=== PATIENT | female | born 1970 | race Caucasian/White ===

== ENCOUNTER 2016-08-04 14:58 | Observation (INO) ==
[2016-08-04] MEDS ORDERED: Ipratropium/Albuterol Neb 3 ML IH ONE (15:54)
[2016-08-04] MEDS ORDERED: methylPREDNISolone 125 MG/2 ML VIAL IVP ONE (15:54)
--- NOTE | 2016-08-04 15:58 | Emergency Department Note ---
Disposition Clinical Impression: Acute exacerbation of chronic obstructive airways disease Acute bronchitis Qualifiers: Bronchitis organism: other organism Qualified Code(s): J20.8 - Acute bronchitis due to other specified organisms Dyspnea Qualifiers: Dyspnea type: shortness of breath Qualified Code(s): R06.02 - Shortness of breath Disposition: Admitted As Inpatient Condition: Fair Referrals: NO,PCP [Primary Care Provider] - Forms: ED Satisfaction Letter Time of Disposition: 21:01 SOB HPI - General Chief Complaint: ED Shortness of Breath/Dyspnea Stated Complaint: FLANK PAIN, SOB Time Seen by Provider: 08/04/16 15:50 Source: patient Mode of arrival: private vehicle Limitations: no limitations Nursing Notes Reviewed: Yes Vital Signs Reviewed: Yes - History of Present Illness Pt Subjective Complaint: shortness of breath, cough Onset (ago): day(s) (2 days) Context: other (Started feeling some shortness of breath about 2 days ago and then started coughing and bringing up green sputum. She also has a lot of sinus congestion and drainage as well.) Severity: severe Consistency/Duration: constant, gradually worsening Improves with: rest Worsens with: exertion, coughing Known history of: asthma, congestive heart failure, PE Associated symptoms: Reports: pain with inspiration (Located in the right upper back), fever (She feels as though she has had temperatures but has not actually taken her temperature with a thermometer), cough, sputum production. Denies: chest pain Treatment prior to arrival: none Cough present: Yes Cough Description: Productive Sputum production: Yes Sputum Amount: Large Sputum Color: Green - Related Data Home Medications Medication Instructions Recorded Confirmed Albuterol Sulfate [Albuterol 2 puff IH Q4HR PRN 03/09/15 03/31/16 Inhaler] Budesonide/Formoterol 160/4.5 2 puff IH BID 03/09/15 03/31/16 [Symbicort] Albuterol Neb [AccuNeb] 1 vial IH 6XD PRN 11/30/15 03/31/16 Hydroxyzine HCl 25 mg PO Q6H PRN 11/30/15 03/31/16 Montelukast [Singulair] 10 mg PO DAILY 11/30/15 03/31/16 Nicotine Patch [Nicoderm] 21 mg TD DAILY 03/31/16 03/31/16 Oxybutynin [Ditropan] 5 mg PO BID 03/31/16 03/31/16 Previous Rx's Medication Instructions Recorded Blood-Glucose Meter, Drum-Type 1 each MC TID #1 kit 07/09/16 [Accu-Chek] Chair, Shower [SHOWER CHAIR] 1 each .ROUTE DAILY #1 each 07/09/16 Divalproex (24 HR) [Depakote ER 500 mg PO DAILY #30 tab.er.24h 07/09/16 (24 HR)] HYDROcodone/Acet 5/325 mg [[place] 1 tab PO Q6HR PRN #10 tablet 07/09/16 5-325 mg] Insulin DETEMIR [Levemir Flextouch] 30 unit SQ BID #100 mls 07/09/16 Insulin LISPRO [Humalog Kwikpen 10 unit SQ TIDAC #100 mls 07/09/16 U-100] Linagliptin [Tradjenta] 5 mg PO DAILY #30 tablet 07/09/16 Lisinopril [Zestril] 10 mg PO DAILY #30 tablet 07/09/16 Metoclopramide [Reglan] 10 mg PO QIDAC #120 tablet 07/09/16 Metoprolol XL (24 HR) Succ [Toprol 50 mg PO DAILY #30 tab.er.24h 07/09/16 Xl] PredniSONE 10 mg PO DAILY 8 Days 07/09/16 Venlafaxine [Effexor] 37.5 mg PO BID #60 tablet 07/09/16 Allergies Allergy/AdvReac Type Severity Reaction Status Date / Time No Known Allergies Allergy Verified 07/07/16 17:57 All systems ED: reviewed and negative except as stated. Constitutional: Reports: fever (Subjective). Denies: chills ENT ED: Reports: throat pain, congestion, other (Postnasal drainage). Denies: ear pain Cardiovascular: Reports: dyspnea on exertion, orthopnea, other (She complains of swelling to her feet). Denies: chest pain, palpitations Respiratory: Reports: cough, dyspnea, wheezes, sputum production Gastrointestinal: Denies: abdominal pain, nausea, vomiting, diarrhea Genitourinary: Denies: urgency, dysuria Musculoskeletal: Reports: back pain (To the upper back on the right hand side) Integumentary: Denies: rash Neurological: Denies: headache Past Medical History - Past Medical History Attestation: Yes The following information was validated with the patient. Source: patient, old records reviewed, nursing notes reviewed Medical history: Reports: arthritis, asthma, COPD, diabetes, GERD, hypertension , migraine, osteoporosis, pulmonary embolus, renal disease, syncope, other Surgical history: Reports: , cholecystectomy, other Psychiatric history: Reports: anxiety, bipolar, depression, other TOP CAGER history: Reports: no TOP CAGER history - Social History Smoking Status: Current every day smoker Smokeless Tobacco Status: No Alcohol use: Reports: none Drug use: Reports: none Physical Exam - General Limitations: no limitations General appearance: alert, in no apparent distress (Although she has frequent cough and is a little bit tachypneic.) - Head Head exam: atraumatic, normocephalic - Eye Eye exam: Present: normal appearance, PERRL, EOMI - ENT ENT exam: normal exam, normal oropharynx, mucous membranes moist, normal external ear exam - Neck Neck exam: Present: normal inspection, full ROM. Absent: meningismus - Chest Chest inspection: Present: normal inspection, symmetric chest wall rise. Absent : tenderness - Respiratory Respiratory exam: Present: wheezes (Diffuse bilaterally both anteriorly and posteriorly). Absent: stridor - Cardiovascular Cardiovascular exam: Present: normal rhythm, tachycardia, normal heart sounds - Abdominal Exam Abdominal exam: Present: soft, Non-Tender, other (Morbidly obese) - Extremities Exam Extremities exam: Present: full ROM, pedal edema (Mild to moderate bilaterally) . Absent: tenderness - Back Exam Back exam: Present: normal inspection. Absent: tenderness - Neurological Exam Neurological exam: Present: alert, oriented X3 - Psychiatric Psychiatric exam: Present: normal affect, normal mood - Skin Skin exam: Present: warm, dry. Absent: rash Course Course Narrative: Patient will presents with shortness of breath. She has a cough and wheezing as well. Cough is productive of thick green sputum and she has a lot of upper respiratory infection symptoms as well. This would imply an infectious problem. It could be pneumonia. It could be bronchitis aggravating her underlying lung disease. She is however a risk for congestive heart failure and is had PE in the past. I will initiate a workup. In the meantime we will get her breathing treatments and steroids and pain medications while waiting for results. Disposition will be based on diagnostic results and reevaluation. - Reevaluation(s) Reevaluation #1: The laboratory workup is negative, the chest x-ray is negative, the CAT scan does not show any evidence of pulmonary embolism but is showing some indications of inflammation. Patient is coughing up a lot of green material. I think that this is acute bronchitis that is exacerbating her COPD and causing her to need oxygen. She reports increasing her oxygen at home. Repeat clinical exam after aerosol treatments and steroids reveals persistent bronchospasm. I am going to arrange to admit the patient to the hospital. Time: 20:59 - Consultations Consultation #1: Dr. Long, hospitalist - I spoke to the hospitalist about the patient. We discussed the history and physical and diagnostic results. We discussed emergency department course and the fact the patient is still pretty short of breath at rest. She is accepted patient for admission to the hospital. She recommends Levaquin. We will get her started on here the patient will be admitted to the floor. Time: 21:16 Vital Signs Temperature 99.0 F 08/04/16 15:10 Pulse Rate 105 08/04/16 15:10 Respiratory Rate 20 08/04/16 15:10 Blood Pressure 169/74 08/04/16 15:10 O2 Sat by Pulse Oximetry 95 08/04/16 15:10 Temperature 99.0 F 08/04/16 15:10 Pulse Rate 93 08/04/16 19:25 Respiratory Rate 20 08/04/16 19:25 Blood Pressure 145/84 08/04/16 19:25 O2 Sat by Pulse Oximetry 95 08/04/16 19:25 Oxygen Delivery Oxygen Delivery Room Air Shortness of Breath/Dyspnea - Medical Records Medical records reviewed: Yes I reviewed the patient's medical records. - Lab Data Lab results reviewed: Yes I reviewed the patient's lab results. Result diagrams: 08/04/16 17:05 08/04/16 17:05 Lab Results 08/04/16 08/04/16 08/04/16 Range/Units 17:05 17:05 17:05 WBC 15.0 H (4.3-11.1) K/mcL RBC 4.08 (3.82-4.97) M/mcL Hgb 11.6 (11.5-15.4) g/dL Hct 36.1 (35.3-44.9) % MCV 88.5 (83.0-100.0) fL MCH 28.4 (28.0-33.3) pg MCHC 32.1 (31.6-35.5) g/dL RDW 14.8 H (11.5-14.5) % Plt Count 329 (140-400) K/mcL MPV 9.8 (9.4-12.4) fL Immature Gran % 0.8 (0-4) % Seg Neutrophils % 76.4 % Lymphocytes % 17.3 % Monocytes % 5.1 % Eosinophils % 0.1 % Basophils % 0.3 % Neutrophils # 11.5 H (1.6-8.9) K/mcL Lymphocytes # 2.6 (0.6-4.6) K/mcL Monocytes # 0.8 (0.0-1.3) K/mcL Eosinophils # 0.0 (0.0-0.6) K/mcL Basophils # 0.1 (0.0-0.2) K/mcL Immature Plt Fraction 3.1 (1.1-6.1) % PT 10.3 (9.4-12.1) Seconds INR 1.0 APTT 22.3 L (26.0-36.0) Seconds D-Dimer 519 H (0-500) ng/mLFEU Sodium 136 (136-145) mEq/L Potassium 4.0 (3.5-4.5) mEq/L Chloride 103 (98-109) mEq/L Carbon Dioxide 24 (19-29) mEq/L BUN 13 (7-20) mg/dL Creatinine 0.95 (0.57-1.11) mg/dL Est GFR ( Amer) > 60 (> 60) Est GFR (Non-Af Amer) > 60 (> 60) BUN/Creatinine Ratio 14 (6-26) Glucose 111 H (70-99) mg/dL Calculated Osmolality 283 (280-300) Calcium 8.5 L (8.6-10.8) mg/dL Troponin I (0-0.03) ng/mL B-Natriuretic Peptide (0-100) pg/mL 08/04/16 08/04/16 Range/Units 17:05 17:05 WBC (4.3-11.1) K/mcL RBC (3.82-4.97) M/mcL Hgb (11.5-15.4) g/dL Hct (35.3-44.9) % MCV (83.0-100.0) fL MCH (28.0-33.3) pg MCHC (31.6-35.5) g/dL RDW (11.5-14.5) % Plt Count (140-400) K/mcL MPV (9.4-12.4) fL Immature Gran % (0-4) % Seg Neutrophils % % Lymphocytes % % Monocytes % % Eosinophils % % Basophils % % Neutrophils # (1.6-8.9) K/mcL Lymphocytes # (0.6-4.6) K/mcL Monocytes # (0.0-1.3) K/mcL Eosinophils # (0.0-0.6) K/mcL Basophils # (0.0-0.2) K/mcL Immature Plt Fraction (1.1-6.1) % PT (9.4-12.1) Seconds INR APTT (26.0-36.0) Seconds D-Dimer (0-500) ng/mLFEU Sodium (136-145) mEq/L Potassium (3.5-4.5) mEq/L Chloride (98-109) mEq/L Carbon Dioxide (19-29) mEq/L BUN (7-20) mg/dL Creatinine (0.57-1.11) mg/dL Est GFR ( Amer) (> 60) Est GFR (Non-Af Amer) (> 60) BUN/Creatinine Ratio (6-26) Glucose (70-99) mg/dL Calculated Osmolality (280-300) Calcium (8.6-10.8) mg/dL Troponin I 0.01 (0-0.03) ng/mL B-Natriuretic Peptide 54 (0-100) pg/mL - Radiology Data Radiology results reviewed: Yes I reviewed the patient's radiology results. - EKG Data EKG attestation: Yes I reviewed and interpreted this EKG. EKG shows normal: Reports: sinus rhythm, axis, intervals, QRS complexes, ST-T waves Rate: Reports: tachycardia Interpretation: Reports: other (Sinus tachycardia. Otherwise no acute changes.)
[2016-08-04] MEDS ORDERED: *HR* HYDROmorphone (PF) 1 MG/ML SYRINGE IV ONE (16:02)
[2016-08-04] MEDS ORDERED: Ketorolac 30 MG/ML VIAL IV ONE (16:02)
[2016-08-04 17:16] LABS: Basophils # 0.1 K/mcL (0.0-0.2); Basophils % 0.3 %; Eosinophils % 0.1 %; Hematocrit 36.1 % (35.3-44.9); Hemoglobin 11.6 g/dL (11.5-15.4); Immature Granulocytes % 0.8 % (0-4); Immature Platelets 3.1 % (1.1-6.1); Lymphocytes # 2.6 K/mcL (0.6-4.6); Lymphocytes % 17.3 %; Mean Corpuscular HGB Conc 32.1 g/dL (31.6-35.5); Mean Corpuscular Hemoglobin 28.4 pg (28.0-33.3); Mean Corpuscular Volume 88.5 fL (83.0-100.0); Mean Platelet Volume 9.8 fL (9.4-12.4); Monocytes # 0.8 K/mcL (0.0-1.3); Monocytes % 5.1 %; Neutrophils # 11.5 K/mcL (1.6-8.9); Platelet Count 329 K/mcL (140-400); Red Blood Count 4.08 M/mcL (3.82-4.97); Red Cell Distribution Width 14.8 % (11.5-14.5); Segmented Neutrophils % 76.4 %
[2016-08-04 17:26] LABS: Prothrombin Time 10.3 Seconds (9.4-12.1)
[2016-08-04 17:28] LABS: Activated Partial Thrombo Time 22.3 Seconds (26.0-36.0)
[2016-08-04 17:30] LABS: BUN/Creatinine Ratio 14 (6-26); Blood Urea Nitrogen 13 mg/dL (7-20); Calcium 8.5 mg/dL (8.6-10.8); Carbon Dioxide 24 mEq/L (19-29); Chloride 103 mEq/L (98-109); Glucose 111 mg/dL (70-99); Osmolality,Calculated 283 (280-300); Sodium 136 mEq/L (136-145); eGFR For African Americans > 60 (> 60); eGFR For Non-African Americans > 60 (> 60)
[2016-08-04] MEDS ORDERED: Levofloxacin 750 MG/150 ML 750 MG/150 ML BAG IVPB ONE (21:16)
[2016-08-04] MEDS ORDERED: hydrOXYzine pamoate 25 MG CAPSULE PO PRN (21:57)
[2016-08-04] MEDS ORDERED: Naloxone 0.4 MG/ML INJ IVP PRN (22:00)
[2016-08-04] MEDS ORDERED: *HR* Morphine 2 MG/ML SYRINGE IVP PRN (22:00)
[2016-08-04] MEDS ORDERED: Dextrose Gel 15 GM PO PRN ×2 (22:00)
[2016-08-04] MEDS ORDERED: *HR* Promethazine 25 MG/ML VIAL IVP PRN (22:00)
[2016-08-04] MEDS ORDERED: MOM Conc 10 ML UD.LIQ PO PRN (22:00)
[2016-08-04] MEDS ORDERED: D5% in Water 1,000 ML IV PRN (22:00)
[2016-08-04] MEDS ORDERED: Mag Hydrox/Al Hydrox/Simeth 30 ML UDC PO PRN (22:00)
[2016-08-04] MEDS ORDERED: Acetaminophen 325 MG TABLET PO PRN (22:00)
[2016-08-04] MEDS ORDERED: *HR* Dextrose 50 % in Water (Syg) 50 ML SYRINGE IVP PRN (22:00)
[2016-08-04] MEDS ORDERED: Albuterol 2.5 MG/3 ML NEBULIZER IH PRN (22:10)
[2016-08-04] MEDS ORDERED: Dextromethorphan Polistrx(12h) 30 MG/5 ML UDC PO STA (22:20)
--- NOTE | 2016-08-04 22:25 | Internal Med History&Physical ---
Date of Encounter: 08/04/16 Time of Encounter: 22:00 Assessment and Plan (1) Acute and chronic respiratory failure with hypoxia Current visit: Yes Status: Acute . (2) Acute bronchitis and bronchiolitis Current visit: Yes Status: Acute . (3) Acute exacerbation of chronic obstructive airways disease Current visit: Yes Status: Acute . (4) At risk for abuse of opiates Current visit: Yes Status: Chronic . (5) At risk for adverse drug event Current visit: Yes Status: Chronic . (6) At risk for polypharmacy Current visit: Yes Status: Chronic . (7) COPD (chronic obstructive pulmonary disease) Current visit: Yes Status: Chronic . Qualifiers: COPD type: COPD with acute exacerbation Qualified Code(s): J44.1 - Chronic obstructive pulmonary disease with (acute) exacerbation (8) Diabetes type 2, uncontrolled Current visit: Yes Status: Chronic . Qualifiers: Diabetes mellitus complication status: with unspecified complications Diabetes mellitus retirement insulin use: unspecified retirement insulin use status Qualified Code(s): E11.8 - Type 2 diabetes mellitus with unspecified complications; E11.65 - Type 2 diabetes mellitus with hyperglycemia (9) Anxiety and depression Current visit: Yes Status: Chronic . (10) Bipolar 1 disorder Current visit: Yes Status: Chronic . (11) CKD (chronic kidney disease) stage 3, GFR 30-59 ml/min Current visit: Yes Status: Chronic . (12) Chronic pain associated with significant psychosocial dysfunction Current visit: Yes Status: Chronic . (13) Morbid obesity with BMI of 60.0-69.9, adult Current visit: Yes Status: Chronic . (14) Nicotine dependence with nicotine-induced disorder Current visit: Yes Status: Chronic . Qualifiers: Nicotine product type: cigarettes Qualified Code(s): F17.219 - Nicotine dependence, cigarettes, with unspecified nicotine-induced disorders (15) VITO (obstructive sleep apnea) Current visit: Yes Status: Chronic . (16) Polysubstance abuse Current visit: Yes Status: Chronic . (17) Protein-calorie malnutrition, mild Current visit: Yes Status: Chronic . (18) Tobacco abuse Current visit: Yes Status: Chronic . (19) Hypoventilation associated with obesity syndrome Current visit: Yes Status: Chronic . (20) Debility, unspecified Current visit: Yes Status: Acute . (21) History of noncompliance with medical treatment, presenting hazards to health Current visit: Yes Status: Chronic . (22) Noncompliance with CPAP treatment Current visit: Yes Status: Chronic . (23) Delirium due to conditions classified elsewhere Current visit: Yes Status: Acute (24) Toxic metabolic encephalopathy Current visit: Yes Status: Acute . Internal Medicine - H&P: HPI Chief complaint: Difficulty breathing. Flank pain. Admitted From: Emergency Dept Plans for Post Hospital Care: Home History of present illness: Ms. Boyd is a 45 year old female with medical history significant for advanced COPD, chronic respiratory failure home oxygen dependent, VITO-CPAP noncompliant (suspect OHS), diastolic CHF, type 2 diabetes mellitus, asthma, GERD, osteoarthritis, osteoporosis, H/O DVT/PE, CKD, bipolar disorder, depression and anxiety disorder, polysubstance abuse hx (cocaine, marijuana, prescription drugs), H/O medical treatment noncompliance, morbid obesity, debility/severe deconditioning, nicotine dependency/abuse. The patient was visited and interviewed and examined. The patient is admitted to [facility] via the emergency department when she presented with reports of progressive shortness of breath and increasing work of breathing in spite of home oxygen and bronchodilator therapy. Symptoms have progressed over a week's period of time since the 2 days leading up to admission. Acknowlegded a productive cough and audible wheezing. Sputum was thick and green and copious. Sinus congestion and drainage has also been experienced Pain was elicited with deep inspiration and cough in the chest and upper abdomen and flank/right upper back. She has experienced subjective feverishness and chills. She has known advanced COPD and is home oxygen dependent. She also has obstructive sleep apnea (and likely obstructive hypoventilation syndrome in the obese) but has been noncompliant with CPAP therapy. Her oxygen demands have increased of late concurrent respiratory symptoms. She continues to smoke. Cannot validate any specific sick contacts. Acknowledges no recent travel. denies any recent hospitalizations or prolonged immobilization. Denies any concurrent pain or swelling of lower extremities. History is noteworthy for prior DVT and PEs. Patient is not on any current chronic anticoagulation therapy. She has experienced rather predictable seasonal exacerbations of bronchitis and pneumonia. Current symptoms are exacerbated with exertion and coughing but does seemingly improved while quiet and at rest. Denies any evidence of bleeding events (hemoptysis epistaxis hematemesis and melena hematochezia by report rectum hematuria cutaneous ecchymoses). Findings in the ED: Temperature 99 pulse 90-105 respiration 20 BP 140-169/70-84 O2 saturation 95% room air. WBC 15 hemoglobin 11.6 platelets 229, 000. RDW 14.8. Differential showed an increase in neutrophils. PT 10.3 INR 1 PTT 22.3 d-dimer 519. Metabolic panel normal BUN 13 creatinine 0.95. Glucose 111 osmolality 283. Calcium 8.5. Troponin 0.01. BNpeptide 54. CT of chest demonstrated no evidence for pulmonary embolism or aortic dissection/aneurysm. Scattered subtle faint centrilobular nodules, likely related to infection versus inflammation seen. No evidence of significant mediastinal adenopathy. Heart and pericardium demonstrated no acute abnormality. Centrilobular nodules greatest in the right hemithorax and left upper lobe. No evidence for pleural effusion or pneumothorax. Limited images of the upper abdomen and soft tissue and bone unremarkable. Portable chest x-ray revealed no acute or active cardiopulmonary process. Stable elevation of right hemidiaphragm diaphragm noted. No overt pulmonary edema. EKG shows normal sinus rhythm/tachycardia. No acute ischemic changes. Preliminary impression suggests acute presentation of chronic obstructive pulmonary disease with evidence for bilateral bronchitis- bronchiolitis-pneumonitis. Presentation is associated with acute on chronic hypoxic respiratory failure. Systemic inflammatory response syndrome and sepsis criteria are met at the time of admission. Acute veno-thromboembolic disease/pulmonary emboli was ruled out with CTA of chest findings. Screening studies for ACS/UA/CHF are benign. The patient is at risk for acute clinical decline and mobility given her presenting chief complaints, clinical findings and comorbidities. We will continue treatment progress comprehensively. Cumulative laboratory and radiographic data base was reviewed, considered and discussed. Pertinent ancillary medical records including ECW and PCI documentation, when available, was reviewed and considered. Given the patient's presenting concerns, past medical history, clinical findings and symptoms, she is admitted at this time will undergo further evaluation and disposition. Orders were written as per the computerized physician supervisor border department system.......................................................................... .................... Consultative opinions will be sought as clinical circumstances justify. Pain management needs will be addressed. Laboratory and radiographic data base will be updated as appropriate. Studies include: Cultures of blood and urine and sputum, cardiac injury panel, BNP, metabolic and hematologic panel, magnesium, phosphorus, ionized calcium, thyroid panel, lipid profile, A1c, C-peptide, CRP, sedimentation rate, respiratory infection profile, respiratory virus panel, blood gas, UDS, U/A, coagulation profile, lactic acid, serologies, etc. Precautions: Aspiration, fall, delirium protocol/surveillance initiated. Telemetry with continuous hemodynamic monitoring and pulse oximetry initiated. Empiric antibody coverage: Intravenous Rocephin and azithromycin pending culture data. Special studies: CTA chest, chest x-ray, telemetry, EKG. Pulmonary toilet: Incentive spirometry, aerosol bronchodilator, mucolytic, antitussive, supplemental oxygen. Corticosteroid therapy. CPAP/BiPAP supplemental oxygen delivery therapy. Aerosol Mucomyst therapy. Fluid and electrolyte repletion efforts will proceed. Careful attention to fluid balance and renal recovery will be emphasized. Avoidance of nephrotoxic exposure and adverse drug drug interaction in the setting of impaired renal function will be monitored closely. Acute coronary syndrome protocol/surveillance initiated. DVT and PUD prophylaxis initiated: PPI therapy, intermittent pneumatic cuffs. Subcutaneous heparin/lovenox. Early ambulation will be encouraged. Immunization updates recommended. Influenza and pneumococcal vaccinations as part of ongoing preventative healthcare recommendations strongly recommended. Smoking cessation counseling briefly addressed. Patient accepts nicotine substitution during this hospitalization. Advanced care directive discussion briefly addressed. Patient does declare specific healthcare restrictions at this time. Cardiovascular risk appraisal and cardiovascular risk reduction efforts will be emphasized. Physical and occupational therapy may be consulted to assess patient's functional capacity and progress mobility as her circumstances permit. Sliding scale, basal and nutritional insulin coverage, ADA dietary restraint and schedule an as-needed basis fingerstick glucose assessments were initiated. Nutrition/diabetes education counseling may be considered as circumstances justify. Outpatient medication schedules will be reviewed confirmed and facilitated as appropriate. Reconciliation of home treatments including adjustments, substitutions and reintroduction into the treatment regimen will address necessary maintenance therapies for chronic pre-existing medical conditions. Plan of care has been reviewed and discussed in detail with the patient. Questions addressed. Hospital course will depend upon collective clinical findings, treatment response and potential consultative interventions. Patient is at risk for further acute clinical decline and mobility due to her presenting chief complaints and comorbid conditions. Condition is serious. Prognosis is cautiously optimistic. CODE STATUS is DNR, comfort care arrest, DNI Past Med Surg Social Fam HX - Past Medical History Source: old records reviewed Medical history: arthritis, asthma, CHF (2016 echo LVEF 60%. Normal LV chamber size wall thickness and function. Normal RV chamber size and thickness and function. No significant valvular dysfunction. No evidence of pulmonary hypertension. Mild left ventricular diastolic dysfunction. Mildly dilated left atrium. Trace tricuspid regurgitation.), COPD, coronary artery disease, DVT, diabetes, fibromyalgia, GERD, hyperlipidemia, hypertension, migraine, osteoporosis, pulmonary embolus, renal disease, syncope, other Psychiatric history: anxiety, bipolar, depression, other - Past Surgical History Surgical History: , cholecystectomy, other - Social History Smoking Status: Current every day smoker Packs per day: 1+ (~30yrs) Smokeless Tobacco Status: No Alcohol use: none Drug use: none Occupational status: unemployed, disabled Current living situation: With Family Activity Level: Independent ambulation, Mostly sedentary Recent Out of Country Travel Within the Last 8 Weeks: No Exposure or Possible Exposure to Illness During Travel: No - Family History Father Living Status: Hx Family Cancer: Yes (testicular, brain) Mother Family Member Ethnicity: Non- Living Status: Hx Family Cardiac Disorders: Yes (NH) Hx Family Endocrine Disorder: Yes (DM) Hx Family Medical Disorders: Yes (HTN) Brother Living Status: Still Living Hx Family Cardiac Disorders: Yes (NH, CAD, HTN, HLD) Internal Medicine - H&P: Meds Albuterol Sulfate [Albuterol Inhaler] 2 puff IH Q4HR PRN 03/09/15 [History] Budesonide/Formoterol 160/4.5 [Symbicort] 2 puff IH BID 03/09/15 [History] Albuterol Neb [AccuNeb] 1 vial IH 6XD PRN 11/30/15 [History] Hydroxyzine HCl 25 mg PO Q6H PRN 11/30/15 [History] Montelukast [Singulair] 10 mg PO DAILY 11/30/15 [History] Nicotine Patch [Nicoderm] 21 mg TD DAILY 03/31/16 [History] Oxybutynin [Ditropan] 5 mg PO BID 03/31/16 [History] Divalproex (24 HR) [Depakote ER (24 HR)] 500 mg PO DAILY #30 tab.er.24h [Rx] HYDROcodone/Acet 5/325 mg [[place] 5-325 mg] 1 tab PO Q6HR PRN #10 tablet [Rx] Insulin DETEMIR [Levemir Flextouch] 30 unit SQ BID #100 mls 07/09/16 [Rx] Insulin LISPRO [Humalog Kwikpen U-100] 10 unit SQ TIDAC #100 mls 07/09/16 [Rx] Linagliptin [Tradjenta] 5 mg PO DAILY #30 tablet 07/09/16 [Rx] Lisinopril [Zestril] 10 mg PO DAILY #30 tablet 07/09/16 [Rx] Metoclopramide [Reglan] 10 mg PO QIDAC #120 tablet 07/09/16 [Rx] Metoprolol XL (24 HR) Succ [Toprol Xl] 50 mg PO DAILY #30 tab.er.24h 07/09/16 [ Rx] PredniSONE 10 mg PO DAILY 8 Days 07/09/16 [Rx] Venlafaxine [Effexor] 37.5 mg PO BID #60 tablet 07/09/16 [Rx] Allergies No Known Allergies Allergy (Verified 07/07/16 17:57) All Systems PM: A 10-system review of systems was performed and is negative for pertinent findings except as documented above in the HPI. - Constitutional Constitutional: as per HPI, fatigue, malaise, no chills, no fever(s), no night sweats - EENT Eyes: as per HPI, no change in vision, no discharge, no pain, no photophobia Ears: as per HPI, no ear discharge, no ear pain, no tinnitus Nose, mouth and throat: as per HPI, nasal congestion, no dysphagia, no nasal discharge, no neck pain, no sore throat - Cardiovascular Cardiovascular ROS IM: as per HPI, chest pain, dyspnea, dyspnea on exertion, no claudication, no diaphoresis, no lightheadedness, no palpitations, no syncope - Respiratory Respiratory: as per HPI, cough, dyspnea, dyspnea on exertion, wheezing, pain on inspiration, chest congestion, pain with cough, no hemoptysis, no stridor, no excessive phlegm production - Gastrointestinal Gastrointestinal: as per HPI, abdominal pain, other, no diarrhea, no hematemesis , no hematochezia, no melena, no nausea, no vomiting - Genitourinary Genitourinary: as per HPI, other, no change in urinary stream, no dysuria, no flank pain, no hematuria - Musculoskeletal Musculoskeletal ROS IM: as per HPI, arthralgias, back pain, myalgias, no numbness, no tingling - Integumentary Integumentary IM: as per HPI, no rash, no unusual bruising - Neurological Neurological ROS: as per HPI, no confusion, no convulsions, no focal weakness, no numbness, no tingling, no tremor(s) - Psychiatric Psychiatric: as per HPI - Endocrine Endocrine IM: as per HPI - Hematologic/Lymphatic Hematologic/Lymphatic: as per HPI, no easy bruising - Allergic/Immunologic Allergic/Immunologic: as per HPI - Constitutional Vitals: Temp Pulse Resp BP Pulse Ox 98.1 F 96 22 141/74 96 08/04/16 22:17 08/04/16 22:17 08/04/16 22:17 08/04/16 22:17 08/04/16 22:17 General appearance: Present: cooperative, mild distress, A&O X 3, morbidly obese , answers questions appropriately - Head Head exam: Present: atraumatic, normal inspection, normocephalic - Eye Eye exam: Present: EOMI, PERRL, conjuntiva pink, sclera anicteric Pupils: Present: normal accommodation, PERRL - ENT ENT exam: Present: mucous membranes moist, normal external ear exam, normal oropharynx - Neck Neck exam general surgery: Present: full ROM, supple, trachea midline. Absent: lymphadenopathy, tenderness, nuchal rigidity - Respiratory Respiratory exam: Present: accessory muscle use, chest wall tenderness, decreased breath sounds, prolonged expiratory phase, rhonchi, wheezes. Absent: rales, respiratory distress, stridor, tachypnea - Cardiovascular Cardiovascular exam: Present: distant heart sounds, RRR, +S1, +S2, tachycardia. Absent: diastolic murmur, gallop, rubs, systolic murmur - GI/Abdominal GI/Abdominal exam: Present: diminished bowel sounds, distended, soft, no peritoneal signs. Absent: tenderness - Extremities Exam Extremities exam: Present: full ROM, pedal edema, tenderness, warm, radial pulses palpable and symetrical. Absent: calf tenderness, cyanotic - Neurological Exam Neurological exam: Present: alert, CN II-XII intact, oriented X3, no focal deficits. Absent: pronater drift, facial droop, speech deficit - Psychiatric Psychiatric exam: Present: normal affect, normal mood - Skin Skin exam: Present: dry, intact, warm. Absent: petechiae, rash, urticaria, vesicles Internal Med - H&P Results - Labs CBC & Chem 7: 08/05/16 01:00 08/05/16 01:00 - Impressions Vital Signs Temp Pulse Resp BP Pulse Ox 08/04/16 22:17 98.1 F 96 22 141/74 96 08/04/16 21:47 20 145/84 08/04/16 19:25 93 20 145/84 95 08/04/16 17:26 97 20 145/84 95 08/04/16 16:08 20 95 08/04/16 15:10 99.0 F 105 20 169/74 95 Intake and Output 08/04/16 08/04/16 08/04/16 07:59 15:59 23:59 Other: Stool Characteristics Normal for Patient Weight 154.221 kg 152.407 kg Blood Glucose* 304 Patient Weight 08/04/16 23:59 Weight 152.407 kg Short CBC 08/04/16 Range/Units 17:05 WBC 15.0 H (4.3-11.1) K/mcL Hgb 11.6 (11.5-15.4) g/dL Hct 36.1 (35.3-44.9) % Plt Count 329 (140-400) K/mcL Neutrophils # 11.5 H (1.6-8.9) K/mcL BMP 08/04/16 Range/Units 17:05 Sodium 136 (136-145) mEq/L Potassium 4.0 (3.5-4.5) mEq/L Chloride 103 (98-109) mEq/L Carbon Dioxide 24 (19-29) mEq/L BUN 13 (7-20) mg/dL Creatinine 0.95 (0.57-1.11) mg/dL Glucose 111 H (70-99) mg/dL Calcium 8.5 L (8.6-10.8) mg/dL Cardiac Enzymes 08/04/16 Range/Units 17:05 Troponin I 0.01 (0-0.03) ng/mL Abnormal lab results WBC 15.0 K/mcL (4.3-11.1) H 08/04/16 17:05 RDW 14.8 % (11.5-14.5) H 08/04/16 17:05 Neutrophils # 11.5 K/mcL (1.6-8.9) H 08/04/16 17:05 APTT 22.3 Seconds (26.0-36.0) L 08/04/16 17:05 D-Dimer 519 ng/mLFEU (0-500) H 08/04/16 17:05 Glucose 111 mg/dL (70-99) H 08/04/16 17:05 Calcium 8.5 mg/dL (8.6-10.8) L 08/04/16 17:05 Allergies Allergy/AdvReac Type Severity Reaction Status Date / Time No Known Allergies Allergy Verified 07/07/16 17:57 Laboratory Results WBC 15.0 K/mcL (4.3-11.1) H 08/04/16 17:05 RBC 4.08 M/mcL (3.82-4.97) 08/04/16 17:05 Hgb 11.6 g/dL (11.5-15.4) 08/04/16 17:05 Hct 36.1 % (35.3-44.9) 08/04/16 17:05 MCV 88.5 fL (83.0-100.0) 08/04/16 17:05 MCH 28.4 pg (28.0-33.3) 08/04/16 17:05 MCHC 32.1 g/dL (31.6-35.5) 08/04/16 17:05 RDW 14.8 % (11.5-14.5) H 08/04/16 17:05 Plt Count 329 K/mcL (140-400) 08/04/16 17:05 MPV 9.8 fL (9.4-12.4) 08/04/16 17:05 Immature Gran % 0.8 % (0-4) 08/04/16 17:05 Seg Neutrophils % 76.4 % 08/04/16 17:05 Lymphocytes % 17.3 % 08/04/16 17:05 Monocytes % 5.1 % 08/04/16 17:05 Eosinophils % 0.1 % 08/04/16 17:05 Basophils % 0.3 % 08/04/16 17:05 Neutrophils # 11.5 K/mcL (1.6-8.9) H 08/04/16 17:05 Lymphocytes # 2.6 K/mcL (0.6-4.6) 08/04/16 17:05 Monocytes # 0.8 K/mcL (0.0-1.3) 08/04/16 17:05 Eosinophils # 0.0 K/mcL (0.0-0.6) 08/04/16 17:05 Basophils # 0.1 K/mcL (0.0-0.2) 08/04/16 17:05 Immature Plt Fraction 3.1 % (1.1-6.1) 08/04/16 17:05 PT 10.3 Seconds (9.4-12.1) 08/04/16 17:05 INR 1.0 08/04/16 17:05 APTT 22.3 Seconds (26.0-36.0) L 08/04/16 17:05 D-Dimer 519 ng/mLFEU (0-500) H 08/04/16 17:05 Sodium 136 mEq/L (136-145) 08/04/16 17:05 Potassium 4.0 mEq/L (3.5-4.5) 08/04/16 17:05 Chloride 103 mEq/L (98-109) 08/04/16 17:05 Carbon Dioxide 24 mEq/L (19-29) 08/04/16 17:05 BUN 13 mg/dL (7-20) 08/04/16 17:05 Creatinine 0.95 mg/dL (0.57-1.11) 08/04/16 17:05 Est GFR ( Amer) > 60 (> 60) 08/04/16 17:05 Est GFR (Non-Af Amer) > 60 (> 60) 08/04/16 17:05 BUN/Creatinine Ratio 14 (6-26) 08/04/16 17:05 Glucose 111 mg/dL (70-99) H 08/04/16 17:05 Calculated Osmolality 283 (280-300) 08/04/16 17:05 Calcium 8.5 mg/dL (8.6-10.8) L 08/04/16 17:05 Troponin I 0.01 ng/mL (0-0.03) 08/04/16 17:05 B-Natriuretic Peptide 54 pg/mL (0-100) 08/04/16 17:05 Impressions Chest X-Ray 08/04/16 15:54 IMPRESSION: No acute cardiopulmonary findings. D/ / Debbie Acosta MD / Debbie Acosta MD Interpreting Provider: Debbie Acosta MD Chest CTA 08/04/16 17:49 IMPRESSION: No evidence of pulmonary embolism. Scattered subtle faint centrilobular nodules, likely related to infection/inflammation. D/ / Boston Leon MD / Boston Leon MD Interpreting Provider: Boston Leon MD
[2016-08-04] MEDS: Ipratropium/Albuterol Neb 3 ML IH SCH (22:42)
[2016-08-04] MEDS: 0.9 % Sodium Chloride 1,000 ML IVC SCH (23:11)
[2016-08-04] MEDS: Famotidine 20 MG TABLET PO SCH (23:13)
[2016-08-04] MEDS: Insulin LISPRO 300 UNITS/3 ML VIAL SQ SCH (23:27)
[2016-08-04 23:29] LABS: Hemoglobin A1C 10.6 %
[2016-08-05 01:12] LABS: Adenovirus Not Detected (Not Detect); Bordetella Pertussis Not Detected (Not Detect); Chlamydophila pneumoniae Not Detected (Not Detect); Coronavirus 229E Not Detected (Not Detect); Coronavirus HKU1 Not Detected (Not Detect); Coronavirus NL63 Not Detected (Not Detect); Coronavirus OC43 ***DETECTED*** (Not Detect); Human Metapneumovirus Not Detected (Not Detect); Human Rhinovirus/Enterovirus Not Detected (Not Detect); Influenza A Subtype 2009 H1 Not Detected (Not Detect); Influenza A Untypeable Not Detected (Not Detect); Influenza B Not Detected (Not Detect); Mycoplasma pneumoniae Not Detected (Not Detect); Parainfluenza Virus 1 Not Detected (Not Detect); Parainfluenza Virus 2 Not Detected (Not Detect); Parainfluenza Virus 3 Not Detected (Not Detect); Parainfluenza Virus 4 Not Detected (Not Detect); Respiratory Syncytial Virus Not Detected (Not Detect)
[2016-08-05 01:25] LABS: Hematocrit 35.8 % (35.3-44.9); Hemoglobin 11.6 g/dL (11.5-15.4); Mean Corpuscular HGB Conc 32.4 g/dL (31.6-35.5); Mean Corpuscular Hemoglobin 28.6 pg (28.0-33.3); Mean Corpuscular Volume 88.2 fL (83.0-100.0); Mean Platelet Volume 10.3 fL (9.4-12.4); Platelet Count 320 K/mcL (140-400); Red Blood Count 4.06 M/mcL (3.82-4.97); Red Cell Distribution Width 14.6 % (11.5-14.5)
[2016-08-05 01:32] LABS: Bilirubin,Urine Small (Negative); Blood,Urine Trace (Negative); Clarity,Urine Clear (Clear); Color,Urine Yellow (Yellow); Glucose,Urine (UA) >=1000 mg/dL (Normal); Ketones,Urine Negative (Negative); Leukocyte Esterase,Urine Negative (Negative); Nitrite,Urine Negative (Negative); Protein,Urine >=300 mg/dL (Neg-Trace); Specific Gravity,Urine > 1.030 (1.010-1.025); Urobilinogen,Urine Normal (Normal)
[2016-08-05 01:35] LABS: Bacteria,Urine None Seen per hpf (None-Few); Hyaline Casts,Urine None Seen per lpf (None-Few); Squamous Epithelial Cell,Urine Many per lpf (None-Few); WBC,Urine 0-3 per hpf (0-3)
[2016-08-05 01:39] LABS: Amphetamine Screen,Urine Negative ng/mL (Cutoff=1000); Barbiturate Screen,Urine Negative ng/mL (Cutoff=200); Benzodiazepines Screen,Urine Negative ng/mL (Cutoff=200); Cannabinoid Screen,Urine Positive ng/mL (Cutoff = 50); Cocaine Screen,Urine Negative ng/mL (Cutoff= 300); Opiate Screen,Urine Positive ng/mL (Cutoff=300); Phencyclidine Screen,Urine Negative ng/mL (Cutoff=25)
[2016-08-05 01:43] LABS: Calcium 8.3 mg/dL (8.6-10.8); Chol/HDL Ratio 3.4 (0-4.9); Magnesium 1.7 mg/dL (1.6-2.6); Phosphorous 4.7 mg/dL (2.3-4.7); Potassium 4.5 mEq/L (3.5-4.5)
[2016-08-05] MEDS: *HR* OxyCODONE Immed Rel 5 MG TABLET PO PRN ×3 (04:16→21:23)
[2016-08-05] MEDS: Benzonatate 100 MG CAPSULE PO PRN ×2 (04:16→10:07)
[2016-08-05] MEDS: Ipratropium/Albuterol Neb 3 ML IH SCH ×4 (04:54→21:59)
[2016-08-05] MEDS ORDERED: INSULIN LISPRO 10 UNIT SQ SCH (07:30)
[2016-08-05] MEDS ORDERED: NON-FORMULARY MEDICATION 1 EACH EACH (Insulin Detemir [Levemir Flextouch] 30 UNIT) SQ SCH (09:00)
[2016-08-05] MEDS: Insulin LISPRO 300 UNITS/3 ML VIAL SQ SCH ×7 (10:04→20:34)
[2016-08-05] MEDS: Nicotine 21 MG PATCH.TD24 TD SCH (10:05)
[2016-08-05] MEDS: Insulin DETEMIR 100 UNIT/ML X5UNITS SQ SCH ×2 (10:05→20:33)
[2016-08-05] MEDS: Divalproex (24 HR) 500 MG TABLET PO SCH (10:05)
[2016-08-05] MEDS: Azithromycin 500 MG in D5% in Water 250 ML IVPB SCH (10:06)
[2016-08-05] MEDS: Metoprolol XL (24 HR) Succ 50 MG TAB.ER.24H PO SCH (10:06)
[2016-08-05] MEDS: Famotidine 20 MG TABLET PO SCH ×2 (10:06→20:17)
[2016-08-05] MEDS: predniSONE 20 MG TABLET PO SCH (10:06)
--- NOTE | 2016-08-05 15:13 | Internal Med Progress Note ---
Date of Encounter: 08/05/16 Time of Encounter: 09:55 - Assessment and plan (1) Acute and chronic respiratory failure with hypoxia Current Visit: Yes Status: Acute Assessment and plan: Improving. Due to exacerbation of COPD and acute bronchitis. Continue current management with intravenous steroids, nebulizer treatments. Also on IV antibiotics. (2) Acute bronchitis and bronchiolitis Current Visit: Yes Status: Acute Assessment and plan: Continue antibiotics. (3) Acute exacerbation of chronic obstructive airways disease Current Visit: Yes Status: Acute Assessment and plan: Continue meds, start IV steroids. Continue O2 supplementation. Wean FiO2 as tolerated. (4) Tobacco abuse Current Visit: Yes Status: Chronic Assessment and plan: Surgeon about cessation. Patient willing to make the effort. Has nicotine patch ordered. (5) DVT prophylaxis Current Visit: Yes Status: Acute Assessment and plan: With subcutaneous heparin - Subjective Interval history: Patient is feeling better today. Her respiratory status is improving. Denies any chest pain. Continues to have cough. Still having wheezing. - Constitutional Vitals: Temp Pulse Resp BP Pulse Ox 97.6 F 84 16 125/79 94 L 08/05/16 14:59 08/05/16 14:59 08/05/16 14:59 08/05/16 14:59 08/05/16 14:59 General appearance: Present: cooperative, mild distress, A&O X 3, morbidly obese , answers questions appropriately - Neck Neck exam general surgery: Present: supple, trachea midline. Absent: lymphadenopathy - Respiratory Respiratory exam: Present: prolonged expiratory phase, wheezes. Absent: accessory muscle use, rales, rhonchi - Cardiovascular Cardiovascular exam: Present: RRR, +S1, +S2. Absent: diastolic murmur, gallop, rubs, systolic murmur - GI/Abdominal GI/Abdominal exam: Present: normal bowel sounds, soft, no peritoneal signs. Absent: distended, tenderness - Extremities Exam Extremities exam: Present: warm, radial pulses palpable and symetrical. Absent : calf tenderness, cyanotic, pedal edema - Neurological Exam Neurological exam: Present: CN II-XII intact, oriented X3, no focal deficits. Absent: facial droop, speech deficit Internal Medicine: Result - Labs CBC & Chem 7: 08/05/16 01:00 08/05/16 01:00 Labs: Short CBC 08/05/16 Range/Units 01:00 WBC 11.0 (4.3-11.1) K/mcL Hgb 11.6 (11.5-15.4) g/dL Hct 35.8 (35.3-44.9) % Plt Count 320 (140-400) K/mcL BMP 08/05/16 01:00 Sodium 131 L Potassium 4.5 Chloride 100 Carbon Dioxide 21 BUN 18 Creatinine 1.28 H Glucose 392 H Calcium 8.3 L Cardiac Enzymes 08/05/16 08/05/16 Range/Units 01:00 04:10 Troponin I 0.00 0.01 (0-0.03) ng/mL Urine 08/05/16 Range/Units 01:00 Urine Color Yellow (Yellow) Urine Clarity Clear (Clear) Urine pH 5.0 (5.0-8.0) pH Units Ur Specific [place] > 1.030 H (1.010-1.025) Urine Protein >=300 H (Neg-Trace) mg/dL Urine Glucose (UA) >=1000 H (Normal) mg/dL - ABG Interpretation ABG results: PT/INR, D-dimer PT 10.3 Seconds (9.4-12.1) 08/04/16 17:05 D-Dimer 519 ng/mLFEU (0-500) H 08/04/16 17:05 Consult Discharge Plan - Plan Referrals: NO,PCP [Primary Care Provider] - - Attending Attestation This document has been at least partially created by [employer] recognition technology by Dr. Middleton. Errors in grammar, wording or other phrases may exist. If errors are found after the documentation is signed, they will be addressed individually in the addendum section of this document when appropriate. Medical Decision Making - MDM Narrative Medical decision making narrative: Moderate risk for complications - Lab Data Lab results reviewed: Yes I reviewed the patient's lab results. Result diagrams: 08/05/16 01:00 08/05/16 01:00 Lab Results 08/04/16 08/04/16 08/05/16 Range/Units 22:25 23:30 01:00 WBC 11.0 (4.3-11.1) K/mcL RBC 4.06 (3.82-4.97) M/mcL Hgb 11.6 (11.5-15.4) g/dL Hct 35.8 (35.3-44.9) % MCV 88.2 (83.0-100.0) fL MCH 28.6 (28.0-33.3) pg MCHC 32.4 (31.6-35.5) g/dL RDW 14.6 H (11.5-14.5) % Plt Count 320 (140-400) K/mcL MPV 10.3 (9.4-12.4) fL Sodium (136-145) mEq/L Potassium (3.5-4.5) mEq/L Chloride (98-109) mEq/L Carbon Dioxide (19-29) mEq/L BUN (7-20) mg/dL Creatinine (0.57-1.11) mg/dL Est GFR ( Amer) (> 60) Est GFR (Non-Af Amer) (> 60) BUN/Creatinine Ratio (6-26) Glucose (70-99) mg/dL POC Glucose 304 H (58-89) Calculated Osmolality (280-300) Calcium (8.6-10.8) mg/dL Phosphorus (2.3-4.7) mg/dL Magnesium (1.6-2.6) mg/dL Troponin I (0-0.03) ng/mL B-Natriuretic Peptide (0-100) pg/mL Triglycerides (< 150) mg/dL Cholesterol (< 200) mg/dL LDL Cholesterol, Calc (0-99) mg/dL VLDL Cholesterol, Calc (< 31) mg/dL HDL Cholesterol (40-59) mg/dL Cholesterol/HDL Ratio (0-4.9) Urine Color (Yellow) Urine Clarity (Clear) Urine pH (5.0-8.0) pH Units Ur Specific [place] (1.010-1.025) Urine Protein (Neg-Trace) mg/dL Urine Glucose (UA) (Normal) mg/dL Urine Ketones (Negative) mg/dL Urine Blood (Negative) Urine Nitrite (Negative) Urine Bilirubin (Negative) Urine Urobilinogen (Normal) mg/dL Ur Leukocyte Esterase (Negative) Urine Microscopic RBC (0-3) per hpf Urine Microscopic WBC (0-3) per hpf Ur Squamous Epith Cells (None-Few) per lpf Urine Bacteria (None-Few) per hpf Hyaline Casts (None-Few) per lpf Urine Opiates Screen (Dwibbz=264) ng/mL Ur Barbiturates Screen (Yutjyf=235) ng/mL Ur Phencyclidine Scrn (Cutoff=25) ng/mL Ur Amphetamines Screen (Ufqfls=5010) ng/mL U Benzodiazepines Scrn (Dwadtn=967) ng/mL Urine Cocaine Screen (Cutoff= 300) ng/mL U Marijuana (THC) Screen (Cutoff = 50) ng/mL Chlamy pneumoniae PCR Not Detected (Not Detect) Adenovirus (PCR) Not Detected (Not Detect) B. pertussis DNA (PCR) Not Detected (Not Detect) Coronavirus OC43 (PCR) DETECTED A (Not Detect) Coronavirus HKU1 (PCR) Not Detected (Not Detect) Coronavirus 229E (PCR) Not Detected (Not Detect) Coronavirus NL63 (PCR) Not Detected (Not Detect) Human Metapneumovirus Not Detected (Not Detect) Influenza A (H1) PCR Not Detected (Not Detect) Influ A (H1N1/09) PCR Not Detected (Not Detect) Influenza A (H3) PCR Not Detected (Not Detect) Influenza A Untype (PCR) Not Detected (Not Detect) Influenza Type B (PCR) Not Detected (Not Detect) M.pneumoniae DNA (PCR) Not Detected (Not Detect) Parainfluenza 1 (PCR) Not Detected (Not Detect) Parainfluenza 2 (PCR) Not Detected (Not Detect) Parainfluenza 3 (PCR) Not Detected (Not Detect) Parainfluenza 4 (PCR) Not Detected (Not Detect) RSV (PCR) Not Detected (Not Detect) Entero/Rhino (PCR) Not Detected (Not Detect) 08/05/16 08/05/16 08/05/16 Range/Units 01:00 01:00 01:00 WBC (4.3-11.1) K/mcL RBC (3.82-4.97) M/mcL Hgb (11.5-15.4) g/dL Hct (35.3-44.9) % MCV (83.0-100.0) fL MCH (28.0-33.3) pg MCHC (31.6-35.5) g/dL RDW (11.5-14.5) % Plt Count (140-400) K/mcL MPV (9.4-12.4) fL Sodium 131 L (136-145) mEq/L Potassium 4.5 (3.5-4.5) mEq/L Chloride 100 (98-109) mEq/L Carbon Dioxide 21 (19-29) mEq/L BUN 18 (7-20) mg/dL Creatinine 1.28 H (0.57-1.11) mg/dL Est GFR ( Amer) 55 L (> 60) Est GFR (Non-Af Amer) 45 L (> 60) BUN/Creatinine Ratio 14 (6-26) Glucose 392 H (70-99) mg/dL POC Glucose (58-89) Calculated Osmolality 290 (280-300) Calcium 8.3 L (8.6-10.8) mg/dL Phosphorus 4.7 (2.3-4.7) mg/dL Magnesium 1.7 (1.6-2.6) mg/dL Troponin I 0.00 (0-0.03) ng/mL B-Natriuretic Peptide 55 (0-100) pg/mL Triglycerides 97 (< 150) mg/dL Cholesterol 196 (< 200) mg/dL LDL Cholesterol, Calc 120 H (0-99) mg/dL VLDL Cholesterol, Calc 19 (< 31) mg/dL HDL Cholesterol 57 (40-59) mg/dL Cholesterol/HDL Ratio 3.4 (0-4.9) Urine Color (Yellow) Urine Clarity (Clear) Urine pH (5.0-8.0) pH Units Ur Specific [place] (1.010-1.025) Urine Protein (Neg-Trace) mg/dL Urine Glucose (UA) (Normal) mg/dL Urine Ketones (Negative) mg/dL Urine Blood (Negative) Urine Nitrite (Negative) Urine Bilirubin (Negative) Urine Urobilinogen (Normal) mg/dL Ur Leukocyte Esterase (Negative) Urine Microscopic RBC (0-3) per hpf Urine Microscopic WBC (0-3) per hpf Ur Squamous Epith Cells (None-Few) per lpf Urine Bacteria (None-Few) per hpf Hyaline Casts (None-Few) per lpf Urine Opiates Screen (Ldvltu=444) ng/mL Ur Barbiturates Screen (Amvtca=521) ng/mL Ur Phencyclidine Scrn (Cutoff=25) ng/mL Ur Amphetamines Screen (Oerket=6391) ng/mL U Benzodiazepines Scrn (Hexzpv=970) ng/mL Urine Cocaine Screen (Cutoff= 300) ng/mL U Marijuana (THC) Screen (Cutoff = 50) ng/mL Chlamy pneumoniae PCR (Not Detect) Adenovirus (PCR) (Not Detect) B. pertussis DNA (PCR) (Not Detect) Coronavirus OC43 (PCR) (Not Detect) Coronavirus HKU1 (PCR) (Not Detect) Coronavirus 229E (PCR) (Not Detect) Coronavirus NL63 (PCR) (Not Detect) Human Metapneumovirus (Not Detect) Influenza A (H1) PCR (Not Detect) Influ A (H1N1/09) PCR (Not Detect) Influenza A (H3) PCR (Not Detect) Influenza A Untype (PCR) (Not Detect) Influenza Type B (PCR) (Not Detect) M.pneumoniae DNA (PCR) (Not Detect) Parainfluenza 1 (PCR) (Not Detect) Parainfluenza 2 (PCR) (Not Detect) Parainfluenza 3 (PCR) (Not Detect) Parainfluenza 4 (PCR) (Not Detect) RSV (PCR) (Not Detect) Entero/Rhino (PCR) (Not Detect) 08/05/16 08/05/16 08/05/16 Range/Units 01:00 01:00 04:10 WBC (4.3-11.1) K/mcL RBC (3.82-4.97) M/mcL Hgb (11.5-15.4) g/dL Hct (35.3-44.9) % MCV (83.0-100.0) fL MCH (28.0-33.3) pg MCHC (31.6-35.5) g/dL RDW (11.5-14.5) % Plt Count (140-400) K/mcL MPV (9.4-12.4) fL Sodium (136-145) mEq/L Potassium (3.5-4.5) mEq/L Chloride (98-109) mEq/L Carbon Dioxide (19-29) mEq/L BUN (7-20) mg/dL Creatinine (0.57-1.11) mg/dL Est GFR ( Amer) (> 60) Est GFR (Non-Af Amer) (> 60) BUN/Creatinine Ratio (6-26) Glucose (70-99) mg/dL POC Glucose (58-89) Calculated Osmolality (280-300) Calcium (8.6-10.8) mg/dL Phosphorus (2.3-4.7) mg/dL Magnesium (1.6-2.6) mg/dL Troponin I 0.01 (0-0.03) ng/mL B-Natriuretic Peptide (0-100) pg/mL Triglycerides (< 150) mg/dL Cholesterol (< 200) mg/dL LDL Cholesterol, Calc (0-99) mg/dL VLDL Cholesterol, Calc (< 31) mg/dL HDL Cholesterol (40-59) mg/dL Cholesterol/HDL Ratio (0-4.9) Urine Color Yellow (Yellow) Urine Clarity Clear (Clear) Urine pH 5.0 (5.0-8.0) pH Units Ur Specific [place] > 1.030 H (1.010-1.025) Urine Protein >=300 H (Neg-Trace) mg/dL Urine Glucose (UA) >=1000 H (Normal) mg/dL Urine Ketones Negative (Negative) mg/dL Urine Blood Trace H (Negative) Urine Nitrite Negative (Negative) Urine Bilirubin Small H (Negative) Urine Urobilinogen Normal (Normal) mg/dL Ur Leukocyte Esterase Negative (Negative) Urine Microscopic RBC 5-15 H (0-3) per hpf Urine Microscopic WBC 0-3 (0-3) per hpf Ur Squamous Epith Cells Many H (None-Few) per lpf Urine Bacteria None Seen (None-Few) per hpf Hyaline Casts None Seen (None-Few) per lpf Urine Opiates Screen Positive H (Owbaae=791) ng/mL Ur Barbiturates Screen Negative (Ssoeuq=333) ng/mL Ur Phencyclidine Scrn Negative (Cutoff=25) ng/mL Ur Amphetamines Screen Negative (Lowzqu=3248) ng/mL U Benzodiazepines Scrn Negative (Fnfikg=628) ng/mL Urine Cocaine Screen Negative (Cutoff= 300) ng/mL U Marijuana (THC) Screen Positive H (Cutoff = 50) ng/mL Chlamy pneumoniae PCR (Not Detect) Adenovirus (PCR) (Not Detect) B. pertussis DNA (PCR) (Not Detect) Coronavirus OC43 (PCR) (Not Detect) Coronavirus HKU1 (PCR) (Not Detect) Coronavirus 229E (PCR) (Not Detect) Coronavirus NL63 (PCR) (Not Detect) Human Metapneumovirus (Not Detect) Influenza A (H1) PCR (Not Detect) Influ A (H1N1/09) PCR (Not Detect) Influenza A (H3) PCR (Not Detect) Influenza A Untype (PCR) (Not Detect) Influenza Type B (PCR) (Not Detect) M.pneumoniae DNA (PCR) (Not Detect) Parainfluenza 1 (PCR) (Not Detect) Parainfluenza 2 (PCR) (Not Detect) Parainfluenza 3 (PCR) (Not Detect) Parainfluenza 4 (PCR) (Not Detect) RSV (PCR) (Not Detect) Entero/Rhino (PCR) (Not Detect) 08/05/16 Range/Units 14:40 WBC (4.3-11.1) K/mcL RBC (3.82-4.97) M/mcL Hgb (11.5-15.4) g/dL Hct (35.3-44.9) % MCV (83.0-100.0) fL MCH (28.0-33.3) pg MCHC (31.6-35.5) g/dL RDW (11.5-14.5) % Plt Count (140-400) K/mcL MPV (9.4-12.4) fL Sodium (136-145) mEq/L Potassium (3.5-4.5) mEq/L Chloride (98-109) mEq/L Carbon Dioxide (19-29) mEq/L BUN (7-20) mg/dL Creatinine (0.57-1.11) mg/dL Est GFR ( Amer) (> 60) Est GFR (Non-Af Amer) (> 60) BUN/Creatinine Ratio (6-26) Glucose (70-99) mg/dL POC Glucose (58-89) Calculated Osmolality (280-300) Calcium (8.6-10.8) mg/dL Phosphorus (2.3-4.7) mg/dL Magnesium (1.6-2.6) mg/dL Troponin I 0.01 (0-0.03) ng/mL B-Natriuretic Peptide (0-100) pg/mL Triglycerides (< 150) mg/dL Cholesterol (< 200) mg/dL LDL Cholesterol, Calc (0-99) mg/dL VLDL Cholesterol, Calc (< 31) mg/dL HDL Cholesterol (40-59) mg/dL Cholesterol/HDL Ratio (0-4.9) Urine Color (Yellow) Urine Clarity (Clear) Urine pH (5.0-8.0) pH Units Ur Specific [place] (1.010-1.025) Urine Protein (Neg-Trace) mg/dL Urine Glucose (UA) (Normal) mg/dL Urine Ketones (Negative) mg/dL Urine Blood (Negative) Urine Nitrite (Negative) Urine Bilirubin (Negative) Urine Urobilinogen (Normal) mg/dL Ur Leukocyte Esterase (Negative) Urine Microscopic RBC (0-3) per hpf Urine Microscopic WBC (0-3) per hpf Ur Squamous Epith Cells (None-Few) per lpf Urine Bacteria (None-Few) per hpf Hyaline Casts (None-Few) per lpf Urine Opiates Screen (Nxyduk=816) ng/mL Ur Barbiturates Screen (Ukukkl=186) ng/mL Ur Phencyclidine Scrn (Cutoff=25) ng/mL Ur Amphetamines Screen (Pyswhf=2905) ng/mL U Benzodiazepines Scrn (Vxnjmy=066) ng/mL Urine Cocaine Screen (Cutoff= 300) ng/mL U Marijuana (THC) Screen (Cutoff = 50) ng/mL Chlamy pneumoniae PCR (Not Detect) Adenovirus (PCR) (Not Detect) B. pertussis DNA (PCR) (Not Detect) Coronavirus OC43 (PCR) (Not Detect) Coronavirus HKU1 (PCR) (Not Detect) Coronavirus 229E (PCR) (Not Detect) Coronavirus NL63 (PCR) (Not Detect) Human Metapneumovirus (Not Detect) Influenza A (H1) PCR (Not Detect) Influ A (H1N1/09) PCR (Not Detect) Influenza A (H3) PCR (Not Detect) Influenza A Untype (PCR) (Not Detect) Influenza Type B (PCR) (Not Detect) M.pneumoniae DNA (PCR) (Not Detect) Parainfluenza 1 (PCR) (Not Detect) Parainfluenza 2 (PCR) (Not Detect) Parainfluenza 3 (PCR) (Not Detect) Parainfluenza 4 (PCR) (Not Detect) RSV (PCR) (Not Detect) Entero/Rhino (PCR) (Not Detect)
--- NOTE | 2016-08-05 16:23 | Electrocardiograph Report ---
[facility] Test Date: 2016-08-04 Pat Name: Yeny Boyd Department: 104 Room: 3B38 Gender: F Client Advisor: ESTEVAN : [id number] Requested By: Jesus Deleon Order Number: [id number] Reading MD: Janiya Benitez Measurements Intervals Printer Rate: 101 P: 56 OH: 129 QRS: 22 QRSD: 104 T: 34 QT: 325 QTc: 383 Interpretive Statements SINUS TACHYCARDIA ABNORMAL RHYTHM ECG Electronically Signed On 08-05-16 16:17:56 EST by Janiya Benitez
[2016-08-05] MEDS: *HR* Heparin 5,000 UNIT/ML VIAL SQ SCH (20:19)
[2016-08-05] MEDS: 0.9 % Sodium Chloride 1,000 ML IVC SCH (20:33)
[2016-08-05] MEDS ORDERED: Insulin LISPRO 300 UNITS/3 ML VIAL SQ SCH (21:00)
[2016-08-05] MEDS ORDERED: Dextromethorphan Polistrx(12h) 30 MG/5 ML UDC PO PRN (21:00)
[2016-08-05] MEDS ORDERED: methylPREDNISolone 125 MG/2 ML VIAL IVP ONE (23:00)
[2016-08-06] MEDS: Ipratropium/Albuterol Neb 3 ML IH SCH ×2 (03:26→11:07)
[2016-08-06] MEDS: *HR* Heparin 5,000 UNIT/ML VIAL SQ SCH (06:28)
[2016-08-06 07:03] VITALS: BP 140/82
[2016-08-06] MEDS ORDERED: Insulin LISPRO 300 UNITS/3 ML VIAL SQ SCH ×3 (07:32)
[2016-08-06] MEDS ORDERED: Insulin DETEMIR 100 UNIT/ML X5UNITS SQ SCH (07:32)
[2016-08-06] MEDS: Nicotine 21 MG PATCH.TD24 TD SCH (08:33)
[2016-08-06] MEDS: predniSONE 20 MG TABLET PO SCH (08:34)
[2016-08-06] MEDS: Divalproex (24 HR) 500 MG TABLET PO SCH (08:35)
[2016-08-06] MEDS: *HR* OxyCODONE Immed Rel 5 MG TABLET PO PRN (08:35)
[2016-08-06] MEDS: Famotidine 20 MG TABLET PO SCH (08:35)
[2016-08-06] MEDS: Azithromycin 500 MG in D5% in Water 250 ML IVPB SCH (08:35)
[2016-08-06] MEDS: Metoprolol XL (24 HR) Succ 50 MG TAB.ER.24H PO SCH (08:35)
--- NOTE | 2016-08-06 10:33 | Discharge Summary ---
Date of Encounter: 08/06/16 Time of Encounter: 08:50 - Discharge Diagnosis (1) Acute and chronic respiratory failure with hypoxia Priority: Primary Status: Acute (2) Acute bronchitis and bronchiolitis Priority: Secondary Status: Acute (3) Acute exacerbation of chronic obstructive airways disease Priority: Secondary Status: Acute (4) Tobacco abuse Priority: Secondary Status: Chronic (5) Diabetes type 2, uncontrolled Priority: Secondary Status: Chronic Qualifiers: Diabetes mellitus complication status: with kidney complications Diabetes mellitus complication detail: with chronic kidney disease Diabetes mellitus penitentiary insulin use: with penitentiary use Chronic kidney disease stage: stage 2 (mild) Qualified Code(s): E11.22 - Type 2 diabetes mellitus with diabetic chronic kidney disease; E11.65 - Type 2 diabetes mellitus with hyperglycemia; N18.2 - Chronic kidney disease, stage 2 (mild); Z79.4 - termite renewal inspector (current) use of insulin - Discharge Medications Prescriptions: Benzonatate [Tessalon] 200 mg PO TID PRN #30 capsule PRN Reason: Cough Levofloxacin 500 mg PO DAILY #4 tablet PredniSONE 10 mg PO DAILY 6 Days Home Medications: Albuterol Sulfate [Albuterol Inhaler] 2 puff IH Q4HR PRN 03/09/15 [History] Budesonide/Formoterol 160/4.5 [Symbicort] 2 puff IH BID 03/09/15 [History] Albuterol Neb [AccuNeb] 1 vial IH 6XD PRN 11/30/15 [History] Hydroxyzine HCl 25 mg PO Q6H PRN 11/30/15 [History] Montelukast [Singulair] 10 mg PO DAILY 11/30/15 [History] Nicotine Patch [Nicoderm] 21 mg TD DAILY 03/31/16 [History] Oxybutynin [Ditropan] 5 mg PO BID 03/31/16 [History] Divalproex (24 HR) [Depakote ER (24 HR)] 500 mg PO DAILY #30 tab.er.24h [Rx] HYDROcodone/Acet 5/325 mg [[place] 5-325 mg] 1 tab PO Q6HR PRN #10 tablet [Rx] Insulin DETEMIR [Levemir Flextouch] 30 unit SQ BID #100 mls 07/09/16 [Rx] Insulin LISPRO [Humalog Kwikpen U-100] 10 unit SQ TIDAC #100 mls 07/09/16 [Rx] Linagliptin [Tradjenta] 5 mg PO DAILY #30 tablet 07/09/16 [Rx] Lisinopril [Zestril] 10 mg PO DAILY #30 tablet 07/09/16 [Rx] Metoclopramide [Reglan] 10 mg PO QIDAC #120 tablet 07/09/16 [Rx] Metoprolol XL (24 HR) Succ [Toprol Xl] 50 mg PO DAILY #30 tab.er.24h 07/09/16 [ Rx] Venlafaxine [Effexor] 37.5 mg PO BID #60 tablet 07/09/16 [Rx] Benzonatate [Tessalon] 200 mg PO TID PRN #30 capsule 08/06/16 [Rx] Levofloxacin 500 mg PO DAILY #4 tablet 08/06/16 [Rx] PredniSONE 10 mg PO DAILY 6 Days 08/06/16 [Rx] Allergies/Adverse Reactions: Allergies No Known Allergies Allergy (Verified 07/07/16 17:57) Date of admission: 08/04/16 21:34 Primary care physician: PCP NO Consults: 08/04/16 22:01 Consult to Nurse Navigator [CONS] Routine Comment: 08/04/16 22:10 Consult to Head Chef [CONS] Routine Comment: Discharging clinician: Soha Middleton Anticipated date of discharge: 08/06/16 - Patient Status Disposition: Home, Self-Care Condition: Good Functional capacity at discharge: independent ambulation Overall status at discharge: patient is progressing back to baseline - Discharge Instructions Instructions: Diabetes Mellitus Type 2 in Adults (DC) Follow Up With: NO,PCP [Primary Care Provider] - Additional Instructions: Follow-up with PCP in one week - Diet and Activity Activity: wear oxygen at all times Hospital course: Ms. Boyd is a 45 year old female with history of morbid obesity, COPD, diabetes mellitus type 2 who was observed in the hospital with acute episode of shortness of breath and respiratory failure. Patient was diagnosed with acute COPD exacerbation and respiratory failure due to possible underlying acute bronchitis and bronchiolitis. She was treated for this with intravenous steroids, nebulizer treatments and also received empiric antibiotics. The symptoms have significantly improved and patient is currently stable for discharge to a tapering course of steroids and short course of antibiotic. Patient has a history of diabetes mellitus that is poorly controlled. She received insulin during his stay here. She is advised to closely follow up with her primary care provider to control her diabetes better. - Time Spent with Patient Total time spent providing and/or coordinating discharge services: Less than 30 minutes (25) - Constitutional Vitals: Temp Pulse Resp BP Pulse Ox 97.6 F 84 19 140/82 95 08/06/16 06:57 08/06/16 06:57 08/06/16 06:57 08/06/16 06:57 08/06/16 06:57 General appearance: Present: cooperative, mild distress, A&O X 3, morbidly obese , answers questions appropriately - Neck Neck exam general surgery: Present: supple, trachea midline. Absent: lymphadenopathy - Respiratory Respiratory exam: Present: prolonged expiratory phase. Absent: accessory muscle use, rales, rhonchi, wheezes Additional comments: improved aeration bilaterally - GI/Abdominal GI/Abdominal exam: Present: normal bowel sounds, soft, no peritoneal signs. Absent: distended, tenderness - Attending Attestation This document has been at least partially created by [employer] recognition technology by Dr. Middleton. Errors in grammar, wording or other phrases may exist. If errors are found after the documentation is signed, they will be addressed individually in the addendum section of this document when appropriate.
== END 2016-08-06 12:50 | disposition home or self-care (01) ==
LOC: 3BNU 14:58 → EMEROO 14:58 → SUATTDRO 21:34 → 3BNU 21:59
PROVIDERS: ADMIT Nurse Practitioner Family; ATTEND Internal Medicine

== ENCOUNTER 2017-01-20 00:52 | Inpatient (IN) ==
--- NOTE | 2017-01-20 01:02 | Emergency Department Note ---
Disposition Clinical Impression: Shortness of breath, Bilateral leg pain, Pedal edema, Proteinuria, Unable to ambulate Leukocytosis Qualifiers: Leukocytosis type: unspecified Qualified Code(s): D72.829 - Elevated white blood cell count, unspecified Disposition: Admitted As Inpatient Condition: Good Time of Disposition: 04:48 SOB HPI - General Chief Complaint: ED Shortness of Breath/Dyspnea Stated Complaint: letty states filling up with fluid Time Seen by Provider: 01/20/17 01:00 Source: patient Mode of arrival: ambulatory Limitations: no limitations Nursing Notes Reviewed: Yes Vital Signs Reviewed: Yes - History of Present Illness Patient is a 46-year-old female with past medical history of CHF, COPD, diabetes. She presents today due to multiple complaints. She feels short of breath, feels that she is "taking on fluid. "She also has increased pedal edema and says that the pain in her bilateral lower extremities is makes it unbearable to walk. She also says that she "has pain everywhere. "She also complains of burning with urination. Denies chest pain, fevers, diarrhea, constipation. - Related Data Home Medications Medication Instructions Recorded Confirmed Albuterol Sulfate [Albuterol 2 puff IH Q4HR PRN 03/09/15 01/11/17 Inhaler] Budesonide/Formoterol 160/4.5 2 puff IH BID 03/09/15 01/11/17 [Symbicort] Fluticasone/Vilanterol [Breo 1 puff IH BID 01/11/17 01/11/17 Ellipta 100-25 Mcg INH] Oxygen 2 l .ROUTE AD 01/11/17 01/11/17 Previous Rx's Medication Instructions Recorded Insulin LISPRO [Humalog Kwikpen 10 unit SQ TIDAC #100 mls 07/09/16 U-100] Lisinopril [Zestril] 10 mg PO DAILY #30 tablet 07/09/16 Albuterol Neb [AccuNeb] 1 vial IH 6XD PRN #10 inhsol 01/15/17 Aspirin 81 mg PO DAILY #30 tab.chew 01/15/17 Atorvastatin [Lipitor] 80 mg PO HS #60 tablet 01/15/17 Diltiazem CD (24hr) [Cardizem CD] 120 mg PO DAILY #60 cap.er.24h 01/15/17 HYDROcodone/Acet 5/325 mg [[place] 1 tab PO Q6H PRN #10 tab 01/15/17 5-325 mg] Insulin Glargine,Hum.rec.anlog 60 unit SQ DAILY #10 01/15/17 [Lantus Solostar] Nicotine Patch [Nicoderm] 21 mg TD DAILY #30 patch.td24 01/15/17 Nitroglycerin 0.4 mg SL Q5MIN PRN #60 tab.subl 01/15/17 Nystatin POWDER [Nystop] 1 appl TP TID #1 bottle 01/15/17 Omeprazole [PriLOSEC] 20 mg PO DAILY #60 capsule.dr 01/15/17 levoFLOXacin [Levaquin] 750 mg PO DAILY #3 tablet 01/15/17 predniSONE [Prednisone] 50 mg PO DAILY #3 tablet 01/15/17 Allergies Allergy/AdvReac Type Severity Reaction Status Date / Time No Known Allergies Allergy Verified 01/20/17 01:06 All systems ED: reviewed and negative except as stated. Constitutional: Denies: fever Cardiovascular: Reports: dyspnea on exertion. Denies: chest pain Respiratory: Reports: dyspnea, wheezes Gastrointestinal: Denies: nausea, vomiting, diarrhea, constipation Genitourinary: Reports: dysuria Past Medical History - Past Medical History Attestation: Yes The following information was validated with the patient. 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 - Social History Smoking Status: Current every day smoker Smokeless Tobacco Status: No Alcohol use: Reports: none Drug use: Reports: marijuana Physical Exam - General Limitations: no limitations General appearance: alert - Head Head exam: atraumatic, normocephalic, normal inspection - Eye Eye exam: Present: normal appearance, PERRL, EOMI - ENT ENT exam: normal exam, normal oropharynx, mucous membranes moist - Neck Neck exam: Present: normal inspection, full ROM, trachea midline - Chest Chest inspection: Present: normal inspection, symmetric chest wall rise - Respiratory Respiratory exam: Present: wheezes (Wheezes in bilateral lower lobes), accessory muscle use (Labored breathing with increased accessory muscle use), other (Conversationally dyspneic) - Cardiovascular Cardiovascular exam: Present: regular rate, normal rhythm, normal heart sounds - Abdominal Exam Abdominal exam: Present: soft, Non-Tender. Absent: tenderness, distention, guarding, rebound, rigidity - Extremities Exam Extremities exam: Present: full ROM, pedal edema (bilateral LE pitting edema) - Neurological Exam Neurological exam: Present: alert, oriented X3 - Psychiatric Psychiatric exam: Present: normal affect, normal mood - Skin Skin exam: Present: warm, dry, intact, normal color Course Course Narrative: Patient was conversationally dyspneic on exam. Satting 97% on room air. She had significant wheezes in bilateral lower lobes and pitting edema bilateral lower extremities. CBC shows elevation of white blood cell count of 30.4. Chest x-ray negative. BMP shows mild elevation in creatinine. UA negative for UTI but positive for proteinuria. Patient was given duonebs 3 and solumedrol for wheezing. Patient will be admitted for shortness of breath, difficulty with ambulation, leukocytosis. Chest X-Ray 01/20/17 01:01 IMPRESSION: No focal airspace disease. D/ / Adriel Hoskins MD / Adriel Hoskins MD Interpreting Provider: Adriel Hoskins MD Vital Signs Temperature 98.2 F 01/20/17 01:06 Pulse Rate 100 01/20/17 01:06 Respiratory Rate 18 01/20/17 01:06 Blood Pressure 155/91 01/20/17 01:06 O2 Sat by Pulse Oximetry 97 01/20/17 01:06 Temperature 98.2 F 01/20/17 01:06 Pulse Rate 92 01/20/17 03:14 Respiratory Rate 18 01/20/17 04:12 Blood Pressure 144/86 01/20/17 04:12 O2 Sat by Pulse Oximetry 98 01/20/17 03:14 Oxygen Delivery Oxygen Delivery Room Air Shortness of Breath/Dyspnea - MDM Narrative Medical decision making narrative: Patient was conversationally dyspneic on exam. Satting 97% on room air. She had significant wheezes in bilateral lower lobes and pitting edema bilateral lower extremities. CBC shows elevation of white blood cell count of 30.4. Chest x-ray negative. BMP shows mild elevation in creatinine. UA negative for UTI but positive for proteinuria. Patient was given duonebs 3 and solumedrol for wheezing. Patient will be admitted for shortness of breath, difficulty with ambulation, leukocytosis. - Medical Records Medical records reviewed: Yes I reviewed the patient's medical records. - Lab Data Lab results reviewed: Yes I reviewed the patient's lab results. Result diagrams: 01/20/17 01:45 01/20/17 01:45 Lab Results 01/20/17 01/20/17 01/20/17 Range/Units 01:45 01:45 01:45 WBC 30.4 H* D (4.3-11.1) K/mcL RBC 3.99 (3.82-4.97) M/mcL Hgb 11.5 (11.5-15.4) g/dL Hct 35.6 (35.3-44.9) % MCV 89.2 (83.0-100.0) fL MCH 28.8 (28.0-33.3) pg MCHC 32.3 (31.6-35.5) g/dL RDW 17.0 H (11.5-14.5) % Plt Count 311 (140-400) K/mcL MPV 10.6 (9.4-12.4) fL Seg Neutrophils % 68.0 % Band Neutrophils % 2.0 (0-4) % Lymphocytes % 18.0 % Monocytes % 2.0 % Eosinophils % 2.0 % Metamyelocytes % 2.0 H (0) % Myelocytes % 6.0 H (0) % Neutrophils # 21.3 H (1.6-8.9) K/mcL Lymphocytes # 5.5 H (0.6-4.6) K/mcL Monocytes # 0.6 (0.0-1.3) K/mcL Eosinophils # 0.6 (0.0-0.6) K/mcL Nucleated RBCs/100 WBC 0.2 H (0) /100 WBC Reactive Lymphocytes Present A (Not Present) Platelet Estimate Normal (Normal) Large Platelets Present A (Not Present) Anisocytosis 1+ A (Not Present) Microcytosis Present A (Not Present) Macrocytosis Present A (Not Present) Sodium 138 (136-145) mEq/L Potassium 3.4 L (3.5-4.5) mEq/L Chloride 107 (98-109) mEq/L Carbon Dioxide 23 (19-29) mEq/L BUN 22 H (7-20) mg/dL Creatinine 1.12 H (0.57-1.11) mg/dL Est GFR ( Amer) > 60 (> 60) Est GFR (Non-Af Amer) 53 L (> 60) BUN/Creatinine Ratio 20 (6-26) Glucose 182 H (70-99) mg/dL Calculated Osmolality 294 (280-300) Calcium 8.4 L (8.6-10.8) mg/dL Troponin I 0.01 (0-0.03) ng/mL B-Natriuretic Peptide (0-100) pg/mL Urine Color (Yellow) Urine Clarity (Clear) Urine pH (5.0-8.0) pH Units Ur Specific [place] (1.010-1.025) Urine Protein (Neg-Trace) mg/dL Urine Glucose (UA) (Normal) mg/dL Urine Ketones (Negative) mg/dL Urine Blood (Negative) Urine Nitrite (Negative) Urine Bilirubin (Negative) Urine Urobilinogen (Normal) mg/dL Ur Leukocyte Esterase (Negative) Urine Microscopic RBC (0-3) per hpf Urine Microscopic WBC (0-3) per hpf Ur Squamous Epith Cells (None-Few) per lpf Urine Bacteria (None-Few) per hpf Hyaline Casts (None-Few) per lpf Ur Culture Indicated? (NO) 01/20/17 01/20/17 Range/Units 01:45 02:00 WBC (4.3-11.1) K/mcL RBC (3.82-4.97) M/mcL Hgb (11.5-15.4) g/dL Hct (35.3-44.9) % MCV (83.0-100.0) fL MCH (28.0-33.3) pg MCHC (31.6-35.5) g/dL RDW (11.5-14.5) % Plt Count (140-400) K/mcL MPV (9.4-12.4) fL Seg Neutrophils % % Band Neutrophils % (0-4) % Lymphocytes % % Monocytes % % Eosinophils % % Metamyelocytes % (0) % Myelocytes % (0) % Neutrophils # (1.6-8.9) K/mcL Lymphocytes # (0.6-4.6) K/mcL Monocytes # (0.0-1.3) K/mcL Eosinophils # (0.0-0.6) K/mcL Nucleated RBCs/100 WBC (0) /100 WBC Reactive Lymphocytes (Not Present) Platelet Estimate (Normal) Large Platelets (Not Present) Anisocytosis (Not Present) Microcytosis (Not Present) Macrocytosis (Not Present) Sodium (136-145) mEq/L Potassium (3.5-4.5) mEq/L Chloride (98-109) mEq/L Carbon Dioxide (19-29) mEq/L BUN (7-20) mg/dL Creatinine (0.57-1.11) mg/dL Est GFR ( Amer) (> 60) Est GFR (Non-Af Amer) (> 60) BUN/Creatinine Ratio (6-26) Glucose (70-99) mg/dL Calculated Osmolality (280-300) Calcium (8.6-10.8) mg/dL Troponin I (0-0.03) ng/mL B-Natriuretic Peptide 27 (0-100) pg/mL Urine Color Yellow (Yellow) Urine Clarity Clear (Clear) Urine pH 6.0 (5.0-8.0) pH Units Ur Specific [place] 1.029 H (1.010-1.025) Urine Protein >=300 H (Neg-Trace) mg/dL Urine Glucose (UA) Normal (Normal) mg/dL Urine Ketones Negative (Negative) mg/dL Urine Blood Moderate H (Negative) Urine Nitrite Negative (Negative) Urine Bilirubin Negative (Negative) Urine Urobilinogen Normal (Normal) mg/dL Ur Leukocyte Esterase Negative (Negative) Urine Microscopic RBC 0-3 (0-3) per hpf Urine Microscopic WBC 3-5 H (0-3) per hpf Ur Squamous Epith Cells Many H (None-Few) per lpf Urine Bacteria Few (None-Few) per hpf Hyaline Casts None Seen (None-Few) per lpf Ur Culture Indicated? NO (NO) - Radiology Data Radiology results reviewed: Yes I reviewed the patient's radiology results. Chest X-Ray 01/20/17 01:01 IMPRESSION: No focal airspace disease. D/ / Adriel Hoskins MD / Adriel Hoskins MD Interpreting Provider: Adriel Hoskins MD - EKG Data EKG attestation: Yes I reviewed and interpreted this EKG. EKG results narrative: 01/20/2017 at 01:15. Sinus tachycardia. Rate 101. OK 120. QRS 105. QTc 377. Normal axis. No acute ST elevation or depression. S.B.A.R. - S.B.A.R. Situation: Demographics, MOA Background: Presenting Complaint, Relevant PMH, Meds, & Allergies Assessment: Vital Signs, Course and respsone to treatment, Exam Concerns, Patient/Family Expectation, Pertinant Lab Results Recommendation: Barrier(s) to disposition, Recommendation based on pending studies, treatments, or consults S.B.A.R. Report Given to: Dr. Beck Attestation Statement - Attestation Attestation: I, Juan Carreno MD, personally evaluated this patient and discussed their management with the resident physician. I reviewed the resident's note and agree with the documented findings, medical decision making, and plan of care. 46-year-old morbidly obese female with history of COPD and CHF presents to the emergency department complaining of increased swelling of her lower extremities over the past week. She also complains of increased shortness of breath. Difficulty ambulating due to this pain and swelling in her lower extremities. She was just recently in the hospital for shortness of breath. On examination patient is a well-developed morbidly obese female in no acute distress. She is alert and oriented 3. There is no cyanosis or diaphoresis. Breath sounds are decreased bilaterally with diffuse bilateral inspiratory and expiratory wheezes. Heart regular rate and rhythm. Abdomen soft and nontender with normal bowel sounds. 2+ pitting edema of the lower extremities bilaterally. Labs reviewed. WBC 30. Chest x-ray negative. The hospitalist, Dr. Beck, was consulted and accepted admission of the patient.
[2017-01-20 01:55] LABS: Hematocrit 35.6 % (35.3-44.9); Hemoglobin 11.5 g/dL (11.5-15.4); Mean Corpuscular HGB Conc 32.3 g/dL (31.6-35.5); Mean Corpuscular Hemoglobin 28.8 pg (28.0-33.3); Mean Corpuscular Volume 89.2 fL (83.0-100.0); Mean Platelet Volume 10.6 fL (9.4-12.4); Nucleated Red Blood Cells 0.2 /100 WBC (0); Platelet Count 311 K/mcL (140-400); Red Blood Count 3.99 M/mcL (3.82-4.97)
[2017-01-20 02:07] LABS: BUN/Creatinine Ratio 20 (6-26); Blood Urea Nitrogen 22 mg/dL (7-20); Calcium 8.4 mg/dL (8.6-10.8); Carbon Dioxide 23 mEq/L (19-29); Chloride 107 mEq/L (98-109); Glucose 182 mg/dL (70-99); Osmolality,Calculated 294 (280-300); Potassium 3.4 mEq/L (3.5-4.5); Sodium 138 mEq/L (136-145); eGFR For African Americans > 60 (> 60); eGFR For Non-African Americans 53 (> 60)
[2017-01-20 02:09] LABS: Bilirubin,Urine Negative (Negative); Blood,Urine Moderate (Negative); Clarity,Urine Clear (Clear); Color,Urine Yellow (Yellow); Glucose,Urine (UA) Normal (Normal); Ketones,Urine Negative (Negative); Leukocyte Esterase,Urine Negative (Negative); Nitrite,Urine Negative (Negative); Protein,Urine >=300 mg/dL (Neg-Trace); Specific Gravity,Urine 1.029 (1.010-1.025); Urobilinogen,Urine Normal (Normal)
[2017-01-20 02:12] LABS: Bacteria,Urine Few per hpf (None-Few); Hyaline Casts,Urine None Seen per lpf (None-Few); RBC,Urine 0-3 per hpf (0-3); Squamous Epithelial Cell,Urine Many per lpf (None-Few)
[2017-01-20 02:31] LABS: Anisocytosis 1+ (Not Present); Eosinophils # 0.6 K/mcL (0.0-0.6); Lymphocytes # 5.5 K/mcL (0.6-4.6); Monocytes # 0.6 K/mcL (0.0-1.3); Neutrophils # 21.3 K/mcL (1.6-8.9)
[2017-01-20 02:32] LABS: Large Platelets Present (Not Present); Macrocytosis Present (Not Present); Microcytosis Present (Not Present); Platelet Estimate Normal (Normal); Reactive Lymphocytes Present (Not Present)
[2017-01-20] MEDS ORDERED: Ipratropium/Albuterol Neb 3 ML IH ONE (02:37)
[2017-01-20] MEDS ORDERED: methylPREDNISolone 125 MG/2 ML VIAL IVP ONE (02:37)
[2017-01-20] MEDS ORDERED: *HR* HYDROmorphone (PF) 1 MG/ML SYRINGE IVP ONE (02:54)
[2017-01-20] MEDS ORDERED: Ondansetron 4 MG/2 ML VIAL IVP ONE (03:16)
--- NOTE | 2017-01-20 04:37 | Internal Med History&Physical ---
<Jp Wakefield - Last Filed: 01/20/17 05:07> Date of Encounter: 01/20/17 Time of Encounter: 04:30 Assessment and Plan (1) Acute exacerbation of chronic obstructive pulmonary disease (COPD) Current visit: No Status: Acute Despite recently being discharged with COPD, patient still has cough and wheezing without obvious consolidation on CXR Start on Z-Truman for 5 days and support with supplemental oxygen, steroids, and breathing treatments May change antibiotic regimen if indicated by blood cultures results Restart patient on night time CPAP as she has been without a machine for over a year despite having VITO (2) Leukocytosis Current visit: Yes Status: Chronic Likely reactive given that she has received steroids recently since last discharged a week ago, however she again requires steroids during this visit due to COPD exacerbation and is currently wheezing There is no obvious source of infection other than possible bronchitis, which we will treat with Z-Truman Blood cultures and peripheral smear was collected in ED and sent to pathology; will await results Qualifiers: Qualified Code(s): D72.829 - Elevated white blood cell count, unspecified (3) Pedal edema Current visit: Yes Status: Acute Patient recently had an echo within 2 weeks ago which was normal - EF 55% without evidence of right ventricular or diastolic dysfunction Suspect edema secondary to low oncotic pressure from proteinuria due to uncontrolled diabetes She is Lasix naive, so will start on 40 IV Lasix daily and fluid restrict at 1.5 L (4) Insulin dependent diabetes mellitus Current visit: Yes Status: Chronic Will half her basal dose of Levemir at 30 units at night Start on low dose SSI ACHS accuchecks per protocol A1c checked within a month was 8.2 (5) VITO (obstructive sleep apnea) Current visit: No Status: Chronic She has been without a machine for over a year as it has broken Will start on CPAP at night while she is admitted for her sleep apnea business services officer consulted, appreciate assistance in reordering device (6) Hypertension Current visit: No Status: Chronic Blood pressures stable since admission Will continue home Lisinopril and Cardizem Qualifiers: Hypertension type: essential hypertension Qualified Code(s): I10 - Essential (primary) hypertension (7) DVT prophylaxis Current visit: No Status: Acute Heparin 5000 units BID Internal Medicine - H&P: HPI Chief complaint: shortness of breath, swelling Admitted From: Home Plans for Post Hospital Care: Transfer Long-Term Facility History of present illness: Ms. Boyd is a 46 year old female who presents emergency department with shortness of breath and swelling of the lower extremity. She states that her breathing never fully resolved since she was discharged last week with a COPD exacerbation from [place]. She is given steroids, Levaquin, breathing treatments at that time and finished them as directed. She states that the swelling in her legs are bilateral and started just 2 days ago. She also reports severe pain in both legs, which is worse than her usual neuropathic pain secondary to diabetes. Patient also complains of non-productive cough and chest pain that has been present since last admission. This was relieved with nitro. She also has been having significant nausea and vomiting as well as abdominal pain. Of note, patient has been diagnosed with sleep apnea and is supposed to use a CPAP nightly, but has been without the machine for over a year and is in the process of obtaining a new one. Patient lives with her fiancee and daughter, and her mobility has been limited recently due to the breathing and leg pain. She uses 2 L of oxygen intermittently at night. Past Med Surg Social Fam HX - Past Medical History Medical history: arthritis, asthma, CHF, COPD, coronary artery disease, DVT, diabetes, fibromyalgia, GERD, hyperlipidemia, hypertension, migraine, osteoporosis, pulmonary embolus, renal disease, syncope, other Psychiatric history: anxiety, bipolar, depression, other - Past Surgical History Surgical History: , cholecystectomy, other - Social History Smoking Status: Current every day smoker Smokeless Tobacco Status: No Alcohol use: none Drug use: marijuana - Family History Father Living Status: Hx Family Cancer: Yes (testicular, brain) Mother Family Member Ethnicity: Non- Living Status: Hx Family Cardiac Disorders: Yes (RI) Hx Family Endocrine Disorder: Yes (DM) Brother Living Status: Still Living Hx Family Cardiac Disorders: Yes (RI, CAD, HTN, HLD) Internal Medicine - H&P: Meds Albuterol Sulfate [Albuterol Inhaler] 2 puff IH Q4HR PRN 03/09/15 [History] Budesonide/Formoterol 160/4.5 [Symbicort] 2 puff IH BID 03/09/15 [History] Insulin LISPRO [Humalog Kwikpen U-100] 10 unit SQ TIDAC #100 mls 07/09/16 [Rx] Lisinopril [Zestril] 10 mg PO DAILY #30 tablet 07/09/16 [Rx] Fluticasone/Vilanterol [Breo Ellipta 100-25 Mcg INH] 1 puff IH BID 01/11/17 [ History] Oxygen 2 l .ROUTE AD 01/11/17 [History] Albuterol Neb [AccuNeb] 1 vial IH 6XD PRN #10 inhsol 01/15/17 [Rx] Aspirin 81 mg PO DAILY #30 tab.chew 01/15/17 [Rx] Atorvastatin [Lipitor] 80 mg PO HS #60 tablet 01/15/17 [Rx] Diltiazem CD (24hr) [Cardizem CD] 120 mg PO DAILY #60 cap.er.24h 01/15/17 [Rx] HYDROcodone/Acet 5/325 mg [[place] 5-325 mg] 1 tab PO Q6H PRN #10 tab 01/15/17 [Rx ] Insulin Glargine,Hum.rec.anlog [Lantus Solostar] 60 unit SQ DAILY #10 01/15/17 [Rx] Nicotine Patch [Nicoderm] 21 mg TD DAILY #30 patch.td24 01/15/17 [Rx] Nitroglycerin 0.4 mg SL Q5MIN PRN #60 tab.subl 01/15/17 [Rx] Nystatin POWDER [Nystop] 1 appl TP TID #1 bottle 01/15/17 [Rx] Omeprazole [PriLOSEC] 20 mg PO DAILY #60 capsule. 01/15/17 [Rx] Allergies No Known Allergies Allergy (Verified 01/20/17 01:06) All Systems PM: A 10-system review of systems was performed and is negative for pertinent findings except as documented above in the HPI. - Constitutional Constitutional: chills, weakness, no fever(s), no night sweats - EENT Eyes: no change in vision, no discharge, no pain, no photophobia Ears: no ear discharge, no ear pain, no tinnitus Nose, mouth and throat: no dysphagia, no nasal discharge, no neck pain, no sore throat - Cardiovascular Cardiovascular ROS IM: chest pain, dyspnea, dyspnea on exertion, edema, no diaphoresis, no lightheadedness, no palpitations, no syncope - Respiratory Respiratory: cough, no dyspnea, no wheezing, no excessive phlegm production - Gastrointestinal Gastrointestinal: abdominal pain, diarrhea, nausea, vomiting, no hematemesis, no hematochezia, no melena - Genitourinary Genitourinary: dysuria, no change in urinary stream, no flank pain, no hematuria - Musculoskeletal Musculoskeletal ROS IM: no numbness, no tingling - Integumentary Integumentary IM: no rash, no unusual bruising - Neurological Neurological ROS: no confusion, no convulsions, no focal weakness, no numbness, no tingling, no tremor(s) - Hematologic/Lymphatic Hematologic/Lymphatic: easy bruising - Constitutional Vitals: Temp Pulse Resp BP Pulse Ox 98.2 F 92 18 144/86 98 01/20/17 01:06 01/20/17 03:14 01/20/17 04:12 01/20/17 04:12 01/20/17 03:14 General appearance: Present: cooperative, morbidly obese, pleasant, no acute distress, answers questions appropriately - Head Head exam: Present: atraumatic, normocephalic - Eye Eye exam: Present: PERRL, conjuntiva pink, sclera anicteric - Neck Neck exam general surgery: Present: supple, trachea midline. Absent: lymphadenopathy - Respiratory Respiratory exam: Present: wheezes. Absent: accessory muscle use, rales, rhonchi - Cardiovascular Cardiovascular exam: Present: RRR, +S1, +S2. Absent: diastolic murmur, gallop, rubs, systolic murmur - GI/Abdominal GI/Abdominal exam: Present: normal bowel sounds, soft, tenderness (feliberto- umbilical), no peritoneal signs. Absent: distended, firm - Extremities Exam Extremities exam: Present: pedal edema (2+ pitting bilaterally), warm, radial pulses palpable and symetrical. Absent: calf tenderness, cyanotic - Neurological Exam Neurological exam: Present: alert, no focal deficits. Absent: facial droop, speech deficit - Psychiatric Psychiatric exam: Present: anxious - Skin Skin exam: Present: dry, intact Internal Med - H&P Results - Labs CBC & Chem 7: 01/20/17 01:45 01/20/17 01:45 Labs: Short CBC 01/20/17 Range/Units 01:45 WBC 30.4 H* D (4.3-11.1) K/mcL Hgb 11.5 (11.5-15.4) g/dL Hct 35.6 (35.3-44.9) % Plt Count 311 (140-400) K/mcL Neutrophils # 21.3 H (1.6-8.9) K/mcL BMP 01/20/17 01:45 Sodium 138 Potassium 3.4 L Chloride 107 Carbon Dioxide 23 BUN 22 H Creatinine 1.12 H Glucose 182 H Calcium 8.4 L Cardiac Enzymes 01/20/17 Range/Units 01:45 Troponin I 0.01 (0-0.03) ng/mL Urine 01/20/17 Range/Units 02:00 Urine Color Yellow (Yellow) Urine Clarity Clear (Clear) Urine pH 6.0 (5.0-8.0) pH Units Ur Specific [place] 1.029 H (1.010-1.025) Urine Protein >=300 H (Neg-Trace) mg/dL Urine Glucose (UA) Normal (Normal) mg/dL - Impressions ITS Impressions Chest X-Ray 01/20/17 01:01 IMPRESSION: No focal airspace disease. D/ / Adriel Hoskins MD / Adriel Hoskins MD Interpreting Provider: Adriel Hoskins MD <Sam Hoffman - Last Filed: 01/20/17 08:22> Date of Encounter: 01/20/17 Internal Medicine - H&P: HPI History of present illness: Ms. Boyd is a 46 year old female All Systems PM: A 10-system review of systems was performed and is negative for pertinent findings except as documented above in the HPI. - Constitutional Vitals: Temp Pulse Resp BP Pulse Ox 98.0 F 80 16 140/78 96 01/20/17 07:15 01/20/17 07:15 01/20/17 08:04 01/20/17 07:15 01/20/17 08:04 Internal Med - H&P Results - Labs CBC & Chem 7: 01/20/17 01:45 01/20/17 01:45 - Attending Attestation I examined this patient and my medical decision-making was reviewed with the [employer]/PA/Advanced Practice Nurse/Resident Physician. I agree with the documented findings, disposition and treatment plan as described
[2017-01-20] MEDS ORDERED: Acetaminophen 325 MG TABLET PO PRN (04:58)
[2017-01-20] MEDS ORDERED: Naloxone 0.4 MG/ML INJ IVP PRN (04:58)
[2017-01-20] MEDS ORDERED: Azithromycin 250 MG TABLET PO ONE (04:58)
[2017-01-20] MEDS ORDERED: *HR* Dextrose 50 % in Water (Syg) 50 ML SYRINGE IVP PRN (04:58)
[2017-01-20] MEDS ORDERED: D5% in Water 1,000 ML IVC PRN (04:58)
[2017-01-20] MEDS ORDERED: Dextrose Gel 15 GM PO PRN ×2 (04:58)
[2017-01-20] MEDS ORDERED: *HR* HYDROcodone/Acet 5/325 mg TABLET PO PRN (05:05)
[2017-01-20] MEDS ORDERED: Nitroglycerin 0.4 MG TAB.SUBL SL PRN (05:05)
[2017-01-20] MEDS: *HR* Heparin 5,000 UNIT/ML VIAL SQ SCH ×2 (05:45→18:24)
[2017-01-20] MEDS ORDERED: Insulin LISPRO 300 UNITS/3 ML VIAL SQ SCH ×2 (07:30→21:00)
[2017-01-20] MEDS: Budesonide/Formoterol 160/4.5 MDI IH SCH ×2 (08:03→20:01)
[2017-01-20] MEDS: methylPREDNISolone 125 MG/2 ML VIAL IVP SCH ×3 (08:32→23:19)
[2017-01-20] MEDS: Nicotine 21 MG PATCH.TD24 TD SCH (08:37)
[2017-01-20] MEDS: Diltiazem CD (24hr) 120 MG CAPSULE PO SCH (08:37)
[2017-01-20] MEDS: Aspirin 81 MG TAB.CHEW PO SCH (08:37)
[2017-01-20] MEDS: Ondansetron 4 MG/2 ML VIAL IVP PRN ×2 (08:50→16:06)
[2017-01-20] MEDS ORDERED: (Breo Ellipta 100-25 Mcg Inh) IH SCH (09:00)
[2017-01-20] MEDS ORDERED: Furosemide 40 MG/4 ML VIAL IVP SCH (09:00)
[2017-01-20] MEDS: *HR* OxyCODONE Immed Rel 5 MG TABLET PO PRN ×3 (09:56→18:24)
[2017-01-20] MEDS: Insulin DETEMIR 100 UNIT/ML X5UNITS SQ SCH ×2 (09:59→21:43)
[2017-01-20] MEDS: Insulin LISPRO 300 UNITS/3 ML VIAL SQ SCH ×3 (11:58→21:44)
[2017-01-20] MEDS: Gabapentin 300 MG CAPSULE PO SCH ×2 (14:12→21:10)
--- NOTE | 2017-01-20 15:02 | Event Note ---
Date of Encounter: 01/20/17 Time of Encounter: 11:35 Patient complains of left knee pain. She reports twisting her leg while getting into the shower yesterday. Also complains of back pain which has been getting worse since her last hospitalization. Physical therapy has been consulted to evaluate patient. Will get chest x-ray of the left knee. Pain control. Continue Lasix for pedal edema and diastolic heart failure and continue bronchodilators and steroids for COPD.
[2017-01-20] MEDS: Ipratropium/Albuterol Neb 3 ML IH SCH ×4 (16:28→23:23)
[2017-01-20] MEDS: Furosemide 40 MG/4 ML VIAL IVP SCH (16:56)
--- NOTE | 2017-01-20 17:46 | Electrocardiograph Report ---
[place] [id number] Test Date: 2017-01-20 Pat Name: Yeny Boyd Department: 102 Room: [facility] Gender: F Chief Jailer: Phyllis : 1970 Requested By: Dilshad Rosario Order Number: [id number] Reading MD: Janiya Benitez Measurements Intervals [place] Rate: 101 P: 58 KS: 120 QRS: 9 QRSD: 105 T: 31 QT: 319 QTc: 377 Interpretive Statements SINUS TACHYCARDIA ABNORMAL RHYTHM ECG Electronically Signed On 01-20-2017 17:44:18 EDT by Janiya Benitez
[2017-01-20] MEDS ORDERED: Insulin DETEMIR 100 UNIT/ML X5UNITS SQ SCH (21:00)
[2017-01-20] MEDS ORDERED: *HR* Morphine 2 MG/ML SYRINGE IVP STA (21:26)
[2017-01-20] MEDS ORDERED: Insulin LISPRO 300 UNITS/3 ML VIAL SQ ONE (22:07)
[2017-01-21] MEDS: *HR* OxyCODONE Immed Rel 5 MG TABLET PO PRN ×6 (00:23→22:05)
[2017-01-21] MEDS: Ondansetron ODT 4 MG TAB.RAPDIS SL PRN (00:24)
[2017-01-21 01:51] LABS: Nucleated Red Blood Cells 0.1 /100 WBC (0)
[2017-01-21 01:53] LABS: Hematocrit 36.6 % (35.3-44.9); Hemoglobin 11.6 g/dL (11.5-15.4); Mean Corpuscular HGB Conc 31.7 g/dL (31.6-35.5); Mean Corpuscular Hemoglobin 28.4 pg (28.0-33.3); Mean Corpuscular Volume 89.7 fL (83.0-100.0); Mean Platelet Volume 10.5 fL (9.4-12.4); Platelet Count 297 K/mcL (140-400); Red Blood Count 4.08 M/mcL (3.82-4.97); Red Cell Distribution Width 16.8 % (11.5-14.5)
[2017-01-21 02:07] LABS: Calcium 8.4 mg/dL (8.6-10.8); Magnesium 1.8 mg/dL (1.6-2.6); Phosphorous 3.8 mg/dL (2.3-4.7); Potassium 4.2 mEq/L (3.5-4.5)
[2017-01-21 02:15] LABS: Anisocytosis 1+ (Not Present); Monocytes # 0.6 K/mcL (0.0-1.3); Neutrophils # 22.8 K/mcL (1.6-8.9); Platelet Estimate Normal (Normal)
[2017-01-21 02:16] LABS: Hypochromasia Present (Not Present)
[2017-01-21] MEDS: Ondansetron 4 MG/2 ML VIAL IVP PRN ×3 (03:32→22:06)
[2017-01-21] MEDS: Ipratropium/Albuterol Neb 3 ML IH SCH ×6 (03:47→23:14)
[2017-01-21] MEDS ORDERED: SUMAtriptan succinate 25 MG TABLET PO ONE (04:19)
[2017-01-21] MEDS: *HR* Heparin 5,000 UNIT/ML VIAL SQ SCH ×2 (04:57→17:23)
[2017-01-21] MEDS: Insulin LISPRO 300 UNITS/3 ML VIAL SQ SCH ×6 (08:24→22:07)
[2017-01-21] MEDS: Insulin DETEMIR 100 UNIT/ML X5UNITS SQ SCH ×2 (08:25→22:06)
[2017-01-21] MEDS: methylPREDNISolone 125 MG/2 ML VIAL IVP SCH (08:25)
[2017-01-21] MEDS: Furosemide 40 MG/4 ML VIAL IVP SCH ×2 (08:25→17:19)
[2017-01-21] MEDS: Diltiazem CD (24hr) 120 MG CAPSULE PO SCH (08:28)
[2017-01-21] MEDS: Gabapentin 300 MG CAPSULE PO SCH ×3 (08:29→22:06)
[2017-01-21] MEDS: Azithromycin 250 MG TABLET PO SCH (08:29)
[2017-01-21] MEDS: Nicotine 21 MG PATCH.TD24 TD SCH (08:29)
[2017-01-21] MEDS: Aspirin 81 MG TAB.CHEW PO SCH (08:30)
[2017-01-21] MEDS: Budesonide/Formoterol 160/4.5 MDI IH SCH ×2 (08:58→20:01)
[2017-01-21] MEDS: Venlafaxine XR (24 HR) 75 MG CAP.ER.24H PO SCH (12:19)
--- NOTE | 2017-01-21 15:04 | Internal Med Progress Note ---
Date of Encounter: 01/21/17 Time of Encounter: 10:45 - Assessment and plan (1) CHF exacerbation Current Visit: Yes Status: Acute Assessment and plan: Patient has had good urine output with intravenous Lasix. We will continue for IV Lasix for another day and transition to oral Lasix tomorrow. Renal function is slightly worse but patient does have chronic kidney disease stage III. Moderate risk for complications. Qualifiers: Congestive heart failure type: diastolic Qualified Code(s): I50.33 - Acute on chronic diastolic (congestive) heart failure (2) Acute exacerbation of chronic obstructive pulmonary disease (COPD) Current Visit: Yes Status: Acute Assessment and plan: Continue bronchodilators. Taper steroids. (3) Bilateral leg pain Current Visit: Yes Status: Acute Assessment and plan: Bilateral knee pain greater on the left. Likely from osteoarthritis. X-ray of the knee does not show any acute fractures. (4) Chronic pain associated with significant psychosocial dysfunction Current Visit: Yes Status: Chronic Assessment and plan: Patient asking for pain medications for her back pain. No acute causes for exacerbation of back pain. On narcotic medications orally to control pain. Physical therapy evaluated patient and recommended home health (5) CKD (chronic kidney disease) stage 3, GFR 30-59 ml/min Current Visit: Yes Status: Chronic Assessment and plan: BUN and creatinine are elevated compared to yesterday. Likely from Lasix use. Recent does have chronic kidney disease stage III. We will follow renal function closely. Address further worsening of renal function due to intravenous Lasix use. (6) Hypertension Current Visit: Yes Status: Chronic Assessment and plan: Diastolic blood pressure elevated this morning. We will continue to monitor closely. Continue her current antihypertensive regimen. Qualifiers: Hypertension type: essential hypertension Qualified Code(s): I10 - Essential (primary) hypertension (7) Pedal edema Current Visit: Yes Status: Acute (8) Diabetes mellitus type 2 in obese Current Visit: Yes Status: Acute Assessment and plan: With severe hyperglycemia. We will increase insulin regimen and monitor blood sugars closely. Continue ADA diet. (9) Morbid obesity with BMI of 60.0-69.9, adult Current Visit: No Status: Chronic - Subjective Interval history: Complaining of left knee pain and low back pain. Otherwise breathing is improving. Has had good urine output. Swelling in her lower extremities is improving. No chest pain. No palpitations. - Constitutional Vitals: Temp Pulse Resp BP Pulse Ox 97.5 F L 87 18 136/101 92 01/21/17 11:33 01/21/17 11:33 01/21/17 11:41 01/21/17 11:33 01/21/17 11:41 General appearance: Present: cooperative, mild distress, morbidly obese, pleasant, answers questions appropriately - Neck Neck exam general surgery: Present: supple, trachea midline. Absent: lymphadenopathy - Respiratory Respiratory exam: Present: CTAB. Absent: accessory muscle use, rales, rhonchi, wheezes - Cardiovascular Cardiovascular exam: Present: RRR, +S1, +S2. Absent: diastolic murmur, gallop, rubs, systolic murmur - GI/Abdominal GI/Abdominal exam: Present: normal bowel sounds, soft, no peritoneal signs. Absent: distended, tenderness - Extremities Exam Extremities exam: Present: pedal edema Additional comments: Tenderness over left knee joint without any erythema - Neurological Exam Neurological exam: Present: alert, CN II-XII intact, oriented X3, no focal deficits. Absent: facial droop, speech deficit - Skin Skin exam: Present: dry, intact Internal Medicine: Result - Labs CBC & Chem 7: 01/21/17 01:36 01/21/17 01:36 Labs: Short CBC 01/21/17 Range/Units 01:36 WBC 28.5 H (4.3-11.1) K/mcL Hgb 11.6 (11.5-15.4) g/dL Hct 36.6 (35.3-44.9) % Plt Count 297 (140-400) K/mcL Neutrophils # 22.8 H (1.6-8.9) K/mcL BMP 01/21/17 01:36 Sodium 135 L Potassium 4.2 Chloride 100 Carbon Dioxide 22 BUN 38 H D Creatinine 1.64 H Glucose 453 H Calcium 8.4 L Consult Discharge Plan - Plan Referrals: [facility] [place] [Outside] (THE OFFICE WILL CONTACT YOU REGARDING FOLLOW UP APPOINTMENT AND SETTING UP OF HOME HEALTH SERVICES ONCE THEY RECEIVE THE NEW PATIENT PAPERWORK) NO,PCP [Primary Care Provider] -
[2017-01-22] MEDS ORDERED: *HR* LORazepam 2 MG/ML VIAL IVP ONE (02:22)
[2017-01-22] MEDS: *HR* HYDROcodone/Acet 5/325 mg TABLET PO PRN ×3 (02:34→16:20)
[2017-01-22 03:06] LABS: Nucleated Red Blood Cells 0.1 /100 WBC (0)
[2017-01-22 03:08] LABS: Basophils # 0.2 K/mcL (0.0-0.2); Basophils % 0.4 %; Hematocrit 37.9 % (35.3-44.9); Hemoglobin 11.6 g/dL (11.5-15.4); Immature Granulocytes % 5.7 % (0-4); Immature Platelets 4.6 % (1.1-6.1); Lymphocytes # 1.9 K/mcL (0.6-4.6); Lymphocytes % 4.9 %; Mean Corpuscular HGB Conc 30.6 g/dL (31.6-35.5); Mean Corpuscular Hemoglobin 28.6 pg (28.0-33.3); Mean Corpuscular Volume 93.3 fL (83.0-100.0); Mean Platelet Volume 10.5 fL (9.4-12.4); Monocytes % 3.5 %; Neutrophils # 32.7 K/mcL (1.6-8.9); Platelet Count 307 K/mcL (140-400); Red Blood Count 4.06 M/mcL (3.82-4.97); Red Cell Distribution Width 17.2 % (11.5-14.5); Segmented Neutrophils % 85.5 %
[2017-01-22 03:22] LABS: Monocytes # 1.3 K/mcL (0.0-1.3)
[2017-01-22 03:33] LABS: Calcium 8.4 mg/dL (8.6-10.8); Potassium 5.1 mEq/L (3.5-4.5)
[2017-01-22 03:36] LABS: Hypersegmented Neutrophils Present (Not Present); Platelet Estimate Normal (Normal)
[2017-01-22] MEDS: Ipratropium/Albuterol Neb 3 ML IH SCH ×6 (03:58→23:16)
[2017-01-22] MEDS: *HR* Heparin 5,000 UNIT/ML VIAL SQ SCH ×2 (06:32→20:51)
[2017-01-22] MEDS: Budesonide/Formoterol 160/4.5 MDI IH SCH ×2 (07:47→19:47)
[2017-01-22] MEDS: Nicotine 21 MG PATCH.TD24 TD SCH (10:19)
[2017-01-22] MEDS: Venlafaxine XR (24 HR) 75 MG CAP.ER.24H PO SCH (10:21)
[2017-01-22] MEDS: Aspirin 81 MG TAB.CHEW PO SCH (10:21)
[2017-01-22] MEDS: Diltiazem CD (24hr) 120 MG CAPSULE PO SCH (10:21)
[2017-01-22] MEDS: Gabapentin 300 MG CAPSULE PO SCH ×3 (10:21→21:00)
[2017-01-22] MEDS: predniSONE 20 MG TABLET PO SCH (10:22)
[2017-01-22] MEDS: Azithromycin 250 MG TABLET PO SCH (10:22)
[2017-01-22] MEDS: Furosemide 40 MG TABLET PO SCH ×2 (10:22→20:54)
[2017-01-22] MEDS: Insulin DETEMIR 100 UNIT/ML X5UNITS SQ SCH (10:24)
[2017-01-22] MEDS: Insulin LISPRO 300 UNITS/3 ML VIAL SQ SCH ×7 (12:16→21:01)
--- NOTE | 2017-01-22 13:58 | Internal Med Progress Note ---
Date of Encounter: 01/22/17 Time of Encounter: 09:00 - Assessment and plan (1) CHF exacerbation Current Visit: Yes Status: Acute Assessment and plan: Improving with IV Lasix use. We will transition to oral Lasix. Renal function did get worse compared to yesterday. We will consult nephrology for further recommendations. Qualifiers: Congestive heart failure type: diastolic Qualified Code(s): I50.33 - Acute on chronic diastolic (congestive) heart failure (2) Leukocytosis Current Visit: Yes Status: Suspected Assessment and plan: Leukocytosis. Present on admission. Patient was receiving high dose of steroids prior to hospitalization. This could be contributing to do the rise in WBC count. It is neutrophil predominant but the patient did have 2% metamyelocytes and 6% myelocytes on initial presentation. Reviewing her lab work, patient has had leukocytosis persistently since at least October of this year and has leukocytosis ranging between 16-20 during most of last year. Discussed with hematology and will consult for their recommendations. Check for BCR ABL 1 abnormality. Peripheral smear shows absolute neutrophilia and lymphocytosis with slight left shift favoring a reactive process with possible corticosteroid or infectious process as possible etiologies. As steroid dosage has been decreased, we will reassess patient's response and follow blood counts closely. No signs of infection but will repeat chest x-ray and also get CT scan of the abdomen and pelvis. Qualifiers: Leukocytosis type: leukemoid reaction Qualified Code(s): D72.823 - Leukemoid reaction (3) Acute exacerbation of chronic obstructive pulmonary disease (COPD) Current Visit: Yes Status: Acute Assessment and plan: Treating with bronchodilators and steroids. Also on azithromycin for empiric antibiotic coverage (4) Bilateral leg pain Current Visit: Yes Status: Acute Assessment and plan: Likely from osteoarthritis. No signs of acute inflammation or infection. (5) Chronic pain associated with significant psychosocial dysfunction Current Visit: Yes Status: Chronic Assessment and plan: Continue supportive care and current management with oral medications. (6) CKD (chronic kidney disease) stage 3, GFR 30-59 ml/min Current Visit: Yes Status: Chronic Assessment and plan: Renal function worsened today. Consulted nephrology for further recommendations. Lasix has been changed to an oral dose. We will decrease dosage (7) Hypertension Current Visit: Yes Status: Chronic Assessment and plan: Well controlled. Qualifiers: Hypertension type: essential hypertension Qualified Code(s): I10 - Essential (primary) hypertension (8) Pedal edema Current Visit: Yes Status: Acute Assessment and plan: Due to fluid overload. Improving. (9) Diabetes mellitus type 2 in obese Current Visit: Yes Status: Acute Assessment and plan: Blood sugars remain elevated but improved. We will increase long-acting insulin dosage further. (10) Morbid obesity with BMI of 60.0-69.9, adult Current Visit: No Status: Chronic - Subjective Interval history: Patient complaining of left flank pain. This is worse compared to yesterday. Denies any nausea or vomiting. Continues to have left knee pain but slightly improved. Denies any fever chills or night sweats. - Constitutional Vitals: Temp Pulse Resp BP Pulse Ox 98.0 F 80 18 121/64 95 01/22/17 11:23 01/22/17 11:23 01/22/17 11:23 01/22/17 11:23 01/22/17 11:23 General appearance: Present: cooperative, mild distress, morbidly obese, pleasant, answers questions appropriately - Neck Neck exam general surgery: Present: supple, trachea midline. Absent: lymphadenopathy - Respiratory Respiratory exam: Present: prolonged expiratory phase, wheezes. Absent: accessory muscle use, rales, rhonchi Additional comments: Decreased air entry bilaterally - Cardiovascular Cardiovascular exam: Present: RRR, +S1, +S2. Absent: diastolic murmur, gallop, rubs, systolic murmur - GI/Abdominal GI/Abdominal exam: Present: normal bowel sounds, soft, no peritoneal signs. Absent: distended, tenderness - Extremities Exam Extremities exam: Present: pedal edema (Improved compared to yesterday), warm, radial pulses palpable and symetrical. Absent: calf tenderness, cyanotic - Back Exam Back exam: Present: muscle spasm Additional comments: Tenderness in the left flank region likely related to muscle spasm - Neurological Exam Neurological exam: Present: alert, CN II-XII intact, oriented X3, no focal deficits. Absent: facial droop, speech deficit Internal Medicine: Result - Labs CBC & Chem 7: 01/22/17 02:55 01/22/17 02:55 Labs: Short CBC 01/22/17 Range/Units 02:55 WBC 38.2 H* (4.3-11.1) K/mcL Hgb 11.6 (11.5-15.4) g/dL Hct 37.9 (35.3-44.9) % Plt Count 307 (140-400) K/mcL Neutrophils # 32.7 H (1.6-8.9) K/mcL BMP 01/22/17 02:55 Sodium 134 L Potassium 5.1 H Chloride 100 Carbon Dioxide 24 BUN 57 H D Creatinine 2.20 H Glucose 256 H Calcium 8.4 L - Impressions Impressions Abdomen/Pelvis CT 01/22/17 09:55 IMPRESSION: No renal, ureteral, or bladder stone. Sigmoid diverticulosis. No evidence of acute diverticulitis. 2 small ventral wall hernias right of midline which contain nonobstructed loops of small bowel without evidence of obstruction. D/ / Molly Landaverde MD / Molly Landaverde MD Interpreting Provider: Molly Landaverde MD Consult Discharge Plan - Plan Referrals: [facility] [place] [Outside] (THE OFFICE WILL CONTACT YOU REGARDING FOLLOW UP APPOINTMENT AND SETTING UP OF HOME HEALTH SERVICES ONCE THEY RECEIVE THE NEW PATIENT PAPERWORK) NO,PCP [Primary Care Provider] -
[2017-01-22] MEDS ORDERED: Insulin DETEMIR 100 UNIT/ML X5UNITS SQ SCH (14:08)
--- NOTE | 2017-01-22 15:54 | Oncology Inp Consult Note ---
Date of Encounter: 01/22/17 Time of Encounter: 15:00 Assessment and Plan (1) Leucocytosis Status: Chronic Assessment and plan: Leucocytosis appears to be chronic,, patient had numerous hospitalizations, ER visit at the time of blood draw, possible reactive secondary to infection/ inflammation. She also continues to smoke cigarettes and has history of COPD bronchitis. Diff/PS findings noted. Need to r/o chronic leukemic process. Hgb and plt nl though Hgb trended down last 2 yrs from 15-12g BCR/ABL has been sent, will await results and find out from path is [facility] test can be sent. Back discomfort/muscle spasm-pain meds per hospital staff-- Discussed with nursing staff. Plan of care d/w her in detail nad she stated understanding Qualifiers: Leukocytosis type: leukemoid reaction Qualified Code(s): D72.823 - Leukemoid reaction - Data of Consult Requesting Physician: Soha Middleton MD Primary Care Provider: PCP NO - Consult Narrative Reason for consult: Leucocytosis History of present illness: Ms. Boyd is a 46 year old female multiple medical comorbidities including COPD, CHF, diabetes mellitus, gastroesophageal reflux disease, depression, chronic kidney disease, osteoarthritis, morbid obesity history of pulmonary embolism in the past recent hospitalization for staph septicemia, with numerous prior admissions, emergency room visits in the past seen and evaluated for chronic leukocytosis. Review of patient's labs indicate leukocytosis with left shift since at least 2006 without anemia, overall patient's hemoglobin though had declined within the last to 3 years. He was discharged home 01/11/2017 on Levaquin and prednisone. She was seen by infectious diseases during that visit. She is currently hospitalized due to acute exacerbation of COPD she, shortness of breath on prednisone 40 mg dose. White blood cell count is elevated around 30,000, with metamyelocyte myelocyte, neutrophilia. Chest x-ray is negative for pneumonia. A CT scan of the abdomen had shown diverticulosis without diverticulitis. Hematology consulted to rule out primary blood disorder This minimally short of breath at rest on oxygen and is wheezing. She denies any productive phlegm, she is a smoker and she continues to smoke. She denies any erythematous skin rash. She has itchy area in the right lateral hip. She has some back discomfort in the lower back. 14 point review of systems otherwise negative. Past Med Surg Social Fam HX - Past Medical History Medical history: arthritis, asthma, CHF, COPD, coronary artery disease, DVT, diabetes, fibromyalgia, GERD, hyperlipidemia, hypertension, migraine, osteoporosis, pulmonary embolus, renal disease, syncope, other Psychiatric history: anxiety, bipolar, depression, other - Past Surgical History Surgical History: , cholecystectomy, other - Social History Smoking Status: Current every day smoker Smokeless Tobacco Status: No Alcohol use: none Drug use: marijuana - Family History Father Living Status: Hx Family Cancer: Yes (testicular, brain) Mother Family Member Ethnicity: Non- Living Status: Hx Family Cardiac Disorders: Yes ([place]) Hx Family Endocrine Disorder: Yes (DM) Brother Living Status: Still Living Hx Family Cardiac Disorders: Yes ([place], CAD, HTN, HLD) Medications and Allergies Albuterol Sulfate [Albuterol Inhaler] 2 puff IH Q4HR PRN 03/09/15 [History] Budesonide/Formoterol 160/4.5 [Symbicort] 2 puff IH BID 03/09/15 [History] Insulin LISPRO [Humalog Kwikpen U-100] 10 unit SQ TIDAC #100 mls 07/09/16 [Rx] Lisinopril [Zestril] 10 mg PO DAILY #30 tablet 07/09/16 [Rx] Fluticasone/Vilanterol [Breo Ellipta 100-25 Mcg INH] 1 puff IH BID 01/11/17 [ History] Oxygen 2 l .ROUTE AD 01/11/17 [History] Albuterol Neb [AccuNeb] 1 vial IH 6XD PRN #10 inhsol 01/15/17 [Rx] Aspirin 81 mg PO DAILY #30 tab.chew 01/15/17 [Rx] Atorvastatin [Lipitor] 80 mg PO HS #60 tablet 01/15/17 [Rx] Diltiazem CD (24hr) [Cardizem CD] 120 mg PO DAILY #60 cap.er.24h 01/15/17 [Rx] HYDROcodone/Acet 5/325 mg [[place] 5-325 mg] 1 tab PO Q6H PRN #10 tab 01/15/17 [Rx ] Insulin Glargine,Hum.rec.anlog [Lantus Solostar] 60 unit SQ DAILY #10 01/15/17 [Rx] Nicotine Patch [Nicoderm] 21 mg TD DAILY #30 patch.td24 01/15/17 [Rx] Nitroglycerin 0.4 mg SL Q5MIN PRN #60 tab.subl 01/15/17 [Rx] Nystatin POWDER [Nystop] 1 appl TP TID #1 bottle 01/15/17 [Rx] Omeprazole [PriLOSEC] 20 mg PO DAILY #60 capsule. 01/15/17 [Rx] Gabapentin [Neurontin] 300 mg PO TID 01/20/17 [History] Allergies No Known Allergies Allergy (Verified 01/20/17 01:06) Review of systems: as in HPI Oncology - Exam - Constitutional Vitals: Temp Pulse Resp BP Pulse Ox 98.0 F 80 18 121/64 95 01/22/17 11:23 01/22/17 11:23 01/22/17 11:23 01/22/17 11:23 01/22/17 11:23 General appearance: mild distress, morbidly obese - Head Head exam: Present: atraumatic, normal inspection - Eye Eye exam: Present: sclera anicteric - Neck Neck exam: Present: full ROM - Respiratory Respiratory exam: Present: wheezes Additional comments: jerrell wheeze - Cardiovascular Cardiovascular exam: Present: +S1, +S2 - GI/Abdominal GI/Abdominal exam: Present: soft Additional comments: non tender, NBS - Extremities Exam Extremities exam: Present: pedal edema - Back Exam Back exam: Present: normal inspection Additional comments: no bony tenderness - Neurological Exam Neurological exam: Present: alert, CN II-XII intact, oriented X3 - Psychiatric Psychiatric exam: Present: normal affect - Skin Additional comments: upper ext bruising Oncology - Results - Labs Labs: Short CBC 01/22/17 Range/Units 02:55 WBC 38.2 H* (4.3-11.1) K/mcL Hgb 11.6 (11.5-15.4) g/dL Hct 37.9 (35.3-44.9) % Plt Count 307 (140-400) K/mcL Neutrophils # 32.7 H (1.6-8.9) K/mcL BMP 01/22/17 02:55 Sodium 134 L Potassium 5.1 H Chloride 100 Carbon Dioxide 24 BUN 57 H D Creatinine 2.20 H Glucose 256 H Calcium 8.4 L Consult Discharge Plan - Plan Referrals: [facility] [place] [Outside] (THE OFFICE WILL CONTACT YOU REGARDING FOLLOW UP APPOINTMENT AND SETTING UP OF HOME HEALTH SERVICES ONCE THEY RECEIVE THE NEW PATIENT PAPERWORK) NO,PCP [Primary Care Provider] -
[2017-01-22] MEDS: Ondansetron ODT 4 MG TAB.RAPDIS SL PRN (16:21)
[2017-01-22] MEDS: *HR* OxyCODONE Immed Rel 5 MG TABLET PO PRN (20:59)
[2017-01-23] MEDS: *HR* HYDROcodone/Acet 5/325 mg TABLET PO PRN ×4 (00:56→21:13)
[2017-01-23] MEDS: Ondansetron ODT 4 MG TAB.RAPDIS SL PRN ×2 (00:57→12:43)
[2017-01-23] MEDS: Ipratropium/Albuterol Neb 3 ML IH SCH ×6 (03:51→23:33)
[2017-01-23 05:09] LABS: Nucleated Red Blood Cells 0.1 /100 WBC (0); Red Cell Distribution Width 17.3 % (11.5-14.5)
[2017-01-23 05:10] LABS: Hematocrit 35.5 % (35.3-44.9); Hemoglobin 10.8 g/dL (11.5-15.4); Mean Corpuscular HGB Conc 30.4 g/dL (31.6-35.5); Mean Corpuscular Hemoglobin 28.5 pg (28.0-33.3); Mean Corpuscular Volume 93.7 fL (83.0-100.0); Mean Platelet Volume 10.5 fL (9.4-12.4); Monocytes # 1.3 K/mcL (0.0-1.3); Platelet Count 273 K/mcL (140-400); Red Blood Count 3.79 M/mcL (3.82-4.97)
[2017-01-23 05:24] LABS: Calcium 7.9 mg/dL (8.6-10.8); Potassium 5.3 mEq/L (3.5-4.5)
[2017-01-23] MEDS: *HR* Heparin 5,000 UNIT/ML VIAL SQ SCH ×2 (05:28→18:29)
[2017-01-23] MEDS: Ondansetron 4 MG/2 ML VIAL IVP PRN (05:29)
[2017-01-23] MEDS: *HR* OxyCODONE Immed Rel 5 MG TABLET PO PRN ×3 (05:29→18:28)
[2017-01-23 05:46] LABS: Hypersegmented Neutrophils Present (Not Present); Lymphocytes # 1.9 K/mcL (0.6-4.6); Neutrophils # 28.1 K/mcL (1.6-8.9); Platelet Estimate Normal (Normal)
[2017-01-23 05:48] LABS: Anisocytosis 1+ (Not Present)
[2017-01-23 06:48] LABS: Folate 4.3 ng/mL (7.0-31.4)
[2017-01-23] MEDS: Budesonide/Formoterol 160/4.5 MDI IH SCH ×2 (07:57→20:30)
[2017-01-23] MEDS: Insulin LISPRO 300 UNITS/3 ML VIAL SQ SCH ×8 (08:04→20:37)
--- NOTE | 2017-01-23 08:28 | Nephrology Consult Note ---
Date of Encounter: 01/23/17 Time of Encounter: 08:26 Assessment and Plan (1) Acute renal failure Current Visit: No Status: Acute Patient has a clinical picture of acute kidney injury superimposed on stage III chronic kidney disease. She likely has chronic kidney disease related to diabetic nephropathy. She has a history of proteinuria. Possibly nephrotic range. Her acute kidney injury could be related to her recent diuresis. Patient has chronic lower extremity swelling. This could be related to her chronic kidney disease and proteinuria. The gabapentin may also be aggravating the lower extremity swelling. She also has a history of untreated sleep apnea that could also be aggravating her lower extremity swelling. She also has morbid obesity that could also be contributing to her lower extremity swelling. We will provide an evaluation for chronic kidney disease. We will also check a renal ultrasound and postvoid residual of the bladder. May be worthwhile to reduce the dose of the gabapentin to see if the patient swelling improves. For the time being I would leave her off the Lasix. We will quantitate the 24-hour urine protein excretion. Qualifiers: Acute renal failure type: unspecified Qualified Code(s): N17.9 - Acute kidney failure, unspecified (2) Type 2 diabetes mellitus with diabetic chronic kidney disease Current Visit: Yes Status: Acute Qualifiers: Diabetes mellitus terminal gauger insulin use: with terminal gauger use Chronic kidney disease stage: stage 3 (moderate) Qualified Code(s): E11.22 - Type 2 diabetes mellitus with diabetic chronic kidney disease; N18.3 - Chronic kidney disease, stage 3 (moderate); Z79.4 - intermediate school teacher (current) use of insulin (3) Proteinuria Current Visit: No Status: Acute Qualifiers: Proteinuria type: persistent Qualified Code(s): R80.1 - Persistent proteinuria, unspecified (4) CKD (chronic kidney disease) stage 3, GFR 30-59 ml/min Current Visit: Yes Status: Chronic History of Present Illness - History of Present Illness This is a 46-year-old female admitted with shortness of breath and lower extremity swelling. Since patient has been in the hospital she has developed some acute kidney injury. Admitting creatinine was 1.12. Yesterday creatinine peaked at 2.20. Today's creatinine is 2.00. Patient been on Lasix for management of her lower extremity swelling. It looks like the Lasix has been placed on hold. Patient is currently admitted for what appears to be an exacerbation of COPD. She reports a history of diabetes for about the past year or so but possibly longer. It is unclear if she has diabetic retinopathy. Urinalysis does show significant proteinuria. Patient also reports a history of hematuria. Patient says she had been taking Motrin on a regular basis until recently. Patient's lower extremity edema has been present for a while. She has chronic shortness of breath. She also has sleep apnea but has not been using a BiPAP machine. She is also being treated for hypertension for many years. Patient is also complaining of back pain. She takes narcotic analgesics. She also takes gabapentin 300 mg 3 times daily. Past Med Surg Social Fam HX - Past Medical History Medical history: arthritis, asthma, CHF, COPD, coronary artery disease, DVT, diabetes, fibromyalgia, GERD, hyperlipidemia, hypertension, migraine, osteoporosis, pulmonary embolus, renal disease, syncope, other Psychiatric history: anxiety, bipolar, depression, other - Past Surgical History Surgical History: , cholecystectomy, other - Social History Smoking Status: Current every day smoker Smokeless Tobacco Status: No Alcohol use: none Drug use: marijuana - Family History Father Living Status: Hx Family Cancer: Yes (testicular, brain) Mother Family Member Ethnicity: Non- Living Status: Hx Family Cardiac Disorders: Yes ([place]) Hx Family Endocrine Disorder: Yes (DM) Brother Living Status: Still Living Hx Family Cardiac Disorders: Yes ([place], CAD, HTN, HLD) Medications and Allergies Albuterol Sulfate [Albuterol Inhaler] 2 puff IH Q4HR PRN 03/09/15 [History] Budesonide/Formoterol 160/4.5 [Symbicort] 2 puff IH BID 03/09/15 [History] Insulin LISPRO [Humalog Kwikpen U-100] 10 unit SQ TIDAC #100 mls 07/09/16 [Rx] Lisinopril [Zestril] 10 mg PO DAILY #30 tablet 07/09/16 [Rx] Fluticasone/Vilanterol [Breo Ellipta 100-25 Mcg INH] 1 puff IH BID 01/11/17 [ History] Oxygen 2 l .ROUTE AD 01/11/17 [History] Albuterol Neb [AccuNeb] 1 vial IH 6XD PRN #10 inhsol 01/15/17 [Rx] Aspirin 81 mg PO DAILY #30 tab.chew 01/15/17 [Rx] Atorvastatin [Lipitor] 80 mg PO HS #60 tablet 01/15/17 [Rx] Diltiazem CD (24hr) [Cardizem CD] 120 mg PO DAILY #60 cap.er.24h 01/15/17 [Rx] HYDROcodone/Acet 5/325 mg [[place] 5-325 mg] 1 tab PO Q6H PRN #10 tab 01/15/17 [Rx ] Insulin Glargine,Hum.rec.anlog [Lantus Solostar] 60 unit SQ DAILY #10 01/15/17 [Rx] Nicotine Patch [Nicoderm] 21 mg TD DAILY #30 patch.td24 01/15/17 [Rx] Nitroglycerin 0.4 mg SL Q5MIN PRN #60 tab.subl 01/15/17 [Rx] Nystatin POWDER [Nystop] 1 appl TP TID #1 bottle 01/15/17 [Rx] Omeprazole [PriLOSEC] 20 mg PO DAILY #60 capsule.dr 01/15/17 [Rx] Gabapentin [Neurontin] 300 mg PO TID 01/20/17 [History] Allergies No Known Allergies Allergy (Verified 01/20/17 01:06) Review of Systems Constitutional: as per HPI, weight gain Nose, mouth and throat: no dizziness, no headache(s) Cardiovascular: dyspnea, dyspnea on exertion, edema Respiratory: dyspnea, dyspnea on exertion Gastrointestinal: no abdominal pain, no change in bowel habits Musculoskeletal: as per HPI, back pain Integumentary: no hirsutism, no striae Neurological: as per HPI Psychiatric: no depression, no difficulty concentrating Endocrine: as per HPI Exam - Vital Signs Vital signs: Initial Vital Signs Temp Pulse Resp BP Pulse Ox 98.2 F 100 18 155/91 97 01/20/17 01:06 01/20/17 01:06 01/20/17 01:06 01/20/17 01:06 01/20/17 01:06 Vital Signs - Last 8 Hours Temp Pulse Resp BP Pulse Ox 01/23/17 07:57 18 93 01/23/17 07:19 97.7 F 70 18 117/79 93 01/23/17 04:31 67 15 133/74 94 01/23/17 03:51 18 94 Intake and Output 01/22/17 01/23/17 01/23/17 23:59 07:59 15:59 Intake Total 240 / 240 Output Total 2300 / 2300 Balance 240 / 240 -2300 / -2300 Intake: Oral 240 / 240 Output: Urine 2300 / 2300 Other: Meal Dinner Percent of Meal Consumed 100% # Voids 0 Weight 157.8 kg Blood Glucose* 208 271 Patient Weight 01/23/17 23:59 Weight 157.8 kg - General Appearance Exam: Patient is morbidly obese. She is alert and oriented in no acute distress. She is sitting on the edge of the bed eating her breakfast. Neck is supple. Lungs bilateral rhonchi and wheezing. Heart regular rate and rhythm. Abdomen is obese. Bowel sounds are normal. Bruits masses organomegaly or tenderness. Lower extremity show 2+ lower extremity swelling. Results - Lab Results 01/23/17 04:57 01/23/17 04:57 Most recent lab results Calcium 7.9 mg/dL (8.6-10.8) L 01/23/17 04:57 Phosphorus 3.8 mg/dL (2.3-4.7) 01/21/17 01:36 Magnesium 1.8 mg/dL (1.6-2.6) 01/21/17 01:36 Consult Discharge Plan - Plan [facility]: [facility] [place] [Outside] (THE OFFICE WILL CONTACT YOU REGARDING FOLLOW UP APPOINTMENT AND SETTING UP OF HOME HEALTH SERVICES ONCE THEY RECEIVE THE NEW PATIENT PAPERWORK) NO,PCP [Primary Care Provider] -
[2017-01-23 09:07] LABS: Albumin 3.1 g/dL (3.5-5.0); Phosphorous 5.3 mg/dL (2.3-4.7)
[2017-01-23] MEDS: Diltiazem CD (24hr) 120 MG CAPSULE PO SCH (09:13)
[2017-01-23] MEDS: predniSONE 20 MG TABLET PO SCH (09:13)
[2017-01-23] MEDS: Azithromycin 250 MG TABLET PO SCH (09:13)
[2017-01-23] MEDS: Gabapentin 100 MG CAPSULE PO SCH ×3 (09:13→21:07)
[2017-01-23] MEDS: Venlafaxine XR (24 HR) 75 MG CAP.ER.24H PO SCH (09:13)
[2017-01-23] MEDS: Aspirin 81 MG TAB.CHEW PO SCH (09:13)
[2017-01-23] MEDS: Nicotine 21 MG PATCH.TD24 TD SCH (09:14)
[2017-01-23] MEDS: Insulin DETEMIR 100 UNIT/ML X5UNITS SQ SCH ×2 (09:35→21:09)
--- NOTE | 2017-01-23 10:15 | Internal Med Progress Note ---
Date of Encounter: 01/23/17 Time of Encounter: 08:30 - Assessment and plan (1) Acute renal failure Current Visit: Yes Status: Acute Assessment and plan: Likely related to diuretic use. BUN continues to increase. Baseline creatinine appears to vary from 1.2-1.6. Currently creatinine is 2. Remains stable compared to yesterday. Stop Lasix. Continue low-dose lisinopril. Follow nephrology recommendations. Moderate risk for complications. Continue to monitor intake and output. Qualifiers: Acute renal failure type: unspecified Qualified Code(s): N17.9 - Acute kidney failure, unspecified (2) CHF exacerbation Current Visit: Yes Status: Acute Assessment and plan: Was treated with IV diuretics. Renal function is worsening and so we will stop Lasix for now as patient appears to be adequately diuresed. Qualifiers: Congestive heart failure type: diastolic Qualified Code(s): I50.33 - Acute on chronic diastolic (congestive) heart failure (3) Leukocytosis Current Visit: Yes Status: Suspected Assessment and plan: Most likely related to steroid use. Hematology consult appreciated. Continue to monitor blood counts. Trending downwards currently. We will continue to decrease and taper steroid dose and follow. Qualifiers: Leukocytosis type: leukemoid reaction Qualified Code(s): D72.823 - Leukemoid reaction (4) Acute exacerbation of chronic obstructive pulmonary disease (COPD) Current Visit: Yes Status: Acute Assessment and plan: Being treated with steroid taper and bronchodilators. Clinically improving. (5) Bilateral leg pain Current Visit: Yes Status: Acute Assessment and plan: From chronic osteoarthritis. Continue supportive care and physical therapy. (6) Chronic pain associated with significant psychosocial dysfunction Current Visit: Yes Status: Chronic Assessment and plan: With acute worsening of low back pain. CT scan of the abdomen and pelvis does not show any acute process. We will treat with Flexeril as pain could be related to muscle spasm or cramps. (7) CKD (chronic kidney disease) stage 3, GFR 30-59 ml/min Current Visit: Yes Status: Chronic Assessment and plan: Management as above. (8) Hypertension Current Visit: Yes Status: Chronic Assessment and plan: Blood pressure is well controlled. Qualifiers: Hypertension type: essential hypertension Qualified Code(s): I10 - Essential (primary) hypertension (9) Pedal edema Current Visit: Yes Status: Acute Assessment and plan: Chronic. Improved Since admission. (10) Diabetes mellitus type 2 in obese Current Visit: Yes Status: Acute Assessment and plan: Blood sugars remain elevated but improving. We will further increase insulin regimen. Increase Levemir dosage to 50 units twice daily and increase nutritional insulin dosage to 16 units 3 times a day. Continue high dose correctional sliding scale insulin. (11) Morbid obesity with BMI of 60.0-69.9, adult Current Visit: No Status: Chronic - Subjective Interval history: Patient with history of morbid obesity, uncontrolled diabetes mellitus type 2, COPD, chronic respiratory failure being treated for CHF/COPD exacerbation with pedal edema. Received IV diuretics with had worsening of renal function. Nephrology consulted and following. Patient also has leukocytosis which is chronic but acutely worsen. Could be related to recent steroid use. Patient was discharged from recent hospitalization and 50 mg prednisone daily. Hematology has been consulted and recommend checking for BCR abl gene. Awaiting results. Patient continues to have some left flank pain. Slightly improved. Also having bilateral knee pain. Denies any chest pain. Breathing is improving. Swelling in both lower extremities has also improved - Constitutional Vitals: Temp Pulse Resp BP Pulse Ox 97.7 F 70 18 117/79 93 01/23/17 07:19 01/23/17 07:19 01/23/17 07:57 01/23/17 07:19 01/23/17 07:57 General appearance: Present: cooperative, mild distress, morbidly obese, pleasant, answers questions appropriately - Neck Neck exam general surgery: Present: supple, trachea midline. Absent: lymphadenopathy - Respiratory Respiratory exam: Present: prolonged expiratory phase, wheezes. Absent: accessory muscle use, rales, rhonchi - Cardiovascular Cardiovascular exam: Present: RRR, +S1, +S2. Absent: diastolic murmur, gallop, rubs, systolic murmur - GI/Abdominal GI/Abdominal exam: Present: normal bowel sounds, soft, no peritoneal signs. Absent: distended, tenderness - Extremities Exam Extremities exam: Present: warm, radial pulses palpable and symetrical. Absent : calf tenderness, cyanotic, pedal edema - Neurological Exam Neurological exam: Present: alert, oriented X3, no focal deficits. Absent: facial droop, speech deficit - Skin Skin exam: Present: dry, intact Internal Medicine: Result - Labs CBC & Chem 7: 01/23/17 04:57 01/23/17 04:57 Labs: Short CBC 01/23/17 Range/Units 04:57 WBC 31.2 H* (4.3-11.1) K/mcL Hgb 10.8 L (11.5-15.4) g/dL Hct 35.5 (35.3-44.9) % Plt Count 273 (140-400) K/mcL Neutrophils # 28.1 H (1.6-8.9) K/mcL BMP 01/23/17 04:57 Sodium 134 L Potassium 5.3 H Chloride 102 Carbon Dioxide 22 BUN 71 H Creatinine 2.00 H Glucose 331 H Calcium 7.9 L Liver Function 01/23/17 Range/Units 08:47 Albumin 3.1 L (3.5-5.0) g/dL - Impressions Impressions Abdomen/Pelvis CT 01/22/17 09:55 IMPRESSION: No renal, ureteral, or bladder stone. Sigmoid diverticulosis. No evidence of acute diverticulitis. 2 small ventral wall hernias right of midline which contain nonobstructed loops of small bowel without evidence of obstruction. D/ / Molly Landaverde MD / Molly Landaverde MD Interpreting Provider: Molly Landaverde MD Chest X-Ray 01/23/17 07:00 IMPRESSION: Negative portable chest. D/ / Ghanshyam Nguyen MD / Ghanshyam Nguyen MD Interpreting Provider: Ghanshyam Nguyen MD Consult Discharge Plan - Plan Referrals: [facility] [place] [Outside] (THE OFFICE WILL CONTACT YOU REGARDING FOLLOW UP APPOINTMENT AND SETTING UP OF HOME HEALTH SERVICES ONCE THEY RECEIVE THE NEW PATIENT PAPERWORK) NO,PCP [Primary Care Provider] -
[2017-01-24] MEDS: *HR* OxyCODONE Immed Rel 5 MG TABLET PO PRN ×5 (03:36→21:46)
[2017-01-24] MEDS: Ipratropium/Albuterol Neb 3 ML IH SCH ×5 (04:01→19:59)
[2017-01-24 05:35] LABS: Hematocrit 37.7 % (35.3-44.9); Hemoglobin 11.8 g/dL (11.5-15.4); Mean Corpuscular HGB Conc 31.3 g/dL (31.6-35.5); Mean Corpuscular Hemoglobin 29.3 pg (28.0-33.3); Mean Corpuscular Volume 93.5 fL (83.0-100.0); Mean Platelet Volume 10.6 fL (9.4-12.4); Platelet Count 254 K/mcL (140-400); Red Blood Count 4.03 M/mcL (3.82-4.97); Red Cell Distribution Width 17.7 % (11.5-14.5)
[2017-01-24 05:49] LABS: Albumin 3.1 g/dL (3.5-5.0); Albumin/Globulin Ratio 0.9 (1.1-2.2); Bilirubin,Total 0.6 mg/dL (0.2-1.2); Calcium 8.3 mg/dL (8.6-10.8); Globulin 3.6 g/dL (2.4-3.5); Potassium 5.6 mEq/L (3.5-4.5); Total Protein 6.7 g/dL (6.0-8.3)
[2017-01-24 05:56] LABS: Anisocytosis 1+ (Not Present); Lymphocytes # 2.6 K/mcL (0.6-4.6); Monocytes # 1.1 K/mcL (0.0-1.3); Neutrophils # 22.6 K/mcL (1.6-8.9); Platelet Estimate Normal (Normal)
[2017-01-24] MEDS: *HR* Heparin 5,000 UNIT/ML VIAL SQ SCH ×2 (06:07→17:37)
[2017-01-24] MEDS: Diltiazem CD (24hr) 120 MG CAPSULE PO SCH (08:14)
[2017-01-24] MEDS: Aspirin 81 MG TAB.CHEW PO SCH (08:15)
[2017-01-24] MEDS: Azithromycin 250 MG TABLET PO SCH (08:16)
[2017-01-24] MEDS: Gabapentin 100 MG CAPSULE PO SCH ×3 (08:16→20:34)
[2017-01-24] MEDS: predniSONE 20 MG TABLET PO SCH (08:16)
[2017-01-24] MEDS: Venlafaxine XR (24 HR) 75 MG CAP.ER.24H PO SCH (08:16)
[2017-01-24] MEDS: Nicotine 21 MG PATCH.TD24 TD SCH (08:17)
[2017-01-24] MEDS: Insulin LISPRO 300 UNITS/3 ML VIAL SQ SCH ×7 (08:20→21:53)
[2017-01-24] MEDS: Insulin DETEMIR 100 UNIT/ML X5UNITS SQ SCH ×2 (08:21→21:54)
[2017-01-24] MEDS: Ondansetron ODT 4 MG TAB.RAPDIS SL PRN ×2 (08:55→21:55)
[2017-01-24] MEDS: Budesonide/Formoterol 160/4.5 MDI IH SCH ×3 (09:22→19:59)
--- NOTE | 2017-01-24 11:09 | Nephrology Progress Note ---
Date of Encounter: 01/24/17 Time of Encounter: 10:45 - Assessment and Plan (1) Acute renal failure Current Visit: Yes Status: Acute CHANTELLE superimposed on CKD 3 related to diabetic nephropathy. History of proteinuria. History of chronic LE swelling which may be related to her CKD and proteinuria. 24 hour urine protein pending. Lasix on hold. creat improved 1.61. Urine output 3400cc past 24 hours. Will continue to monitor. Qualifiers: Acute renal failure type: unspecified Qualified Code(s): N17.9 - Acute kidney failure, unspecified Subjective Interval history: States breathing easier today. No new complaints. at bedside. Objective - Vital Signs Vital signs: Vital Signs Temp Pulse Resp BP Pulse Ox 01/24/17 05:59 97.8 F 79 18 131/72 94 01/24/17 04:01 18 100 01/23/17 23:35 20 93 01/23/17 20:30 12 94 01/23/17 19:15 97.6 F 75 18 134/69 96 01/23/17 16:50 16 94 01/23/17 15:18 97.8 F 73 16 140/82 92 01/23/17 11:37 97.9 F 77 18 129/78 95 01/23/17 11:29 18 93 Intake and Output 01/23/17 01/24/17 01/24/17 23:59 07:59 15:59 Intake Total 240 / 240 0 / 0 360 / 360 Output Total 700 / 700 500 / 500 Balance -460 / -460 -500 / -500 360 / 360 Intake: Oral 240 / 240 0 / 0 360 / 360 Output: Urine 700 / 700 500 / 500 Other: Meal Dinner Breakfast Percent of Meal Consumed 100% 100% Weight 158.6 kg Blood Glucose* 194 220 Patient Weight 01/24/17 23:59 Weight 158.6 kg - General Appearance General appearance: Present: well-developed, well-nourished, appears started age , obese EENT: Present: mucous membranes moist Neck: Present: no JVD Additional Comments: harsh breath sounds bilaterally Cardiology: Present: edema, regular rate, regular rhythm Additional Comments: mild - 1+ pitting edema LE Gastrointestinal: Present: hypoactive bowel sounds, obese Integumentary: Present: warm and dry Neurologic: Present: alert and oriented x3 Psychiatric: Present: mood/affect appropriate, cooperative - Lab 01/24/17 05:14 01/24/17 05:14 Most recent lab results Calcium 8.3 mg/dL (8.6-10.8) L 01/24/17 05:14 Phosphorus 5.3 mg/dL (2.3-4.7) H 01/23/17 08:47 Magnesium 1.8 mg/dL (1.6-2.6) 01/21/17 01:36 Consult Discharge Plan - Plan Referrals: [facility] [place] [Outside] (THE OFFICE WILL CONTACT YOU REGARDING FOLLOW UP APPOINTMENT AND SETTING UP OF HOME HEALTH SERVICES ONCE THEY RECEIVE THE NEW PATIENT PAPERWORK) NO,PCP [Primary Care Provider] -
--- NOTE | 2017-01-24 15:28 | Internal Med Progress Note ---
Date of Encounter: 01/24/17 Time of Encounter: 15:00 - Assessment and plan (1) Acute exacerbation of chronic obstructive pulmonary disease (COPD) Current Visit: Yes Status: Acute Assessment and plan: Improving with clear breath sounds. No wheezing present. Steroid taper and antibiotics. Likely discharge home tomorrow if her renal function is better. (2) Acute renal failure Current Visit: Yes Status: Acute Assessment and plan: Nephrology on board. Continue to hold Lasix. Renal function improving. Monitor renal function and urine output. His renal function is back to baseline and improved tomorrow, likely discharge home tomorrow. Patient is high risk is due to unresolved acute kidney injury and risk of worsening renal function. Qualifiers: Acute renal failure type: unspecified Qualified Code(s): N17.9 - Acute kidney failure, unspecified (3) Diabetes mellitus type 2 in obese Current Visit: Yes Status: Acute Assessment and plan: Stable blood sugars. Continue current dose of insulin. (4) Hypertension Current Visit: Yes Status: Chronic Assessment and plan: Blood pressure is well controlled. Continue current medications. Hold lisinopril due to renal dysfunction. Qualifiers: Hypertension type: essential hypertension Qualified Code(s): I10 - Essential (primary) hypertension (5) Morbid obesity with BMI of 60.0-69.9, adult Current Visit: No Status: Chronic (6) VITO (obstructive sleep apnea) Current Visit: No Status: Chronic - Subjective Interval history: Patient states that her breathing is better. She is complaining of pain in her lower back in the midline and the left knee without any radiation. The pain gets worse with movement and relieved with rest. She denies any nausea or vomiting. - Constitutional Vitals: Temp Pulse Resp BP Pulse Ox 97.8 F 79 14 131/72 96 01/24/17 05:59 01/24/17 05:59 01/24/17 11:45 01/24/17 11:45 01/24/17 11:45 General appearance: Present: cooperative, morbidly obese, pleasant, no acute distress, answers questions appropriately Exam: Gen.: Sitting in bed. No acute distress. Chest: Clear to auscultation bilaterally. No adventitious sounds present. CVS: First and second heart sounds present. No murmurs, rubs or gallops. Abdomen: Soft, nontender, obese. Bowel sounds present. No hepatosplenomegaly. Internal Medicine: Result - Labs CBC & Chem 7: 01/24/17 05:14 01/24/17 05:14 Labs: Short CBC 01/24/17 Range/Units 05:14 WBC 26.3 H (4.3-11.1) K/mcL Hgb 11.8 (11.5-15.4) g/dL Hct 37.7 (35.3-44.9) % Plt Count 254 (140-400) K/mcL Neutrophils # 22.6 H (1.6-8.9) K/mcL BMP 01/24/17 05:14 Sodium 136 Potassium 5.6 H Chloride 105 Carbon Dioxide 26 BUN 61 H Creatinine 1.61 H Glucose 232 H Calcium 8.3 L Liver Function 01/24/17 Range/Units 05:14 Total Bilirubin 0.6 (0.2-1.2) mg/dL AST 218 H (5-34) Units/L ALT 193 H (0-55) Units/L Alkaline Phosphatase 114 (38-126) Units/L Albumin 3.1 L (3.5-5.0) g/dL - Impressions Impressions Retroperitoneum Ultrasound 01/23/17 17:00 IMPRESSION: Unremarkable ultrasound of the kidneys and urinary bladder. D/ / Colin Kiran MD / Colin Kiran MD Interpreting Provider: Colin Kiran MD Consult Discharge Plan - Plan Referrals: [facility] [place] [Outside] (THE OFFICE WILL CONTACT YOU REGARDING FOLLOW UP APPOINTMENT AND SETTING UP OF HOME HEALTH SERVICES ONCE THEY RECEIVE THE NEW PATIENT PAPERWORK) NO,PCP [Primary Care Provider] -
[2017-01-24] MEDS: *HR* HYDROcodone/Acet 5/325 mg TABLET PO PRN (15:31)
[2017-01-25] MEDS: Ipratropium/Albuterol Neb 3 ML IH SCH ×4 (00:10→11:30)
[2017-01-25] MEDS: *HR* OxyCODONE Immed Rel 5 MG TABLET PO PRN ×2 (04:11→08:18)
[2017-01-25] MEDS: *HR* Heparin 5,000 UNIT/ML VIAL SQ SCH (05:31)
[2017-01-25 07:54] VITALS: BP 128/69
[2017-01-25] MEDS: Budesonide/Formoterol 160/4.5 MDI IH SCH (08:00)
[2017-01-25] MEDS: Gabapentin 100 MG CAPSULE PO SCH (08:15)
[2017-01-25] MEDS: Aspirin 81 MG TAB.CHEW PO SCH (08:15)
[2017-01-25] MEDS: Azithromycin 250 MG TABLET PO SCH (08:15)
[2017-01-25] MEDS: Diltiazem CD (24hr) 120 MG CAPSULE PO SCH (08:15)
[2017-01-25] MEDS: Nicotine 21 MG PATCH.TD24 TD SCH (08:16)
[2017-01-25] MEDS: predniSONE 20 MG TABLET PO SCH (08:16)
[2017-01-25] MEDS: Insulin DETEMIR 100 UNIT/ML X5UNITS SQ SCH (08:18)
[2017-01-25] MEDS: Insulin LISPRO 300 UNITS/3 ML VIAL SQ SCH ×4 (08:19→12:37)
[2017-01-25 08:24] LABS: Basophils # 0.1 K/mcL (0.0-0.2); Basophils % 0.3 %; Hematocrit 35.1 % (35.3-44.9); Hemoglobin 11.1 g/dL (11.5-15.4); Immature Granulocytes % 3.7 % (0-4); Lymphocytes # 3.6 K/mcL (0.6-4.6); Lymphocytes % 15.3 %; Mean Corpuscular HGB Conc 31.6 g/dL (31.6-35.5); Mean Corpuscular Hemoglobin 29.6 pg (28.0-33.3); Mean Corpuscular Volume 93.6 fL (83.0-100.0); Mean Platelet Volume 10.6 fL (9.4-12.4); Monocytes # 1.6 K/mcL (0.0-1.3); Monocytes % 6.8 %; Neutrophils # 17.4 K/mcL (1.6-8.9); Platelet Count 216 K/mcL (140-400); Red Blood Count 3.75 M/mcL (3.82-4.97); Red Cell Distribution Width 17.3 % (11.5-14.5); Segmented Neutrophils % 73.9 %
[2017-01-25 08:36] LABS: BUN/Creatinine Ratio 42 (6-26); Calcium 8.2 mg/dL (8.6-10.8); Carbon Dioxide 28 mEq/L (19-29); Chloride 103 mEq/L (98-109); Glucose 217 mg/dL (70-99); Osmolality,Calculated 300 (280-300); Sodium 136 mEq/L (136-145); eGFR For African Americans > 60 (> 60); eGFR For Non-African Americans 56 (> 60)
--- NOTE | 2017-01-25 08:40 | Oncology Inp Progress Note ---
Date of Encounter: 01/25/17 Time of Encounter: 08:00 (1) Leucocytosis Current Visit: Yes Status: Chronic Assessment and plan: Leucocytosis appears to be chronic,, labs improved. On Z donavon, COPD exacerbation BCR/ABL has been sent, f/u results once available Plan of care d/w her in detail and she states understanding Qualifiers: Leukocytosis type: leukemoid reaction Qualified Code(s): D72.823 - Leukemoid reaction Oncology: Subj Interval history: feels well, decr in pain meds not helped. - Constitutional Vitals: Vital Signs Temp Pulse Resp BP Pulse Ox 01/25/17 08:02 18 95 01/25/17 07:50 98 F 76 18 128/69 94 01/25/17 04:35 98.2 F 75 20 138/80 95 01/25/17 04:05 16 94 01/25/17 00:10 16 93 01/24/17 21:48 97.9 F 73 16 141/77 94 01/24/17 20:00 16 98 01/24/17 16:01 17 94 01/24/17 15:00 70 20 146/75 93 01/24/17 11:45 14 131/72 96 Intake and Output 01/24/17 01/25/17 01/25/17 23:59 07:59 15:59 Intake Total 0 / 0 240 / 240 Output Total 550 / 550 Balance 0 / 0 -310 / -310 Intake: Oral 0 / 0 240 / 240 Output: Urine 550 / 550 Other: # Voids 0 1 Weight 160.5 kg Blood Glucose* 244 206 Patient Weight 01/25/17 23:59 Weight 160.5 kg General appearance: no acute distress - Head Head exam: Present: atraumatic, normal inspection - Eye Eye exam: Present: sclera anicteric - ENT ENT exam: Present: mucous membranes moist - Respiratory Respiratory exam: Present: CTAB - Cardiovascular Cardiovascular exam: Present: +S1, +S2 - GI/Abdominal GI/Abdominal exam: Present: distended, soft - Extremities Exam Extremities exam: Present: normal capillary refill, normal inspection - Neurological Exam Neurological exam: Present: alert, CN II-XII intact, oriented X3 - Psychiatric Psychiatric exam: Present: normal mood Oncology: Obj Data - Labs CBC & Chem 7: 01/24/17 05:14 01/24/17 05:14 Labs: Laboratory Results - last 24 hr 01/24/17 01/24/17 01/24/17 07:51 11:35 16:09 POC Glucose 220 H 221 H 246 H 01/24/17 21:49 POC Glucose 244 H Consult Discharge Plan - Plan Referrals: [facility] [place] [Outside] (THE OFFICE WILL CONTACT YOU REGARDING FOLLOW UP APPOINTMENT AND SETTING UP OF HOME HEALTH SERVICES ONCE THEY RECEIVE THE NEW PATIENT PAPERWORK) NO,PCP [Primary Care Provider] -
[2017-01-25 08:43] LABS: Blood Urea Nitrogen 44 mg/dL (7-20)
--- NOTE | 2017-01-25 09:44 | Event Note ---
Date of Encounter: 01/25/17 Time of Encounter: 09:43 Patient reports she is feeling better. Her renal function continues to improve. Creatinine today is down to 1.06 which is the best she is thin. Pathology will sign off. I anticipate the patient should be discharged home soon. She can follow-up as an outpatient at the office.
--- NOTE | 2017-01-25 10:50 | Discharge Summary ---
Date of Encounter: 01/25/17 Time of Encounter: 10:43 - Discharge Diagnosis (1) Acute exacerbation of chronic obstructive pulmonary disease (COPD) Priority: Primary Status: Acute (2) Acute renal failure Priority: Secondary Status: Resolved Qualifiers: Acute renal failure type: unspecified Qualified Code(s): N17.9 - Acute kidney failure, unspecified (3) Diabetes mellitus type 2 in obese Priority: Secondary Status: Chronic (4) Hypertension Priority: Secondary Status: Chronic Qualifiers: Hypertension type: essential hypertension Qualified Code(s): I10 - Essential (primary) hypertension (5) Morbid obesity with BMI of 60.0-69.9, adult Priority: Secondary Status: Chronic (6) VITO (obstructive sleep apnea) Priority: Secondary Status: Chronic - Discharge Medications Prescriptions: Nitroglycerin 0.4 mg SL Q5MIN PRN #60 tab.subl PRN Reason: Chest Pain Albuterol Neb [AccuNeb] 1 vial IH 6XD PRN #10 inhsol PRN Reason: Wheezing Aspirin 81 mg PO DAILY #30 tab.chew Atorvastatin Calcium [Lipitor] 80 mg PO HS #30 tab Budesonide/Formoterol 160/4.5 [Symbicort 160/4.5] 2 puff IH BIDRESP #1 inhaler Diltiazem CD (24hr) [Cardizem CD] 120 mg PO DAILY #60 cap.er.24h Fluticasone/Vilanterol [Breo Ellipta 100-25 Mcg INH] 1 puff IH BID #20 blst.w.dev Gabapentin [Neurontin] 200 mg PO TID #40 capsule HYDROcodone/Acet 5/325 mg [[place] 5-325 mg] 1 tab PO Q8H PRN #14 tab PRN Reason: Pain Insulin Degludec [Tresiba Flextouch U-100] 60 unit SQ HS #10 insuln.pen Lidocaine Patch [Lidoderm 5% patch] 2 each TP Q24H #20 adh..patch Nicotine Patch [Nicoderm] 21 mg TD DAILY #7 patch.td24 Nystatin POWDER [Nystop] 1 appl TP TID #1 bottle Omeprazole [PriLOSEC] 20 mg PO DAILY #60 capsule.dr predniSONE [PredniSONE] 40 mg PO DAILY #3 tablet Home Medications: Albuterol Sulfate [Albuterol Inhaler] 2 puff IH Q4HR PRN 03/09/15 [History] Insulin LISPRO [Humalog Kwikpen U-100] 10 unit SQ TIDAC #100 mls 07/09/16 [Rx] Lisinopril [Zestril] 10 mg PO DAILY #30 tablet 07/09/16 [Rx] Oxygen 2 l .ROUTE AD 01/11/17 [History] Nicotine Patch [Nicoderm] 21 mg TD DAILY #30 patch.td24 01/15/17 [Rx] Albuterol Neb [AccuNeb] 1 vial IH 6XD PRN #10 inhsol 01/25/17 [Rx] Aspirin 81 mg PO DAILY #30 tab.chew 01/25/17 [Rx] Atorvastatin Calcium [Lipitor] 80 mg PO HS #30 tab 01/25/17 [Rx] Budesonide/Formoterol 160/4.5 [Symbicort 160/4.5] 2 puff IH BIDRESP #1 inhaler 01/25/17 [Rx] Diltiazem CD (24hr) [Cardizem CD] 120 mg PO DAILY #60 cap.er.24h 01/25/17 [Rx] Fluticasone/Vilanterol [Breo Ellipta 100-25 Mcg INH] 1 puff IH BID #20 blst.w.dev 01/25/17 [Rx] Gabapentin [Neurontin] 200 mg PO TID #40 capsule 01/25/17 [Rx] HYDROcodone/Acet 5/325 mg [[place] 5-325 mg] 1 tab PO Q8H PRN #14 tab 01/25/17 [Rx ] Insulin Degludec [Tresiba Flextouch U-100] 60 unit SQ HS #10 insuln.pen [Rx] Lidocaine Patch [Lidoderm 5% patch] 2 each TP Q24H #20 adh..patch 01/25/17 [Rx] Nicotine Patch [Nicoderm] 21 mg TD DAILY #7 patch.td24 01/25/17 [Rx] Nitroglycerin 0.4 mg SL Q5MIN PRN #60 tab.subl 01/25/17 [Rx] Nystatin POWDER [Nystop] 1 appl TP TID #1 bottle 01/25/17 [Rx] Omeprazole [PriLOSEC] 20 mg PO DAILY #60 capsule. 01/25/17 [Rx] predniSONE [PredniSONE] 40 mg PO DAILY #3 tablet 01/25/17 [Rx] Allergies/Adverse Reactions: Allergies No Known Allergies Allergy (Verified 01/20/17 01:06) Procedures/tests Complete & Pending: Procedures Performed prior 72 hours Category Date Time Status CT abd pelvis wo no iv no oral [CT] Stat Cat Scan 01/22/17 09:55 Completed Retroperitoneal Ultrasound - Complete [US Exams 01/23/17 17:00 Completed retroperitoneal comp] [US] Routine Date of admission: 01/20/17 15:16 Primary care physician: PCP NO Consults: 01/22/17 09:55 Consult to Nephrology [CONS] Routine Consulting Provider: [facility] BENJI Reason for Consult: CHANTELLE on CKD Time Notified: 09:56 Call Completed: Yes 01/22/17 09:56 Consult to Oncology Hematology [CONS] Routine Consulting Provider: Yovanny Kong Reason for Consult: Leukocytosis Call Completed: Yes Discharging clinician: Kevin Churchill Anticipated date of discharge: 01/25/17 - Patient Status Disposition: Home Health Service Condition: Good Functional capacity at discharge: uses cane/walker Overall status at discharge: patient is progressing back to baseline - Discharge Instructions Follow Up With: [facility] [place] [Outside] (has to meet with the satellite project site monitor before they will set her up with an appointment ) NO,PCP [Primary Care Provider] - Forms: ED Satisfaction Letter - Diet and Activity Activity: as per physical therapy, increase activity as tolerated Diet: diabetic diet, low fat, low cholesterol, low salt diet Hospital course: Ms. Boyd is a 46 year old female with a history of COPD who presented to the emergency room due to worsening shortness of breath. She was diagnosed with COPD and CHF exacerbation. She was given intravenous steroids and antibiotics and given diuresis. Her COPD exacerbation got better with therapy. However, she doubted acute kidney injury with the diuretics. Hence, the diuretics were held. Her renal function improved and her acute kidney injury resolved. As her COPD exacerbation and acute kidney injury have resolved, she has been deemed stable to be discharged home. The patient does not have a primary care physician. She is being set up for the [facility]. The patient requested refills on all her medications as she has not seen a primary care physician and many days and does not have any medications at home. The same have been provided to her. - Time Spent with Patient Total time spent providing and/or coordinating discharge services: Greater than 30 minutes (35) - Constitutional Vitals: Temp Pulse Resp BP Pulse Ox 98 F 76 18 128/69 95 01/25/17 07:50 01/25/17 07:50 01/25/17 08:02 01/25/17 07:50 01/25/17 08:02 General appearance: Present: cooperative, morbidly obese, pleasant, no acute distress, answers questions appropriately Exam: Gen.: Lying in bed. No acute distress. Chest: Clear to auscultation bilaterally. No adventitious sounds present. CVS: First and second heart sounds present. No murmurs, rubs or gallops. Abdomen: Soft, nontender, obese. Bowel sounds present. No hepatosplenomegaly.
--- NOTE | 2017-01-25 12:18 | Physician Discharge Referral ---
Home Health/Hosp Referral Info Transfer to: Home Health Attending Provider: Dr. Kevin Churchill Provider in Charge Post Discharge: PCP - Diagnosis (1) Acute exacerbation of chronic obstructive pulmonary disease (COPD) Priority: Primary Status: Acute (2) Acute renal failure Status: Resolved (3) Diabetes mellitus type 2 in obese Priority: Secondary Status: Chronic (4) Hypertension Priority: Secondary Status: Chronic (5) Morbid obesity with BMI of 60.0-69.9, adult Priority: Secondary Status: Chronic (6) VITO (obstructive sleep apnea) Priority: Secondary Status: Chronic - Respiratory Orders Oxygen / L per min (2L PRN) Smoking Cessation: Smoking cessation has been advised. For more information, call the [place] Tobacco Quit Line at 0-382-YTZS-NOW. - Diet/Nutrition Diet/Nutrition Orders: No Added Salt (RM), No Concentrated Sweets - Activity Activity Orders: Up ad jagdeep, Ambulate - Services Needed Following services are medically necessary services: Physical Therapy - Transfer Medications Prescriptions: Nitroglycerin 0.4 mg SL Q5MIN PRN #60 tab.subl PRN Reason: Chest Pain Albuterol Neb [AccuNeb] 1 vial IH 6XD PRN #10 inhsol PRN Reason: Wheezing Aspirin 81 mg PO DAILY #30 tab.chew Atorvastatin Calcium [Lipitor] 80 mg PO HS #30 tab Budesonide/Formoterol 160/4.5 [Symbicort 160/4.5] 2 puff IH BIDRESP #1 inhaler Diltiazem CD (24hr) [Cardizem CD] 120 mg PO DAILY #60 cap.er.24h Fluticasone/Vilanterol [Breo Ellipta 100-25 Mcg INH] 1 puff IH BID #20 blst.w.dev Gabapentin [Neurontin] 200 mg PO TID #40 capsule HYDROcodone/Acet 5/325 mg [[place] 5-325 mg] 1 tab PO Q8H PRN #14 tab PRN Reason: Pain Insulin Degludec [Tresiba Flextouch U-100] 60 unit SQ HS #10 insuln.pen Lidocaine Patch [Lidoderm 5% patch] 2 each TP Q24H #20 adh..patch Nicotine Patch [Nicoderm] 21 mg TD DAILY #7 patch.td24 Nystatin POWDER [Nystop] 1 appl TP TID #1 bottle Omeprazole [PriLOSEC] 20 mg PO DAILY #60 capsule. predniSONE [PredniSONE] 40 mg PO DAILY #3 tablet Home Medications: Albuterol Sulfate [Albuterol Inhaler] 2 puff IH Q4HR PRN 03/09/15 [History] Insulin LISPRO [Humalog Kwikpen U-100] 10 unit SQ TIDAC #100 mls 07/09/16 [Rx] Lisinopril [Zestril] 10 mg PO DAILY #30 tablet 07/09/16 [Rx] Oxygen 2 l .ROUTE AD 01/11/17 [History] Nicotine Patch [Nicoderm] 21 mg TD DAILY #30 patch.td24 01/15/17 [Rx] Albuterol Neb [AccuNeb] 1 vial IH 6XD PRN #10 inhsol 01/25/17 [Rx] Aspirin 81 mg PO DAILY #30 tab.chew 01/25/17 [Rx] Atorvastatin Calcium [Lipitor] 80 mg PO HS #30 tab 01/25/17 [Rx] Budesonide/Formoterol 160/4.5 [Symbicort 160/4.5] 2 puff IH BIDRESP #1 inhaler 01/25/17 [Rx] Diltiazem CD (24hr) [Cardizem CD] 120 mg PO DAILY #60 cap.er.24h 01/25/17 [Rx] Fluticasone/Vilanterol [Breo Ellipta 100-25 Mcg INH] 1 puff IH BID #20 blst.w.dev 01/25/17 [Rx] Gabapentin [Neurontin] 200 mg PO TID #40 capsule 01/25/17 [Rx] HYDROcodone/Acet 5/325 mg [[place] 5-325 mg] 1 tab PO Q8H PRN #14 tab 01/25/17 [Rx ] Insulin Degludec [Tresiba Flextouch U-100] 60 unit SQ HS #10 insuln.pen [Rx] Lidocaine Patch [Lidoderm 5% patch] 2 each TP Q24H #20 adh..patch 01/25/17 [Rx] Nicotine Patch [Nicoderm] 21 mg TD DAILY #7 patch.td24 01/25/17 [Rx] Nitroglycerin 0.4 mg SL Q5MIN PRN #60 tab.subl 01/25/17 [Rx] Nystatin POWDER [Nystop] 1 appl TP TID #1 bottle 01/25/17 [Rx] Omeprazole [PriLOSEC] 20 mg PO DAILY #60 capsule. 01/25/17 [Rx] predniSONE [PredniSONE] 40 mg PO DAILY #3 tablet 01/25/17 [Rx] Allergies/Adverse Reactions: Allergies No Known Allergies Allergy (Verified 01/20/17 01:06) Certification: Further, I certify that my clinical findings support that this patient is homebound (i.e. absences from home require considerable and taxing effort and are for medical reasons or yazidism services or infrequently or short duration when for other reasons) because: Homebound Reason: Patient requires assistance of a person or device to safely leave home, Leaving home requires considerable and taxing effort due to condition Attestation: My signature below is to certify that this patient is under my care and that I, or nurse practitioner, or a physician's assistant customer service manager working with me, has a face-to -face encounter with this patient.
[2017-01-25 13:02] LABS: Total Volume 24 Hour,Urine 2.98 Liters (0.60-1.60)
[2017-01-25 13:41] LABS: Creatinine 24 Hour,Urine 1.31 g/day (0.71-1.65)
[2017-01-25 17:25] LABS: Alpha 2 Globulin (PEP) 1.17 g/dL (0.48-1.05); Beta Globulin (PEP) 0.88 g/dL (0.48-1.10)
[2017-01-26 23:35] LABS: Urine Collection Duration RANDOM hr; Urine Collection Volume RANDOM mL
[2017-01-27 08:07] LABS: IFE Reflexed NOT DONE
[2017-01-28 08:43] LABS: BCR-ABL1 Specimen Source NOT SPECIFIED
== END 2017-01-25 16:27 | disposition home health service (06) | DRG 140 ==
LOC: 2NENU 00:52 → EMEROO 00:52 → SUATTDRO 04:02 → 2NENU 04:47 → SUATTDRO 15:16
PROVIDERS: ADMIT Internal Medicine; ATTEND Internal Medicine Sleep Medicine

== ENCOUNTER 2017-02-10 23:26 | Observation (INO) ==
[2017-02-10] MEDS ORDERED: Ipratropium/Albuterol Neb 3 ML IH ONE (23:41)
[2017-02-10] MEDS ORDERED: methylPREDNISolone 125 MG/2 ML VIAL IVP ONE (23:41)
--- NOTE | 2017-02-10 23:41 | Emergency Department Note ---
Addendum entered and electronically signed by Pedro Dobbins DO 02/11/17 02:13: EKG reviewed and interpreted by me, sinus tachycardia ventricular rate of 101 NV 137 QRS [address] segment elevations or depressions. An unchanged from previous EKG Original Note: Disposition Clinical Impression: Severe sepsis, Cellulitis and abscess of left leg Disposition: Admitted As Inpatient Condition: Fair Time of Disposition: 02:10 SOB HPI - General Chief Complaint: ED Shortness of Breath/Dyspnea Stated Complaint: "SIABELLA/Celulitis on L Leg" Time Seen by Provider: 02/10/17 23:33 Source: patient Limitations: no limitations Nursing Notes Reviewed: Yes Vital Signs Reviewed: Yes - History of Present Illness 46-year-old female is here hypertension, hyperlipidemia, diabetes, recently discharged for COPD exacerbation, respiratory failure, he is complaining of shortness of breath, and left leg pain she states that she thinks that her left leg is more painful, 4 out of 10 and aching pain. She states that she feels more short of breath. Patient reports shortness of breath, states that she has been having some wheezing, denies productive cough. Denies real chest pain or abdominal pain or dysuria. Reports that she has had intermittent fevers and chills. She was discharged with home health, but she states that she is not able to be seen until March 01 with a home health provider so she has not gotten anything set up, she does have some oxygen when necessary at night, but thinks that she needs oxygen all the time. Pt Subjective Complaint: shortness of breath Onset (ago): day(s) Severity: moderate Consistency/Duration: intermittent Improves with: oxygen Known history of: COPD, congestive heart failure, diabetes Associated symptoms: Reports: fever, cough, wheezing. Denies: chest pain, pain with inspiration Treatment prior to arrival: oxygen Cough present: Yes Cough Description: Voluntary Cough Frequency: Intermittent Sputum Amount: Scant - Related Data Comment: PRN Home oxygen amount: 2 liters Home Medications Medication Instructions Recorded Confirmed Albuterol Sulfate [Albuterol 2 puff IH Q4HR PRN 03/09/15 01/20/17 Inhaler] Oxygen 2 l .ROUTE AD 01/11/17 01/20/17 Previous Rx's Medication Instructions Recorded Insulin LISPRO [Humalog Kwikpen 10 unit SQ TIDAC #100 mls 07/09/16 U-100] Lisinopril [Zestril] 10 mg PO DAILY #30 tablet 07/09/16 Nicotine Patch [Nicoderm] 21 mg TD DAILY #30 patch.td24 01/15/17 Albuterol Neb [AccuNeb] 1 vial IH 6XD PRN #10 inhsol 01/25/17 Aspirin 81 mg PO DAILY #30 tab.chew 01/25/17 Atorvastatin Calcium [Lipitor] 80 mg PO HS #30 tab 01/25/17 Budesonide/Formoterol 160/4.5 2 puff IH BIDRESP #1 inhaler 01/25/17 [Symbicort 160/4.5] Diltiazem CD (24hr) [Cardizem CD] 120 mg PO DAILY #60 cap.er.24h 01/25/17 Fluticasone/Vilanterol [Breo 1 puff IH BID #20 blst.w.dev 01/25/17 Ellipta 100-25 Mcg INH] Gabapentin [Neurontin] 200 mg PO TID #40 capsule 01/25/17 HYDROcodone/Acet 5/325 mg [[place] 1 tab PO Q8H PRN #14 tab 01/25/17 5-325 mg] Insulin Degludec [Tresiba 60 unit SQ HS #10 insuln.pen 01/25/17 Flextouch U-100] Lidocaine Patch [Lidoderm 5% patch] 2 each TP Q24H #20 adh..patch 01/25/17 Nicotine Patch [Nicoderm] 21 mg TD DAILY #7 patch.td24 01/25/17 Nitroglycerin 0.4 mg SL Q5MIN PRN #60 tab.subl 01/25/17 Nystatin POWDER [Nystop] 1 appl TP TID #1 bottle 01/25/17 Omeprazole [PriLOSEC] 20 mg PO DAILY #60 capsule. 01/25/17 predniSONE [PredniSONE] 40 mg PO DAILY #3 tablet 01/25/17 Allergies Allergy/AdvReac Type Severity Reaction Status Date / Time No Known Allergies Allergy Verified 01/20/17 01:06 All systems ED: reviewed and negative except as stated. Review of Systems: As Per HPI Constitutional: Reports: fever, chills Eyes: Denies: eye pain ENT ED: Denies: ear pain Cardiovascular: Denies: chest pain Respiratory: Reports: as per HPI, cough, dyspnea Gastrointestinal: Denies: abdominal pain, nausea Genitourinary: Denies: urgency, dysuria, frequency Neurological: Denies: headache, weakness Endocrine: Denies: fatigue Past Medical History - Past Medical History Attestation: Yes The following information was validated with the patient. Source: patient Medical history: Reports: arthritis, asthma, CHF, COPD, coronary artery disease , DVT, diabetes, fibromyalgia, GERD, hyperlipidemia, hypertension, migraine, osteoporosis, pulmonary embolus, renal disease, syncope, other Surgical history: Reports: , cholecystectomy, other Psychiatric history: Reports: anxiety, bipolar, depression, other DATA PROCESSING SPECIALIST history: Reports: no DATA PROCESSING SPECIALIST history - Social History Smoking Status: Current every day smoker Smokeless Tobacco Status: No Alcohol use: Reports: none Drug use: Reports: marijuana Physical Exam Constitutional: short of breath middle-aged female appears older than stated age, tachycardic Eyes: PERRLA, sclera anicteric ENT & Mouth: NCAT, normal external ears bilaterally, MMM Neck: normal inspection, neck is supple Resp: Diminished breath sounds bilaterally at the bases CV: Tachycardic GI: normal inspection, soft, no guarding or rigidity Back: normal inspection, no tenderness to palpation Neuro: A&O3, CNII-XII grossly intact, LAW MSK: no gross deformities, normal ROM UE and LE Skin: Edematous left foot no evidence of crepitus, or fluctuance. - General Limitations: no limitations General appearance: alert, in no apparent distress Course Course Narrative: 46-year-old female with shortness of breath, concern for COPD exacerbation versus pneumonia, we will get chest pain workup including CBC BMP troponin, lactate blood cultures and reassess. - Reevaluation(s) Reevaluation #1: Patient's lactate came back at 2.5, white count was 13, heart rate was greater than 100, meets criteria for sepsis, concern for skin versus urinary pathology, we will treat with bank and Zosyn at this time. Plan to admit for severe sepsis , ordered 30 mL per kg bolus which is 4500ml Time: 01:09 Reevaluation #2: Admitted to the hospitalist, Dr. Valero, patient gave additional history that she had a pulmonary embolus, so we did make the decision, with a hospitalist at bedside to start the patient on heparin, and defer imaging VQ scan for tomorrow possible ultrasound, to exclude thromboembolism, given the patient's CKD. Most likely her left leg swelling and cellulitis, likely explanation for leukocytosis and lactic acidosis, cannot entirely exclude pulmonary embolus or DVT given her history. Time: 02:10 Vital Signs Temperature 97.9 F 02/10/17 23:27 Pulse Rate 107 02/10/17 23:27 Respiratory Rate 24 02/10/17 23:27 Blood Pressure 130/79 02/10/17 23:27 O2 Sat by Pulse Oximetry 99 02/10/17 23:27 Temperature 98.2 F 02/11/17 03:07 Pulse Rate 84 02/11/17 03:07 Respiratory Rate 15 02/11/17 04:45 Blood Pressure 129/79 02/11/17 03:07 O2 Sat by Pulse Oximetry 96 02/11/17 04:45 Oxygen Delivery Oxygen Delivery Room Air Shortness of Breath/Dyspnea - [facility] Narrative Medical decision making narrative: 46-year-old female with shortness of breath and left leg swelling, likely severe sepsis with left leg cellulitis, IV fluids, lactate, empiric antibiotics and blood cultures, severe sepsis treatment and reassessment was done additionally patient was heparinized for concern for possible PE as well admitted to hospitalist in stable condition. Severe Sepsis/Septic Shock Re-Evaluation: I reassessed the patient's volume status and tissue perfusion, performing a full cardiopulmonary exam, skin examination, peripheral pulses evaluation, I assessed their vital signs and capillary refill, and based on my findings found that the patient was volume responsive to their 30mL/kg crystalloid bolus. - Differential Diagnosis Likely: acute exacerbation of chronic obstructive airways disease, congestive heart failure, pneumonia, asthma with exacerbation - Medical Records Medical records reviewed: Yes I reviewed the patient's medical records. - Lab Data Lab results reviewed: Yes I reviewed the patient's lab results. Result diagrams: 02/10/17 23:58 02/10/17 23:58 Lab Results 02/10/17 02/10/17 02/10/17 Range/Units 23:58 23:58 23:58 WBC 13.4 H (4.3-11.1) K/mcL RBC 4.24 (3.82-4.97) M/mcL Hgb 12.3 (11.5-15.4) g/dL Hct 39.2 (35.3-44.9) % MCV 92.5 (83.0-100.0) fL MCH 29.0 (28.0-33.3) pg MCHC 31.4 L (31.6-35.5) g/dL RDW 16.0 H (11.5-14.5) % Plt Count 401 H (140-400) K/mcL MPV 10.9 (9.4-12.4) fL Immature Gran % 0.7 (0-4) % Seg Neutrophils % 75.0 % Lymphocytes % 17.3 % Monocytes % 6.4 % Eosinophils % 0.4 % Basophils % 0.2 % Neutrophils # 10.0 H (1.6-8.9) K/mcL Lymphocytes # 2.3 (0.6-4.6) K/mcL Monocytes # 0.9 (0.0-1.3) K/mcL Eosinophils # 0.1 (0.0-0.6) K/mcL Basophils # 0.0 (0.0-0.2) K/mcL Immature Plt Fraction 4.8 (1.1-6.1) % PT (9.4-12.1) Seconds INR APTT (26.0-36.0) Seconds D-Dimer (0-500) ng/mLFEU Sodium 133 L (136-145) mEq/L Potassium 4.3 (3.5-4.5) mEq/L Chloride 106 (98-109) mEq/L Carbon Dioxide 16 L (19-29) mEq/L BUN 16 (7-20) mg/dL Creatinine 1.64 H (0.57-1.11) mg/dL Est GFR ( Amer) 41 L (> 60) Est GFR (Non-Af Amer) 34 L (> 60) BUN/Creatinine Ratio 10 (6-26) Glucose 365 H (70-99) mg/dL Calculated Osmolality 292 (280-300) Lactic Acid 2.5 H (0.5-2.2) mmol/L Calcium 8.7 (8.6-10.8) mg/dL Phosphorus 3.2 (2.3-4.7) mg/dL Magnesium 1.7 (1.6-2.6) mg/dL Total Bilirubin 0.5 (0.2-1.2) mg/dL Direct Bilirubin 0.2 (0.0-0.5) mg/dL Indirect Bilirubin 0.3 (0.0-1.2) mg/dL AST 18 (5-34) Units/L ALT 23 (0-55) Units/L Alkaline Phosphatase 142 H (38-126) Units/L Troponin I (0-0.03) ng/mL B-Natriuretic Peptide (0-100) pg/mL Serum Total Protein 6.8 (6.0-8.3) g/dL Albumin 2.9 L (3.5-5.0) g/dL Globulin 3.9 H (2.4-3.5) g/dL Albumin/Globulin Ratio 0.7 L (1.1-2.2) Lipase 123 H (8-78) Units/L 02/10/17 02/10/17 02/11/17 Range/Units 23:58 23:58 01:16 WBC (4.3-11.1) K/mcL RBC (3.82-4.97) M/mcL Hgb (11.5-15.4) g/dL Hct (35.3-44.9) % MCV (83.0-100.0) fL MCH (28.0-33.3) pg MCHC (31.6-35.5) g/dL RDW (11.5-14.5) % Plt Count (140-400) K/mcL MPV (9.4-12.4) fL Immature Gran % (0-4) % Seg Neutrophils % % Lymphocytes % % Monocytes % % Eosinophils % % Basophils % % Neutrophils # (1.6-8.9) K/mcL Lymphocytes # (0.6-4.6) K/mcL Monocytes # (0.0-1.3) K/mcL Eosinophils # (0.0-0.6) K/mcL Basophils # (0.0-0.2) K/mcL Immature Plt Fraction (1.1-6.1) % PT (9.4-12.1) Seconds INR APTT (26.0-36.0) Seconds D-Dimer (0-500) ng/mLFEU Sodium (136-145) mEq/L Potassium (3.5-4.5) mEq/L Chloride (98-109) mEq/L Carbon Dioxide (19-29) mEq/L BUN (7-20) mg/dL Creatinine (0.57-1.11) mg/dL Est GFR ( Amer) (> 60) Est GFR (Non-Af Amer) (> 60) BUN/Creatinine Ratio (6-26) Glucose (70-99) mg/dL Calculated Osmolality (280-300) Lactic Acid 1.8 (0.5-2.2) mmol/L Calcium (8.6-10.8) mg/dL Phosphorus (2.3-4.7) mg/dL Magnesium (1.6-2.6) mg/dL Total Bilirubin (0.2-1.2) mg/dL Direct Bilirubin (0.0-0.5) mg/dL Indirect Bilirubin (0.0-1.2) mg/dL AST (5-34) Units/L ALT (0-55) Units/L Alkaline Phosphatase (38-126) Units/L Troponin I 0.00 (0-0.03) ng/mL B-Natriuretic Peptide < 10 (0-100) pg/mL Serum Total Protein (6.0-8.3) g/dL Albumin (3.5-5.0) g/dL Globulin (2.4-3.5) g/dL Albumin/Globulin Ratio (1.1-2.2) Lipase (8-78) Units/L //17 Range/Units 01:16 WBC (4.3-11.1) K/mcL RBC (3.82-4.97) M/mcL Hgb (11.5-15.4) g/dL Hct (35.3-44.9) % MCV (83.0-100.0) fL MCH (28.0-33.3) pg MCHC (31.6-35.5) g/dL RDW (11.5-14.5) % Plt Count (140-400) K/mcL MPV (9.4-12.4) fL Immature Gran % (0-4) % Seg Neutrophils % % Lymphocytes % % Monocytes % % Eosinophils % % Basophils % % Neutrophils # (1.6-8.9) K/mcL Lymphocytes # (0.6-4.6) K/mcL Monocytes # (0.0-1.3) K/mcL Eosinophils # (0.0-0.6) K/mcL Basophils # (0.0-0.2) K/mcL Immature Plt Fraction (1.1-6.1) % PT 11.6 (9.4-12.1) Seconds INR 1.1 APTT 27.6 (26.0-36.0) Seconds D-Dimer 366 (0-500) ng/mLFEU Sodium (136-145) mEq/L Potassium (3.5-4.5) mEq/L Chloride (98-109) mEq/L Carbon Dioxide (19-29) mEq/L BUN (7-20) mg/dL Creatinine (0.57-1.11) mg/dL Est GFR ( Amer) (> 60) Est GFR (Non-Af Amer) (> 60) BUN/Creatinine Ratio (6-26) Glucose (70-99) mg/dL Calculated Osmolality (280-300) Lactic Acid (0.5-2.2) mmol/L Calcium (8.6-10.8) mg/dL Phosphorus (2.3-4.7) mg/dL Magnesium (1.6-2.6) mg/dL Total Bilirubin (0.2-1.2) mg/dL Direct Bilirubin (0.0-0.5) mg/dL Indirect Bilirubin (0.0-1.2) mg/dL AST (5-34) Units/L ALT (0-55) Units/L Alkaline Phosphatase (38-126) Units/L Troponin I (0-0.03) ng/mL B-Natriuretic Peptide (0-100) pg/mL Serum Total Protein (6.0-8.3) g/dL Albumin (3.5-5.0) g/dL Globulin (2.4-3.5) g/dL Albumin/Globulin Ratio (1.1-2.2) Lipase (8-78) Units/L - Radiology Data Radiology results reviewed: Yes I reviewed the patient's radiology results. Chest X-Ray 02/10/17 23:41 IMPRESSION: Negative portable study. D/ / Justine Eid Cha, MD / Justine Eid Cha, MD Interpreting Provider: Justine Eid Cha, MD - EKG Data EKG attestation: Yes I reviewed and interpreted this EKG. EKG shows normal: Reports: sinus rhythm Attestation Statement - Attestation Attestation: I examined this patient and my medical decision-making was reviewed with the Resident Physician. I agree with the documented findings, disposition and treatment plan as described except to the extent set forth below. Patient presents to the emergency department with a chief complaint of left leg pain. Patient states she has cellulitis and it is getting worse. States she also has some shortness of breath. On examination she has some mild erythema to the left proximal carl. Mild swelling to the leg. Lungs with expiratory wheezing. Plan. She is given duo nebs and steroids. Patient was cellulitis of the leg. Meets sepsis criteria. D-dimer was ordered secondary to tachycardia and shortness of breath. It is negative. She is given IV fluids and antibiotics. Admitted to medicine. 30 minutes of critical care exclusive of separately billable procedures.
[2017-02-11 00:07] LABS: Basophils % 0.2 %; Eosinophils # 0.1 K/mcL (0.0-0.6); Eosinophils % 0.4 %; Hematocrit 39.2 % (35.3-44.9); Hemoglobin 12.3 g/dL (11.5-15.4); Immature Granulocytes % 0.7 % (0-4); Immature Platelets 4.8 % (1.1-6.1); Lymphocytes # 2.3 K/mcL (0.6-4.6); Lymphocytes % 17.3 %; Mean Corpuscular HGB Conc 31.4 g/dL (31.6-35.5); Mean Corpuscular Volume 92.5 fL (83.0-100.0); Mean Platelet Volume 10.9 fL (9.4-12.4); Monocytes # 0.9 K/mcL (0.0-1.3); Monocytes % 6.4 %; Platelet Count 401 K/mcL (140-400); Red Blood Count 4.24 M/mcL (3.82-4.97)
[2017-02-11 00:20] LABS: Calcium 8.7 mg/dL (8.6-10.8); Potassium 4.3 mEq/L (3.5-4.5)
[2017-02-11] MEDS ORDERED: *HR* FentaNYL (PF) 100 MCG/2 ML VIAL IVP ONE (00:55)
[2017-02-11] MEDS ORDERED: Ondansetron 4 MG/2 ML VIAL IVP ONE (00:55)
[2017-02-11] MEDS ORDERED: Piperacillin/Tazobactam 3.375 GM in D5% in Water (Mini-Bag+) 100 ML IVPB ONE (01:02)
[2017-02-11] MEDS ORDERED: Vancomycin 2,000 MG in D5% in Water 500 ML IVPB ONE (01:04)
[2017-02-11] MEDS ORDERED: SODIUM CHLORIDE IVC SCH (01:15)
[2017-02-11 01:27] LABS: INR 1.1; Prothrombin Time 11.6 Seconds (9.4-12.1)
[2017-02-11 01:29] LABS: Albumin 2.9 g/dL (3.5-5.0); Albumin/Globulin Ratio 0.7 (1.1-2.2); Bilirubin,Direct 0.2 mg/dL (0.0-0.5); Bilirubin,Indirect 0.3 mg/dL (0.0-1.2); Bilirubin,Total 0.5 mg/dL (0.2-1.2); Globulin 3.9 g/dL (2.4-3.5); Magnesium 1.7 mg/dL (1.6-2.6); Phosphorous 3.2 mg/dL (2.3-4.7); Total Protein 6.8 g/dL (6.0-8.3)
[2017-02-11 01:30] LABS: Activated Partial Thrombo Time 27.6 Seconds (26.0-36.0)
[2017-02-11] MEDS ORDERED: 0.9 % Sodium Chloride 500 ML IV.SOLN IVC ONE (01:55)
[2017-02-11] MEDS ORDERED: *HR* Heparin 5,000 UNIT/ML VIAL IVP PRN ×2 (02:03)
[2017-02-11] MEDS ORDERED: SODIUM CHLORIDE IV ONE (02:15)
[2017-02-11] MEDS ORDERED: Heparin 25,000 UNIT/500 ML D5W 25,000 UNIT/500 ML MLS IVC SCH (02:15)
--- NOTE | 2017-02-11 02:51 | Internal Med History&Physical ---
<Jp Wakefield - Last Filed: 02/11/17 03:35> Date of Encounter: 02/11/17 Time of Encounter: 02:48 Assessment and Plan (1) Severe sepsis Current visit: Yes Status: Acute Likely secondary to left leg cellulitis as chest x-ray was clear and there are no signs of UTI/intra-abdominal infection Lactic acid initially 2.5 but repeat was 1.8 after fluid boluses were administered Will continue with IVF hydration according to 30 ml/kg equalling 4.5 L Blood cultures collected, await result sensitivities; she was started on Vanc/ Zosyn in ED (2) Cellulitis of left leg Current visit: Yes Status: Acute She describes new erythema and swelling in her upper left leg that which is especially tender Patient was started on Vanc/Zosyn in ED, which we will continue here Blood cultures have been collected, await results prior to de-escalation of antibiotics (3) Acute exacerbation of chronic obstructive pulmonary disease (COPD) Current visit: No Status: Acute Patient does have wheezing upon auscultation along with subjective increased shortness of breath She was given 125 mg solumedrol in the ED and wheezing improved Certainly at risk for OHS/VITO given her body habitus, but she is not on CPAP at home; she would benefit from outpatient sleep study Will support with supplemental oxygen steroids, and breathing treatments (4) Leukocytosis Current visit: No Status: Chronic Patient has had chronic elevation in white count, but her levels are lower than previously She has been on steroids recently due to COPD exacerbation, but she is concerned about leukemia I explained to patient she may speak her PCP upon discharge for possible referral to oncology for outpatient workup Qualifiers: Leukocytosis type: unspecified Qualified Code(s): D72.829 - Elevated white blood cell count, unspecified (5) CKD (chronic kidney disease) stage 3, GFR 30-59 ml/min Current visit: No Status: Chronic Her Cr is near her baseline upon admission Will aggressively hydrate in setting of sepsis Her proteinuria seems to be the cause of her chronic lower extremity edema Monitor Cr and electrolytes, avoid nephrotoxic agents (6) Hypertension Current visit: No Status: Chronic Blood pressures well controlled since admission Will continue home doses of anti-hypertensives Qualifiers: Hypertension type: essential hypertension Qualified Code(s): I10 - Essential (primary) hypertension (7) Insulin dependent diabetes mellitus Current visit: No Status: Chronic Initial glucose over 300 so will start on high dose SSI ACHS accuchecks in addition to 22 units of basal insulin Last A1c checked 1 month ago was 8.2 showing inadequate control, but patient states she recently had her Lantus switched to Tradjenta (8) DVT prophylaxis Current visit: No Status: Acute Heparin 5000 units BID Internal Medicine - H&P: HPI Chief complaint: shortness of breath, leg pain Admitted From: Home Plans for Post Hospital Care: Home (with home health) History of present illness: Ms. Boyd is a 46 year old female who presents with shortness of breath and left leg pain. She states she felt short of breath when she was at home at rest earlier yesterday. She does have a history of COPD and has baseline shortness of breath especially with exertion, but states this is worse than usual. She also reports having mild cough that is nonproductive in addition to nausea and chills. Patient does have inhalers and also uses 2 L of oxygen as needed at nighttime. Regarding her left leg, she states that she noticed increased pain starting 2 days ago and has noticed some swelling during this time as well. She does admit to having chronic swelling of her lower extremities but is not on any diuretics. Of note, patient was recently admitted here 3 weeks ago for COPD exacerbation and received a short course of steroids upon discharge. She was also recommended to start home health, but this has not been set up. Patient also has history of DVT and completed 6 months of warfarin. Patient denies any chest pain, vomiting, diarrhea, constipation, fevers. Past Med Surg Social Fam HX - Past Medical History Medical history: arthritis, asthma, CHF, COPD, coronary artery disease, DVT, diabetes, fibromyalgia, GERD, hyperlipidemia, hypertension, migraine, osteoporosis, pulmonary embolus, renal disease, syncope, other Psychiatric history: anxiety, bipolar, depression, other - Past Surgical History Surgical History: , cholecystectomy, other - Social History Smoking Status: Current every day smoker Smokeless Tobacco Status: No Alcohol use: none Drug use: marijuana - Family History Father Living Status: Hx Family Cancer: Yes (testicular, brain) Mother Family Member Ethnicity: Non- Living Status: Hx Family Cardiac Disorders: Yes (SC) Hx Family Endocrine Disorder: Yes (DM) Brother Living Status: Still Living Hx Family Cardiac Disorders: Yes (SC, CAD, HTN, HLD) Internal Medicine - H&P: Meds Albuterol Sulfate [Albuterol Inhaler] 2 puff IH Q4HR PRN 03/09/15 [History] Insulin LISPRO [Humalog Kwikpen U-100] 10 unit SQ TIDAC #100 mls 07/09/16 [Rx] Lisinopril [Zestril] 10 mg PO DAILY #30 tablet 07/09/16 [Rx] Oxygen 2 l .ROUTE AD 01/11/17 [History] Nicotine Patch [Nicoderm] 21 mg TD DAILY #30 patch.td24 01/15/17 [Rx] Albuterol Neb [AccuNeb] 1 vial IH 6XD PRN #10 inhsol 01/25/17 [Rx] Aspirin 81 mg PO DAILY #30 tab.chew 01/25/17 [Rx] Atorvastatin Calcium [Lipitor] 80 mg PO HS #30 tab 01/25/17 [Rx] Budesonide/Formoterol 160/4.5 [Symbicort 160/4.5] 2 puff IH BIDRESP #1 inhaler 01/25/17 [Rx] Diltiazem CD (24hr) [Cardizem CD] 120 mg PO DAILY #60 cap.er.24h 01/25/17 [Rx] Fluticasone/Vilanterol [Breo Ellipta 100-25 Mcg INH] 1 puff IH BID #20 blst.w.dev 01/25/17 [Rx] Gabapentin [Neurontin] 200 mg PO TID #40 capsule 01/25/17 [Rx] HYDROcodone/Acet 5/325 mg [[place] 5-325 mg] 1 tab PO Q8H PRN #14 tab 01/25/17 [Rx ] Insulin Degludec [Tresiba Flextouch U-100] 60 unit SQ HS #10 insuln.pen [Rx] Lidocaine Patch [Lidoderm 5% patch] 2 each TP Q24H #20 adh..patch 01/25/17 [Rx] Nicotine Patch [Nicoderm] 21 mg TD DAILY #7 patch.td24 01/25/17 [Rx] Nitroglycerin 0.4 mg SL Q5MIN PRN #60 tab.subl 01/25/17 [Rx] Nystatin POWDER [Nystop] 1 appl TP TID #1 bottle 01/25/17 [Rx] Omeprazole [PriLOSEC] 20 mg PO DAILY #60 capsule. 01/25/17 [Rx] predniSONE [PredniSONE] 40 mg PO DAILY #3 tablet 01/25/17 [Rx] Allergies No Known Allergies Allergy (Verified 01/20/17 01:06) All Systems PM: A 10-system review of systems was performed and is negative for pertinent findings except as documented above in the HPI. - Constitutional Constitutional: chills, weakness, no fever(s), no night sweats - EENT Eyes: no change in vision, no discharge, no pain, no photophobia Ears: no ear discharge, no ear pain, no tinnitus Nose, mouth and throat: no dysphagia, no nasal discharge, no neck pain, no sore throat - Cardiovascular Cardiovascular ROS IM: dyspnea, dyspnea on exertion, edema, no chest pain, no diaphoresis, no lightheadedness, no palpitations, no syncope - Respiratory Respiratory: cough, dyspnea, no wheezing, no excessive phlegm production, no change in phlegm color, no pain with cough - Gastrointestinal Gastrointestinal: nausea, no abdominal pain, no diarrhea, no hematemesis, no hematochezia, no melena, no vomiting - Genitourinary Genitourinary: urinary frequency (increased), no change in urinary stream, no dysuria, no flank pain, no hematuria - Musculoskeletal Musculoskeletal ROS IM: no numbness, no tingling - Integumentary Integumentary IM: no rash, no unusual bruising - Neurological Neurological ROS: no confusion, no convulsions, no focal weakness, no numbness, no tingling, no tremor(s) - Hematologic/Lymphatic Hematologic/Lymphatic: no easy bruising - Constitutional Vitals: Temp Pulse Resp BP Pulse Ox 97.9 F 88 18 130/90 100 02/10/17 23:27 02/11/17 01:41 02/11/17 02:25 02/11/17 02:25 02/11/17 01:41 General appearance: Present: cooperative, morbidly obese, pleasant, no acute distress, answers questions appropriately - Head Head exam: Present: atraumatic, normocephalic - Eye Eye exam: Present: PERRL, conjuntiva pink, sclera anicteric - Neck Neck exam general surgery: Present: supple, trachea midline. Absent: lymphadenopathy - Respiratory Respiratory exam: Present: decreased breath sounds, wheezes. Absent: accessory muscle use, rales, rhonchi - Cardiovascular Cardiovascular exam: Present: RRR, +S1, +S2. Absent: diastolic murmur, gallop, rubs, systolic murmur - GI/Abdominal GI/Abdominal exam: Present: normal bowel sounds, soft, no peritoneal signs. Absent: distended, tenderness - Extremities Exam Extremities exam: Present: pedal edema (left side, non-pitting), tenderness, warm, radial pulses palpable and symetrical. Absent: calf tenderness, cyanotic - Neurological Exam Neurological exam: Present: alert, no focal deficits. Absent: facial droop, speech deficit - Skin Skin exam: Present: dry, erythema (left leg), intact Internal Med - H&P Results - Labs CBC & Chem 7: 02/10/17 23:58 02/10/17 23:58 <Shaan Levy - Last Filed: 02/11/17 06:28> Date of Encounter: 02/11/17 Internal Medicine - H&P: HPI History of present illness: Ms. Boyd is a 46 year old female All Systems PM: A 10-system review of systems was performed and is negative for pertinent findings except as documented above in the HPI. - Constitutional Vitals: Temp Pulse Resp BP Pulse Ox 98.2 F 84 15 129/79 96 02/11/17 03:07 02/11/17 03:07 02/11/17 04:45 02/11/17 03:07 02/11/17 04:45 Internal Med - H&P Results - Labs CBC & Chem 7: 02/10/17 23:58 02/10/17 23:58 Labs: Urine 02/11/17 Range/Units 04:50 Urine Color Dark Yellow (Yellow) Urine Clarity Clear (Clear) Urine pH 5.5 (5.0-8.0) pH Units Ur Specific [place] > 1.030 H (1.010-1.025) Urine Protein 100 H (Neg-Trace) mg/dL Urine Glucose (UA) >=1000 H (Normal) mg/dL - Attending Attestation I examined this patient and my medical decision-making was reviewed with the Resident Physician, Dr. Wakefield. I agree with the documented findings, disposition and treatment plan as described except to the extent set forth below. Per my physical examination: Patient is awake alert oriented, anxious. Heart is regular. Lung auscultation reveals bilateral expiratory wheezing. We will admit the patient for lower extremity cellulitis and COPD. We will treat with broad-spectrum IV antibiotics, IV fluids, inhaled bronchodilators and steroids.
[2017-02-11] MEDS ORDERED: Naloxone 0.4 MG/ML INJ IVP PRN (03:30)
[2017-02-11] MEDS ORDERED: Dextrose Gel 15 GM PO PRN ×4 (03:30→11:19)
[2017-02-11] MEDS ORDERED: Acetaminophen 325 MG TABLET PO PRN (03:30)
[2017-02-11] MEDS ORDERED: *HR* Dextrose 50 % in Water (Syg) 50 ML SYRINGE IVP PRN ×2 (03:30→11:19)
[2017-02-11] MEDS ORDERED: Ondansetron 4 MG/2 ML VIAL IVP PRN (03:30)
[2017-02-11] MEDS ORDERED: D5% in Water 1,000 ML IVC PRN ×2 (03:30→11:19)
[2017-02-11] MEDS ORDERED: 0.9 % Sodium Chloride 1,000 ML IVC SCH (03:30)
[2017-02-11] MEDS ORDERED: Vancomycin 2,000 MG in D5% in Water 250 ML IVPB SCH (04:00)
[2017-02-11] MEDS: *HR* HYDROcodone/Acet 5/325 mg TABLET PO PRN ×4 (04:23→20:25)
[2017-02-11] MEDS: Ipratropium/Albuterol Neb 3 ML IH SCH ×4 (04:45→21:33)
[2017-02-11 05:52] LABS: Bilirubin,Urine Small (Negative); Blood,Urine Negative (Negative); Clarity,Urine Clear (Clear); Color,Urine Dark Yellow (Yellow); Glucose,Urine (UA) >=1000 mg/dL (Normal); Ketones,Urine Trace mg/dL (Negative); Leukocyte Esterase,Urine Negative (Negative); Nitrite,Urine Negative (Negative); PH,Urine 5.5 pH Units (5.0-8.0); Protein,Urine 100 mg/dL (Neg-Trace); Specific Gravity,Urine > 1.030 (1.010-1.025); Urobilinogen,Urine Normal (Normal)
[2017-02-11 05:55] LABS: Bacteria,Urine None Seen per hpf (None-Few); Hyaline Casts,Urine None Seen per lpf (None-Few); Squamous Epithelial Cell,Urine Many per lpf (None-Few); WBC,Urine 0-3 per hpf (0-3)
[2017-02-11] MEDS: *HR* Heparin 5,000 UNIT/ML VIAL SQ SCH ×2 (05:55→17:02)
[2017-02-11] MEDS ORDERED: MethylPREDNISolone 40 MG/ML VIAL IVP SCH (08:00)
[2017-02-11] MEDS: Nicotine 21 MG PATCH.TD24 TD SCH (08:45)
[2017-02-11] MEDS: Gabapentin 100 MG CAPSULE PO SCH ×3 (08:45→20:25)
[2017-02-11] MEDS: Aspirin 81 MG TAB.CHEW PO SCH (08:45)
[2017-02-11] MEDS: Insulin LISPRO 300 UNITS/3 ML VIAL SQ SCH ×6 (08:45→16:26)
[2017-02-11] MEDS: Piperacillin/Tazobactam 3.375 GM in D5% in Water (Mini-Bag+) 100 ML IVPB SCH ×2 (08:46→16:17)
[2017-02-11] MEDS: Diltiazem CD (24hr) 120 MG CAPSULE PO SCH (08:46)
[2017-02-11] MEDS ORDERED: Insulin DETEMIR 100 UNIT/ML X5UNITS SQ SCH ×3 (09:00→21:00)
[2017-02-11 09:38] LABS: Basophils % 0.1 %; Hematocrit 37.5 % (35.3-44.9); Hemoglobin 11.7 g/dL (11.5-15.4); Immature Granulocytes % 0.5 % (0-4); Lymphocytes # 0.6 K/mcL (0.6-4.6); Lymphocytes % 8.4 %; Mean Corpuscular HGB Conc 31.2 g/dL (31.6-35.5); Mean Corpuscular Hemoglobin 28.7 pg (28.0-33.3); Mean Corpuscular Volume 91.9 fL (83.0-100.0); Monocytes # 0.1 K/mcL (0.0-1.3); Monocytes % 0.8 %; Neutrophils # 6.9 K/mcL (1.6-8.9); Platelet Count 427 K/mcL (140-400); Red Blood Count 4.08 M/mcL (3.82-4.97); Segmented Neutrophils % 90.2 %
[2017-02-11 09:50] LABS: Calcium 8.9 mg/dL (8.6-10.8)
[2017-02-11] MEDS ORDERED: Insulin LISPRO 300 UNITS/3 ML VIAL SQ ONE ×2 (10:04→11:15)
--- NOTE | 2017-02-11 10:16 | Event Note ---
Date of Encounter: 02/11/17 Time of Encounter: 10:15 46-year-old female with history of hypertension, diabetes, coronary artery disease, CKD, fibromyalgia, is admitted with worsening pain and redness in left leg along with some shortness of breath and not feeling well. Patient was noted to have mild cellulitis of left leg and mild acute exacerbation of COPD. Patient seen and examined at bedside. Reports improvement in left leg pain and redness, dyspnea. Chest-S1, S2 heard, regular rate. Lungs with decreased air entry bilaterally and scattered rhonchi at bilateral posterior bases Left lower extremity-minimal erythema and tenderness over the anterior leg. 2+ edema bilaterally, left more than right Labs reviewed-improved leukocytosis and lactic acidosis. Serum sodium 129, potassium 5, random blood glucose 559, with no evidence of metabolic acidosis. SIRS/lactic acidosis with Left leg cellulitis-could be severe sepsis due to cellulitis, although very mild at this time. Improving. We will change antibiotics to IV Unasyn, hold IV hydration. Left lower extremity elevation and supportive care. Pain control with when necessary IV morphine and oral Percocet. Acute exacerbation of COPD-improving. continue IV steroids, to taper down as tolerated. Continue bronchodilators, inhaled corticosteroids and supplemental oxygen. Steroid-induced hyperglycemia-no DKA/HHS state. We will start basal insulin, increase sliding scale insulin and and nutritional insulin. Accu-Chek blood glucose monitoring, monitor closely. Check hemoglobin A1c.
[2017-02-11] MEDS: MethylPREDNISolone 40 MG/ML VIAL IVP SCH ×2 (10:23→17:02)
[2017-02-11] MEDS: Budesonide/Formoterol 160/4.5 MDI IH SCH ×2 (10:23→21:33)
[2017-02-11] MEDS: Vancomycin 1,500 MG in D5% in Water 250 ML IVPB SCH (16:17)
[2017-02-11] MEDS ORDERED: Insulin LISPRO 300 UNITS/3 ML VIAL SQ SCH ×2 (21:00)
[2017-02-12] MEDS: Piperacillin/Tazobactam 3.375 GM in D5% in Water (Mini-Bag+) 100 ML IVPB SCH ×2 (00:17→08:55)
[2017-02-12] MEDS: *HR* HYDROcodone/Acet 5/325 mg TABLET PO PRN ×4 (00:25→14:50)
[2017-02-12] MEDS: Ipratropium/Albuterol Neb 3 ML IH SCH ×2 (03:56→10:57)
[2017-02-12] MEDS: Vancomycin 1,500 MG in D5% in Water 250 ML IVPB SCH (04:10)
[2017-02-12] MEDS: *HR* Heparin 5,000 UNIT/ML VIAL SQ SCH (05:16)
[2017-02-12] MEDS: MethylPREDNISolone 40 MG/ML VIAL IVP SCH (05:16)
[2017-02-12 05:22] LABS: Basophils % 0.1 %; Hematocrit 35.4 % (35.3-44.9); Immature Granulocytes % 0.9 % (0-4); Lymphocytes % 5.8 %; Mean Corpuscular HGB Conc 31.1 g/dL (31.6-35.5); Mean Corpuscular Hemoglobin 28.7 pg (28.0-33.3); Mean Corpuscular Volume 92.4 fL (83.0-100.0); Mean Platelet Volume 11.3 fL (9.4-12.4); Monocytes # 0.3 K/mcL (0.0-1.3); Monocytes % 1.8 %; Platelet Count 442 K/mcL (140-400); Red Blood Count 3.83 M/mcL (3.82-4.97); Red Cell Distribution Width 16.3 % (11.5-14.5); Segmented Neutrophils % 91.4 %
[2017-02-12 05:25] LABS: Neutrophils # 15.5 K/mcL (1.6-8.9)
[2017-02-12 05:41] LABS: Calcium 8.8 mg/dL (8.6-10.8)
[2017-02-12 05:52] LABS: Potassium 4.4 mEq/L (3.5-4.5)
[2017-02-12 07:56] VITALS: BP 107/67
[2017-02-12] MEDS ORDERED: Insulin DETEMIR 100 UNIT/ML X5UNITS SQ SCH (08:27)
[2017-02-12] MEDS: Insulin LISPRO 300 UNITS/3 ML VIAL SQ SCH ×4 (08:52→12:50)
[2017-02-12] MEDS: Aspirin 81 MG TAB.CHEW PO SCH (08:56)
[2017-02-12] MEDS: Gabapentin 100 MG CAPSULE PO SCH ×2 (08:56→14:51)
[2017-02-12] MEDS: Nicotine 21 MG PATCH.TD24 TD SCH (08:56)
[2017-02-12] MEDS: Diltiazem CD (24hr) 120 MG CAPSULE PO SCH (08:56)
[2017-02-12] MEDS ORDERED: predniSONE 20 MG TABLET PO SCH (09:00)
--- NOTE | 2017-02-12 09:53 | Discharge Summary ---
Date of Encounter: 02/13/17 Time of Encounter: 09:15 - Discharge Diagnosis (1) Acute exacerbation of chronic obstructive pulmonary disease (COPD) Priority: Primary Status: Acute (2) Cellulitis of left leg Priority: Primary Status: Acute (3) CAD (coronary artery disease) Priority: Secondary Status: Chronic Qualifiers: Coronary Disease-Associated Artery/Lesion type: [place] artery [place] vs. transplanted heart: [place] heart Associated angina: without angina Qualified Code(s): I25.10 - Atherosclerotic heart disease of [place] coronary artery without angina pectoris (4) VITO (obstructive sleep apnea) Priority: Secondary Status: Chronic (5) CKD (chronic kidney disease) stage 3, GFR 30-59 ml/min Priority: Secondary Status: Chronic (6) Anxiety and depression Priority: Secondary Status: Chronic (7) Uncontrolled diabetes mellitus Priority: Secondary Status: Chronic Qualifiers: Diabetes mellitus type: type 2 Diabetes mellitus complication status: with kidney complications Diabetes mellitus complication detail: with chronic kidney disease Diabetes mellitus continuous churn buttermaker insulin use: with continuous churn buttermaker use Chronic kidney disease stage: stage 3 (moderate) Qualified Code(s): E11.22 - Type 2 diabetes mellitus with diabetic chronic kidney disease; E11.65 - Type 2 diabetes mellitus with hyperglycemia; N18.3 - Chronic kidney disease, stage 3 ( moderate); Z79.4 - buttermaker continuous churn (current) use of insulin (8) Hypertension Priority: Secondary Status: Chronic Qualifiers: Hypertension type: essential hypertension Qualified Code(s): I10 - Essential (primary) hypertension (9) Morbid obesity Priority: Secondary Status: Chronic - Discharge Medications Prescriptions: Amoxicillin/Clavulanate [Augmentin] 500 mg PO BIDWM #10 tablet Aspirin 81 mg PO DAILY #15 tab.chew Gabapentin [Neurontin] 300 mg PO TID #45 Insulin Degludec [Tresiba Flextouch U-100] 60 unit SQ HS #10 insuln.pen Omeprazole [PriLOSEC] 20 mg PO DAILY #15 capsule. predniSONE [PredniSONE] 40 mg PO DAILY #6 tab Home Medications: Albuterol Sulfate [Albuterol Inhaler] 2 puff IH Q4HR PRN 03/09/15 [History] Lisinopril [Zestril] 10 mg PO DAILY #30 tablet 07/09/16 [Rx] Oxygen 2 l .ROUTE QPM 01/11/17 [History] Albuterol Neb [AccuNeb] 1 vial IH 6XD PRN #10 inhsol 01/25/17 [Rx] Atorvastatin Calcium [Lipitor] 80 mg PO HS #30 tab 01/25/17 [Rx] Budesonide/Formoterol 160/4.5 [Symbicort 160/4.5] 2 puff IH BIDRESP #1 inhaler 01/25/17 [Rx] Diltiazem CD (24hr) [Cardizem CD] 120 mg PO DAILY #60 cap.er.24h 01/25/17 [Rx] Fluticasone/Vilanterol [Breo Ellipta 100-25 Mcg INH] 1 puff IH BID #20 blst.w.dev 01/25/17 [Rx] Lidocaine Patch [Lidoderm 5% patch] 2 each TP Q24H #20 adh..patch 01/25/17 [Rx] Nitroglycerin 0.4 mg SL Q5MIN PRN #60 tab.subl 01/25/17 [Rx] Insulin LISPRO [Humalog Kwikpen U-100] 20 unit SQ TIDAC 02/11/17 [History] Amoxicillin/Clavulanate [Augmentin] 500 mg PO BIDWM #10 tablet 02/12/17 [Rx] Aspirin 81 mg PO DAILY #15 tab.chew 02/12/17 [Rx] Gabapentin [Neurontin] 300 mg PO TID #45 02/12/17 [Rx] HYDROcodone/Acet 5/325 mg [[place] 5-325 mg] 1 tab PO Q8H PRN #15 tab 02/12/17 [Rx ] Insulin Degludec [Tresiba Flextouch U-100] 60 unit SQ HS #10 insuln.pen [Rx] Omeprazole [PriLOSEC] 20 mg PO DAILY #15 capsule.dr 02/12/17 [Rx] predniSONE [PredniSONE] 40 mg PO DAILY #6 tab 02/12/17 [Rx] Allergies/Adverse Reactions: Allergies No Known Allergies Allergy (Verified 01/20/17 01:06) Date of admission: 02/11/17 01:49 Primary care physician: PCP NONE Consults: 02/11/17 02:31 Consult to Human Resource Adviser [CONS] Routine Reason for SW Consult: home [facility] Discharging clinician: Caitlin Brenner Anticipated date of discharge: 02/12/17 - Patient Status Disposition: Home, Self-Care Condition: Fair Functional capacity at discharge: independent ambulation Overall status at discharge: patient is progressing back to baseline - Discharge Instructions Instructions: Heart Failure (DC), Chronic Obstructive Pulmonary Disease (DC) Follow Up With: NONE,PCP [Primary Care Provider] - Additional Instructions: F/up with PCP in [place] as scheduled - Diet and Activity Activity: resume usual activities as tolerated Diet: diabetic diet, low fat, low cholesterol, low salt diet, other (renal diet) Hospital course: Ms. Boyd is a 46 year old female with multiple medical problems including uncontrolled diabetes, was admitted with left leg pain and redness and shortness of breath. She was noted to have mild left leg cellulitis and was started on IV antibiotics, with significant improvement. She was also treated for mild acute exacerbation of COPD with IV steroids, IV antibiotics, bronchodilators and supplemental oxygen. Patient's respiratory symptoms significantly improved today and she is noted to be saturating well on room air. Patient also had hyperglycemia since admission and was noted to have uncontrolled blood sugars during this hospitalization. She is noted to be noncompliant to diet and medications and currently has no primary care provider but her first visit to new PCP will be on March 01 according to previous discharge notes. She was also not eligible to be set up for home health services/visiting nurse services during her previous admission as she had no PCP. Patient and her were educated regarding the need for appropriate blood sugar control and lifestyle modifications like weight loss, diabetic diet have been discussed. Patient is eager to spend time with her granddaughter and would like to be discharged today. She was encouraged to follow up with her primary care provider and to continue blood glucose monitoring, compliance to insulin at home. - Time Spent with Patient Total time spent providing and/or coordinating discharge services: Greater than 30 minutes (45 min) - Constitutional Vitals: Temp Pulse Resp BP Pulse Ox 97.5 F L 82 16 107/67 94 02/12/17 07:53 02/12/17 07:53 02/12/17 07:53 02/12/17 07:53 02/12/17 07:53 General appearance: Present: cooperative, A&O X 3, morbidly obese, answers questions appropriately - Respiratory Respiratory exam: Present: CTAB. Absent: accessory muscle use, rales, rhonchi, wheezes - Cardiovascular Cardiovascular exam: Present: RRR, +S1, +S2. Absent: diastolic murmur, gallop, rubs, systolic murmur
[2017-02-12] MEDS: Budesonide/Formoterol 160/4.5 MDI IH SCH (10:57)
[2017-02-12] MEDS ORDERED: Aminoglycoside Consult 1 EACH MC ONE (14:59)
--- NOTE | 2017-02-12 18:43 | Electrocardiograph Report ---
[place] [id number] Test Date: 2017-02-10 Pat Name: Yeny Boyd Department: 105 Room: 3A33 Gender: F Title Investigator: NIRAV : 1970 Requested By: Pedro Dobbins Order Number: [id number] Reading MD: Adán Owen MD Measurements Intervals [place] Rate: 101 P: 49 SC: 137 QRS: 13 QRSD: 96 T: 29 QT: 331 QTc: 389 Interpretive Statements SINUS TACHYCARDIA MINIMAL VOLTAGE CRITERIA FOR LVH, CONSIDER NORMAL VARIANT BASELINE ARTIFACT Electronically Signed On 02-12-2017 18:42:04 EDT by Adán Owen MD
== END 2017-02-12 15:00 | disposition home or self-care (01) ==
LOC: EMEROO 23:26 → 3ANU 23:26
PROVIDERS: ADMIT Internal Medicine Hematology & Oncology; ATTEND Internal Medicine

== ENCOUNTER 2018-01-08 21:05 | Observation (INO) ==
[2018-01-08] MEDS ORDERED: Ipratropium/Albuterol Neb 3 ML IH ONE (21:29)
[2018-01-08] MEDS ORDERED: methylPREDNISolone 125 MG/2 ML VIAL IVP ONE (21:29)
[2018-01-08 21:45] LABS: Basophils # 0.1 K/mcL (0.0-0.2); Basophils % 0.4 %; Eosinophils # 0.1 K/mcL (0.0-0.6); Eosinophils % 0.2 %; Lymphocytes # 3.9 K/mcL (0.6-4.6); Lymphocytes % 19.3 %; Mean Corpuscular HGB Conc 31.7 g/dL (31.6-35.5); Mean Corpuscular Hemoglobin 27.3 pg (28.0-33.3); Mean Platelet Volume 10.5 fL (9.4-12.4); Monocytes # 1.1 K/mcL (0.0-1.3); Monocytes % 5.6 %; Neutrophils # 14.5 K/mcL (1.6-8.9); Platelet Count 490 K/mcL (140-400); Red Blood Count 4.77 M/mcL (3.82-4.97); Red Cell Distribution Width 16.8 % (11.5-14.5); Segmented Neutrophils % 72.5 %
--- NOTE | 2018-01-08 22:10 | Emergency Department Note ---
Disposition Clinical Impression: COPD exacerbation Disposition: Admitted As Inpatient Condition: Fair Time of Disposition: 00:06 SOB HPI - General Chief Complaint: ED Shortness of Breath/Dyspnea Stated Complaint: letty Time Seen by Provider: 01/08/18 21:07 Source: patient Mode of arrival: ambulatory Limitations: no limitations Nursing Notes Reviewed: Yes Vital Signs Reviewed: Yes - History of Present Illness Patient is a 47-year-old female who presents to [facility] ED with a chief complaint of difficulty breathing. States she has a history of COPD and CHF. Her symptoms have been worsening over the last 5 days. She has also had nausea vomiting and diarrhea. Denies any chest pain. Has also been complaining of abdominal pain with the diarrhea. No problems with urination. Patient at baseline is on 2 L nasal cannula. She uses breathing treatments at home and states she has been using it [id number] still getting worse. She is not able to take more than a few steps without getting severely short of breath. Pt Subjective Complaint: shortness of breath Onset (ago): day(s) (5) Context: recent illness Severity: moderate Consistency/Duration: gradually worsening Improves with: rest Worsens with: exertion Known history of: COPD Associated symptoms: Reports: cough, nausea/vomiting. Denies: chest pain, wheezing, abdominal pain Treatment prior to arrival: none Cough present: Yes Cough Description: Involuntary, Non-Productive Sputum production: No - Related Data Home oxygen amount: 2 liters Home Medications Medication Instructions Recorded Confirmed Oxygen 2 l NS QPM PRN 01/11/17 01/09/18 Insulin LISPRO [Humalog Kwikpen 30 unit SQ TIDAC 02/11/17 01/09/18 U-100] Insulin Degludec [Tresiba 80 unit SQ HS 03/10/17 01/09/18 Flextouch U-100] Albuterol Sulfate [Albuterol 2 puff IH Q4H PRN 01/09/18 01/09/18 Inhaler] DULoxetine [Cymbalta] 30 mg PO DAILY 01/09/18 01/09/18 Lidocaine Patch [Lidoderm 5% patch] 2 patch TP Q24H PRN 01/09/18 01/09/18 Lisinopril [Zestril] 10 mg PO DAILY 01/09/18 01/09/18 Nystatin POWDER [Nystop] 1 appl TP BID 01/09/18 01/09/18 Paroxetine [Paxil] 20 mg PO DAILY 01/09/18 01/09/18 Polyethylene Glycol 3350 [MiraLAX 1 scoop PO DAILY 01/09/18 01/09/18 Powder Bulk 17.9 Oz] Previous Rx's Medication Instructions Recorded Albuterol Neb [AccuNeb] 1 vial IH 6XD PRN #10 inhsol 01/25/17 Atorvastatin Calcium [Lipitor] 80 mg PO HS #30 tab 01/25/17 Budesonide/Formoterol 160/4.5 2 puff IH BIDRESP #1 inhaler 01/25/17 [Symbicort 160/4.5] Diltiazem CD (24hr) [Cardizem CD] 120 mg PO DAILY #60 cap.er.24h 01/25/17 Nitroglycerin 0.4 mg SL Q5MIN PRN #60 tab.subl 01/25/17 Aspirin 81 mg PO DAILY #15 tab.chew 02/12/17 Gabapentin [Neurontin] 300 mg PO TID #45 02/12/17 Omeprazole [PriLOSEC] 20 mg PO DAILY #15 capsule. 02/12/17 Allergies Allergy/AdvReac Type Severity Reaction Status Date / Time No Known Allergies Allergy Verified 01/09/18 10:21 All systems ED: reviewed and negative except as stated. Past Medical History - Past Medical History Attestation: Yes The following information was validated with the patient. Source: patient Medical history: Reports: arthritis, asthma, CHF, COPD, coronary artery disease , DVT, diabetes, fibromyalgia, GERD, hyperlipidemia, hypertension, migraine, osteoporosis, pulmonary embolus, renal disease, syncope, other Surgical history: Reports: , cholecystectomy, other Psychiatric history: Reports: anxiety, bipolar, depression, other SENIOR IOS SOFTWARE ENGINEER history: Reports: no SENIOR IOS SOFTWARE ENGINEER history - Social History Smoking Status: Current every day smoker Smokeless Tobacco Status: No Alcohol use: Reports: none Drug use: Reports: marijuana Physical Exam - General Limitations: no limitations General appearance: alert, in no apparent distress - Head Head exam: atraumatic, normocephalic, normal inspection - Eye Eye exam: Present: normal appearance, PERRL, EOMI - ENT ENT exam: normal exam, normal oropharynx, mucous membranes moist - Neck Neck exam: Present: normal inspection, full ROM, trachea midline - Chest Chest inspection: Present: normal inspection, symmetric chest wall rise - Respiratory Respiratory exam: Present: wheezes (generalized) - Cardiovascular Cardiovascular exam: Present: regular rate, normal rhythm, normal heart sounds - Abdominal Exam Abdominal exam: Present: soft, Non-Tender. Absent: tenderness, distention, guarding, rebound, rigidity - Extremities Exam Extremities exam: Present: normal inspection, full ROM. Absent: tenderness, pedal edema - Back Exam Back exam: Present: normal inspection, full ROM. Absent: tenderness - Neurological Exam Neurological exam: Present: alert, oriented X3 - Psychiatric Psychiatric exam: Present: normal affect, normal mood - Skin Skin exam: Present: warm, dry, intact, normal color Course Course Narrative: Patient seen and examined. Concern for COPD exacerbation. Short of breath over the last 5 days. Triple DuoNeb ordered along with 125 mg of Solu-Medrol. Cardiopulmonary workup initiated. - Reevaluation(s) Reevaluation #1: Labwork unremarkable. Chest x-ray clear. We will admit for COPD exacerbation since patient cannot tolerate taking more than a few steps without getting extremely short of breath. I discussed with the hospitalist who has accepted patient for admission. Time: 00:04 Vital Signs Temperature 98.1 F 01/08/18 21:14 Pulse Rate 98 01/08/18 21:14 Respiratory Rate 20 01/08/18 21:14 Blood Pressure 105/41 01/08/18 21:14 O2 Sat by Pulse Oximetry 98 01/08/18 21:14 Temperature 97.4 F L 01/10/18 04:30 Pulse Rate 91 01/10/18 04:30 Respiratory Rate 18 01/10/18 04:30 Blood Pressure 110/49 01/10/18 04:30 O2 Sat by Pulse Oximetry 94 01/10/18 04:30 Oxygen Delivery Oxygen Delivery Nasal Cannula Shortness of Breath/Dyspnea - Medical Records Medical records reviewed: Yes I reviewed the patient's medical records. - Lab Data Lab results reviewed: Yes I reviewed the patient's lab results. Result diagrams: 01/09/18 02:13 01/09/18 02:13 Lab Results 01/08/18 01/08/18 01/08/18 Range/Units 21:12 21:12 21:12 WBC 20.0 H (4.3-11.1) K/mcL RBC 4.77 (3.82-4.97) M/mcL Hgb 13.0 (11.5-15.4) g/dL Hct 41.0 (35.3-44.9) % MCV 86.0 (83.0-100.0) fL MCH 27.3 L (28.0-33.3) pg MCHC 31.7 (31.6-35.5) g/dL RDW 16.8 H (11.5-14.5) % Plt Count 490 H (140-400) K/mcL MPV 10.5 (9.4-12.4) fL Immature Gran % 2.0 (0-4) % Seg Neutrophils % 72.5 % Lymphocytes % 19.3 % Monocytes % 5.6 % Eosinophils % 0.2 % Basophils % 0.4 % Neutrophils # 14.5 H (1.6-8.9) K/mcL Lymphocytes # 3.9 (0.6-4.6) K/mcL Monocytes # 1.1 (0.0-1.3) K/mcL Eosinophils # 0.1 (0.0-0.6) K/mcL Basophils # 0.1 (0.0-0.2) K/mcL Sodium 133 L (136-145) mEq/L Potassium 4.4 (3.5-5.1) mEq/L Chloride 103 (98-107) mEq/L Carbon Dioxide 19 L (23-29) mEq/L BUN 20 (6-20) mg/dL Creatinine 1.74 H (0.60-1.20) mg/dL Est GFR ( Amer) 38 L (> 60) Est GFR (Non-Af Amer) 31 L (> 60) BUN/Creatinine Ratio 11 (6-26) Glucose 231 H (70-105) mg/dL Calculated Osmolality 286 (280-300) Lactic Acid (0.5-2.2) mmol/L Calcium 8.9 (8.6-10.3) mg/dL Troponin I < 0.03 (< 0.04) ng/mL B-Natriuretic Peptide 30 (Less than 100) pg/mL 01/08/18 Range/Units 21:45 WBC (4.3-11.1) K/mcL RBC (3.82-4.97) M/mcL Hgb (11.5-15.4) g/dL Hct (35.3-44.9) % MCV (83.0-100.0) fL MCH (28.0-33.3) pg MCHC (31.6-35.5) g/dL RDW (11.5-14.5) % Plt Count (140-400) K/mcL MPV (9.4-12.4) fL Immature Gran % (0-4) % Seg Neutrophils % % Lymphocytes % % Monocytes % % Eosinophils % % Basophils % % Neutrophils # (1.6-8.9) K/mcL Lymphocytes # (0.6-4.6) K/mcL Monocytes # (0.0-1.3) K/mcL Eosinophils # (0.0-0.6) K/mcL Basophils # (0.0-0.2) K/mcL Sodium (136-145) mEq/L Potassium (3.5-5.1) mEq/L Chloride (98-107) mEq/L Carbon Dioxide (23-29) mEq/L BUN (6-20) mg/dL Creatinine (0.60-1.20) mg/dL Est GFR ( Amer) (> 60) Est GFR (Non-Af Amer) (> 60) BUN/Creatinine Ratio (6-26) Glucose (70-105) mg/dL Calculated Osmolality (280-300) Lactic Acid 2.0 (0.5-2.2) mmol/L Calcium (8.6-10.3) mg/dL Troponin I (< 0.04) ng/mL B-Natriuretic Peptide (Less than 100) pg/mL - Radiology Data Radiology results reviewed: Yes I reviewed the patient's radiology results. Chest X-Ray 01/08/18 21:29 IMPRESSION: No significant findings in the chest. D/ / Ryan Case MD / Ryan Case MD Interpreting Provider: Ryan Case MD - EKG Data EKG attestation: Yes I reviewed and interpreted this EKG. EKG results narrative: EKG done at 2124 shows normal sinus rhythm with a rate of [address] elevation or depression. Normal axis. Attestation Statement - Attestation Attestation: I examined this patient and my medical decision-making was reviewed with the Resident Physician. I agree with the documented findings, disposition and treatment plan as described except to the extent set forth below. COPD exacerbation, will admit for further management and workup. Patient failed ambulation with ongoing hypoxia.
[2018-01-08 22:14] LABS: BUN/Creatinine Ratio 11 (6-26); Blood Urea Nitrogen 20 mg/dL (6-20); Calcium 8.9 mg/dL (8.6-10.3); Carbon Dioxide 19 mEq/L (23-29); Chloride 103 mEq/L (98-107); Glucose 231 mg/dL (70-105); Osmolality,Calculated 286 (280-300); Potassium 4.4 mEq/L (3.5-5.1); Sodium 133 mEq/L (136-145); Troponin I < 0.03 ng/mL (< 0.04); eGFR For African Americans 38 (> 60); eGFR For Non-African Americans 31 (> 60)
[2018-01-08] MEDS ORDERED: levoFLOXacin 500 MG TABLET PO ONE (23:14)
--- NOTE | 2018-01-09 01:49 | Internal Med History&Physical ---
Date of Encounter: 01/09/18 Time of Encounter: 05:42 Internal Medicine - H&P: HPI History of present illness: Ms. Boyd is a 47 year old female who presents to [facility] ED with a chief complaint of difficulty breathing. States she has a history of COPD and CHF. Her symptoms have been worsening over the last 5 days. She has also had nausea vomiting and diarrhea. Denies any chest pain. Has also been complaining of abdominal pain with the diarrhea. No problems with urination. Patient at baseline is on 2 L nasal cannula. She uses breathing treatments at home and states she has been using it [id number] still getting worse. She is not able to take more than a few steps without getting severely short of breath. Past Med Surg Social Fam HX - Past Medical History Medical history: arthritis, asthma, CHF, COPD, coronary artery disease, DVT, diabetes, fibromyalgia, GERD, hyperlipidemia, hypertension, migraine, osteoporosis, pulmonary embolus, renal disease, syncope, other Additional medical history: Pt states they may have leukemia Psychiatric history: anxiety, bipolar, depression, other - Past Surgical History Surgical History: , cholecystectomy, other Additional surgical history: exp gallbladder sx, hernia repair x3, tumor removed from ovary - Social History Smoking Status: Current every day smoker Smokeless Tobacco Status: No Alcohol use: none Drug use: marijuana - Family History Father Living Status: Hx Family Cardiac Disorders: No Hx Family Cancer: Yes (testicular, brain) Mother Family Member Ethnicity: Non- Living Status: Hx Family Cardiac Disorders: Yes ([place]) Hx Family Endocrine Disorder: Yes (DM) Brother Living Status: Still Living Hx Family Cardiac Disorders: Yes ([place], CAD, HTN, HLD) Internal Medicine - H&P: Meds Albuterol Sulfate [Albuterol Inhaler] 2 puff IH Q4HR PRN 03/09/15 [History] Lisinopril [Zestril] 10 mg PO DAILY #30 tablet 07/09/16 [Rx] Oxygen 2 l .ROUTE QPM PRN 01/11/17 [History] Albuterol Neb [AccuNeb] 1 vial IH 6XD PRN #10 inhsol 01/25/17 [Rx] Atorvastatin Calcium [Lipitor] 80 mg PO HS #30 tab 01/25/17 [Rx] Budesonide/Formoterol 160/4.5 [Symbicort 160/4.5] 2 puff IH BIDRESP #1 inhaler 01/25/17 [Rx] Diltiazem CD (24hr) [Cardizem CD] 120 mg PO DAILY #60 cap.er.24h 01/25/17 [Rx] Nitroglycerin 0.4 mg SL Q5MIN PRN #60 tab.subl 01/25/17 [Rx] Insulin LISPRO [Humalog Kwikpen U-100] 30 unit SQ TIDAC 02/11/17 [History] Aspirin 81 mg PO DAILY #15 tab.chew 02/12/17 [Rx] Gabapentin [Neurontin] 300 mg PO TID #45 02/12/17 [Rx] Omeprazole [PriLOSEC] 20 mg PO DAILY #15 capsule.dr 02/12/17 [Rx] Insulin Degludec [Tresiba Flextouch U-100] 80 unit SQ HS 03/10/17 [History] Lidocaine Patch [Lidoderm 5% patch] 2 each TP Q24H PRN 01/09/18 [History] 3 Allergy/AdvReac Type Severity Reaction Status Date / Time No Known Allergies Allergy Verified 07/06/17 17:09 All Systems PM: A 10-system review of systems was performed and is negative for pertinent findings except as documented above in the HPI. - Constitutional Vitals: Temp Pulse Resp BP Pulse Ox 98.8 F 91 20 112/63 96 01/09/18 00:42 01/09/18 00:42 01/09/18 00:42 01/09/18 00:42 01/09/18 00:42 Internal Med - H&P Results - Labs CBC & Chem 7: 01/09/18 02:13 01/09/18 02:13 - Assessment and plan (1) COPD exacerbation Current Visit: No Status: Acute Assessment and plan: - SOB due to *Asthma exacerbation caused by URTI, allergen exposure, medication nonocompliance PLAN: - Aerosols q 4 hr and PRN SOB - Solu-medrol 40 mg IV q 6 hr - O2 to keep SpO2 higher than 92% (SpO higher than 95% if CAD) - CBCD, BMP in AM - Sputum Gram stain, C+S - Robitussin 10 cc PO q 4 hr - Tylenol 650 mg PO q 4-6 hr PRN pain/fever - Heparin 5000 U SQ BID - Home meds - check the list and restart (2) Type 2 diabetes mellitus Current Visit: No Status: Chronic 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
[2018-01-09] MEDS ORDERED: Naloxone 0.4 MG/ML INJ IVP PRN (01:53)
[2018-01-09] MEDS ORDERED: Acetaminophen 325 MG TABLET PO PRN (01:53)
[2018-01-09] MEDS ORDERED: Albuterol Neb 1.25 MG/3 ML VIAL IH PRN (02:00)
[2018-01-09] MEDS ORDERED: Nitroglycerin 0.4 MG TAB.SUBL SL PRN (02:00)
[2018-01-09] MEDS: *HR* HYDROcodone/Acet 5/325 mg TABLET PO PRN ×4 (02:18→22:03)
[2018-01-09 02:30] LABS: Basophils % 0.2 %; Hematocrit 37.5 % (35.3-44.9); Immature Granulocytes % 2.3 % (0-4); Lymphocytes # 1.1 K/mcL (0.6-4.6); Lymphocytes % 6.1 %; Mean Corpuscular Hemoglobin 27.3 pg (28.0-33.3); Mean Corpuscular Volume 85.2 fL (83.0-100.0); Mean Platelet Volume 10.6 fL (9.4-12.4); Monocytes # 0.1 K/mcL (0.0-1.3); Monocytes % 0.6 %; Neutrophils # 16.1 K/mcL (1.6-8.9); Platelet Count 409 K/mcL (140-400); Red Cell Distribution Width 16.7 % (11.5-14.5); Segmented Neutrophils % 90.8 %
[2018-01-09 02:46] LABS: INR 1.1; Prothrombin Time 12.4 Seconds (9.4-12.1)
[2018-01-09 02:53] LABS: Albumin 3.2 g/dL (3.5-5.7); Albumin/Globulin Ratio 0.7 (1.1-2.2); Bilirubin,Total 0.3 mg/dL (0.3-1.0); Calcium 8.9 mg/dL (8.6-10.3); Chol/HDL Ratio 4.4 (0-4.9); Globulin 4.3 g/dL (2.4-3.5); Magnesium 1.9 mg/dL (1.6-2.6); Phosphorous 2.8 mg/dL (2.7-4.5); Potassium 4.5 mEq/L (3.5-5.1); Total Protein 7.5 g/dL (6.4-8.9)
[2018-01-09 02:59] LABS: Platelet Estimate Normal (Normal)
[2018-01-09] MEDS ORDERED: D5% in Water 1,000 ML IVC PRN (05:50)
[2018-01-09] MEDS ORDERED: Dextrose Gel 15 GM/37.5 ML TUBE PO PRN ×2 (05:50)
[2018-01-09] MEDS ORDERED: *HR* Dextrose 50 % in Water (Syg) 50 ML SYRINGE IVP PRN (05:50)
[2018-01-09] MEDS ORDERED: Insulin LISPRO 300 UNITS/3 ML VIAL SQ SCH ×3 (07:30→21:00)
[2018-01-09] MEDS: Budesonide/Formoterol 160/4.5 MDI IH SCH ×2 (07:39→22:40)
[2018-01-09] MEDS: Albuterol Neb 1.25 MG/3 ML VIAL IH SCH ×2 (07:40→11:15)
[2018-01-09] MEDS: Gabapentin 300 MG CAPSULE PO SCH ×3 (08:16→21:02)
[2018-01-09] MEDS: Levofloxacin 500 MG/100 ML 500 MG/100 ML BAG IVPB SCH (08:16)
[2018-01-09] MEDS: Aspirin 81 MG TAB.CHEW PO SCH (08:16)
[2018-01-09] MEDS: MethylPREDNISolone 40 MG/ML VIAL IVP SCH ×3 (08:16→23:43)
[2018-01-09] MEDS: Diltiazem CD (24hr) 120 MG CAPSULE PO SCH (08:16)
[2018-01-09] MEDS: Insulin LISPRO 300 UNITS/3 ML VIAL SQ SCH ×5 (11:28→21:06)
[2018-01-09] MEDS ORDERED: Albuterol 2.5 MG/3 ML NEBULIZER IH PRN (11:51)
--- NOTE | 2018-01-09 12:38 | Event Note ---
Date of Encounter: 01/09/18 Time of Encounter: 12:30 S: Patient had no acute events after admission. She states that she still has significant cough. Breathing is somewhat better. She has lower back pain that is chronic in nature. She denies fever, chills, chest pain, nausesa, vomiting, abdominal pain, changes in bladder, and changes in bowels. She has no other complaints at this time. O: Gen - Awake, alert, oriented, no acute distress HEENT - NCAT, PERRLA, EOMI, hearing grossly intact, oropharynx benign CV - RRR, normal S1 and S2, no M/R/G, no BLE edema Resp - Mildly labored WOB, intermittent cough, coarse breath sounds bilaterally with intermittent expiratory wheezing, no rales or rhonchi GI - Soft, NT/ND, no masses, normal bowel sounds, no HSP Skin - Warm, dry, no rashes/lesions/ulcer Psych - Normal mood and affect, no depression/anxiety/agitation A/P: 1) Acute Exacerbation of COPD - RT consulted. Continue scheduled duonebs and albuterol nebs PRN. Continue supplemental oxygen; wean to home 2L NC as tolerated. Continue solumedrol; will taper with improvement. Start guaifenesin , claritin, mucomyst, and chest PT for cough. Turn/cough/deep breathe, incentive spirometer, and up to chair TID. 2) CKD - At baseline. Avoid nephrotoxins. Maintain oral hydration. Recheck BMP in AM. 3) DM Type II - Continue accuchecks and increased to high dose SSI QID AC/HS. Continue home basal/bolus regimen. 4) VITO - CPAP QHS. SW consulted to get new home CPAP.
[2018-01-09] MEDS: Nicotine 21 MG PATCH.TD24 TD SCH (12:52)
[2018-01-09] MEDS: Loratadine 10 MG TABLET PO SCH (12:52)
[2018-01-09] MEDS: Nystatin POWDER 30 GM BOTTLE TP SCH ×2 (12:53→21:12)
[2018-01-09] MEDS: Ipratropium/Albuterol Neb 3 ML IH SCH ×3 (13:51→22:40)
[2018-01-09] MEDS: Acetylcysteine 10% 2 ML INHSOL IH SCH ×2 (15:50→22:40)
--- NOTE | 2018-01-09 16:25 | Electrocardiograph Report ---
[address] [place] [address] Test Date: 2018-01-08 Pat Name: Yeny Body Department: 103 Room: 2A37 Gender: Operations Program Manager: ROSCOE : 1970 Requested By: Gisel Major Order Number: [id number] Reading MD: Yaneli Acevedo Measurements Intervals [place] Rate: 89 P: 59 MO: 140 QRS: 27 QRSD: 98 T: 59 QT: 350 QTc: 397 Interpretive Statements SINUS RHYTHM NONSPECIFIC ST-WAVE ABNORMALITY Electronically Signed On 01-09-2018 16:23:37 EDT by Yaneli Acevedo
[2018-01-09] MEDS: *HR* Heparin 5,000 UNIT/ML VIAL SQ SCH (17:17)
[2018-01-09] MEDS: Insulin DETEMIR 100 UNIT/ML X5UNITS SQ SCH (21:03)
[2018-01-10] MEDS: Ipratropium/Albuterol Neb 3 ML IH SCH ×4 (03:42→22:26)
[2018-01-10] MEDS: Acetylcysteine 10% 2 ML INHSOL IH SCH ×4 (03:42→22:26)
[2018-01-10] MEDS: *HR* Heparin 5,000 UNIT/ML VIAL SQ SCH ×2 (05:54→17:14)
[2018-01-10] MEDS: *HR* HYDROcodone/Acet 5/325 mg TABLET PO PRN ×3 (05:59→23:04)
[2018-01-10] MEDS: MethylPREDNISolone 40 MG/ML VIAL IVP SCH (08:41)
[2018-01-10] MEDS: Nicotine 21 MG PATCH.TD24 TD SCH (08:42)
[2018-01-10] MEDS: Aspirin 81 MG TAB.CHEW PO SCH (08:42)
[2018-01-10] MEDS: Gabapentin 300 MG CAPSULE PO SCH ×3 (08:42→20:41)
[2018-01-10] MEDS: Loratadine 10 MG TABLET PO SCH (08:42)
[2018-01-10] MEDS: Diltiazem CD (24hr) 120 MG CAPSULE PO SCH (08:42)
[2018-01-10] MEDS: Levofloxacin 500 MG/100 ML 500 MG/100 ML BAG IVPB SCH (08:43)
[2018-01-10] MEDS: Insulin LISPRO 300 UNITS/3 ML VIAL SQ SCH ×7 (08:44→20:41)
[2018-01-10] MEDS: Nystatin POWDER 30 GM BOTTLE TP SCH ×2 (08:45→23:05)
[2018-01-10] MEDS: Budesonide/Formoterol 160/4.5 MDI IH SCH ×2 (10:41→22:25)
--- NOTE | 2018-01-10 11:11 | Internal Med Progress Note ---
Date of Encounter: 01/10/18 Time of Encounter: 11:09 - Assessment and plan (1) COPD exacerbation Current Visit: Yes Status: Acute Assessment and plan: Improving. RT consulted. Continue scheduled duonebs and albuterol nebs PRN. Continue supplemental oxygen; wean to home 2L NC PRN as tolerated. Taper steroids down to prednisone 40 mg PO BID. Continue guaifenesin, claritin, mucomyst, and chest PT for cough. Turn/cough/deep breathe, incentive spirometer , and up to chair TID. Plan for discharge tomorrow if stable on lower steroid dose and weaned off supplemental O2. (2) CKD (chronic kidney disease) stage 3, GFR 30-59 ml/min Current Visit: Yes Status: Chronic Assessment and plan: Creatinine at baseline. Labwork from today pending. Avoid nephrotoxins. Maintain oral hydration. Recheck BMP in AM. (3) Anxiety Current Visit: Yes Status: Chronic Assessment and plan: Continue home duloxetine and paroxetine. Start vistaril 10 mg PO Q8H PRN anxiety. (4) VITO (obstructive sleep apnea) Current Visit: Yes Status: Chronic Assessment and plan: CPAP QHS. Refer for new sleep study at discharge. (5) Positive urine drug screen Current Visit: Yes Status: Acute (6) Type 2 diabetes mellitus Current Visit: Yes Status: Chronic Assessment and plan: Continue accuchecks and high dose SSI QID AC/HS. Continue home basal/bolus regimen. Qualifiers: Diabetes mellitus care home insulin use: unspecified care home insulin use status Diabetes mellitus complication status: with unspecified complications Qualified Code(s): E11.8 - Type 2 diabetes mellitus with unspecified complications (7) DVT prophylaxis Current Visit: Yes Status: Acute Assessment and plan: Continue SQ heparin. - Time Spent With Patient Total time spent is greater than 50% in coordination of care (as documented) at patient's floor/unit and/or counseling patient: less than 15 minutes - Subjective Interval history: Patient had no acute events overnight. She states that breathing is much improved today. She states that she is 80% back to her normal respiratory status. Her only complaint today is increased anxiety. I spoke with social work professor today who states that she needs new sleep study in order to get new CPAP. I will refer for sleep study at discharge. Patient denies chest pain, fever, chills, nausea, vomiting, and abdominal pain. She has no other complaints today. - Constitutional Vitals: Temp Pulse Resp BP Pulse Ox 98.1 F 92 16 142/65 95 01/10/18 10:34 01/10/18 10:34 01/10/18 10:34 01/10/18 10:34 01/10/18 10:34 General appearance: Present: cooperative, A&O X 3, morbidly obese, pleasant, no acute distress, answers questions appropriately - Respiratory Respiratory exam: Absent: accessory muscle use, rales, rhonchi, wheezes Additional comments: Normal WOB, coarse breath sounds bilaterally - Cardiovascular Cardiovascular exam: Present: RRR, +S1, +S2. Absent: diastolic murmur, gallop, rubs, systolic murmur Additional comments: No BLE edema - GI/Abdominal GI/Abdominal exam: Present: normal bowel sounds, soft. Absent: distended, hepatomegaly, mass, splenomegaly, tenderness - Psychiatric Psychiatric exam: Present: normal affect, normal mood. Absent: agitated, anxious, depressed - Skin Skin exam: Present: dry, intact, warm. Absent: cyanosis, rash Internal Medicine: Result - Labs CBC & Chem 7: 01/09/18 02:13 01/09/18 02:13 - ABG Interpretation ABG results: PT/INR, D-dimer PT 12.4 Seconds (9.4-12.1) H 01/09/18 02:13 Consult Discharge Plan - Plan Instructions: Depression (DC), Generalized Anxiety Disorder (GEN), Anxiety (DC)
[2018-01-10 11:26] LABS: Mean Corpuscular HGB Conc 30.7 g/dL (31.6-35.5); Platelet Count 471 K/mcL (140-400)
[2018-01-10 11:28] LABS: Basophils # 0.1 K/mcL (0.0-0.2); Basophils % 0.4 %; Hematocrit 36.8 % (35.3-44.9); Hemoglobin 11.3 g/dL (11.5-15.4); Immature Granulocytes % 3.5 % (0-4); Lymphocytes # 2.2 K/mcL (0.6-4.6); Lymphocytes % 7.8 %; Mean Corpuscular Hemoglobin 26.8 pg (28.0-33.3); Mean Corpuscular Volume 87.4 fL (83.0-100.0); Mean Platelet Volume 10.4 fL (9.4-12.4); Monocytes # 0.5 K/mcL (0.0-1.3); Monocytes % 1.8 %; Neutrophils # 24.7 K/mcL (1.6-8.9); Red Blood Count 4.21 M/mcL (3.82-4.97); Red Cell Distribution Width 17.2 % (11.5-14.5); Segmented Neutrophils % 86.5 %
[2018-01-10 11:53] LABS: Calcium 9.2 mg/dL (8.6-10.3); Potassium 4.7 mEq/L (3.5-5.1)
[2018-01-10] MEDS: predniSONE 20 MG TABLET PO SCH (17:06)
[2018-01-10] MEDS: Insulin DETEMIR 100 UNIT/ML X5UNITS SQ SCH (20:45)
[2018-01-11] MEDS: Acetylcysteine 10% 2 ML INHSOL IH SCH ×2 (03:48→10:02)
[2018-01-11] MEDS: Ipratropium/Albuterol Neb 3 ML IH SCH ×2 (03:48→10:02)
[2018-01-11 05:23] LABS: Basophils % 0.5 %; Hematocrit 35.3 % (35.3-44.9); Immature Granulocytes % 6.9 % (0-4); Lymphocytes # 2.4 K/mcL (0.6-4.6); Lymphocytes % 7.8 %; Mean Corpuscular HGB Conc 31.2 g/dL (31.6-35.5); Mean Corpuscular Hemoglobin 27.3 pg (28.0-33.3); Mean Corpuscular Volume 87.6 fL (83.0-100.0); Mean Platelet Volume 10.4 fL (9.4-12.4); Monocytes % 3.3 %; Neutrophils # 24.7 K/mcL (1.6-8.9); Platelet Count 433 K/mcL (140-400); Red Blood Count 4.03 M/mcL (3.82-4.97); Red Cell Distribution Width 17.1 % (11.5-14.5); Segmented Neutrophils % 81.5 %
[2018-01-11 05:24] LABS: Basophils # 0.2 K/mcL (0.0-0.2)
[2018-01-11 05:40] LABS: Potassium 5.4 mEq/L (3.5-5.1)
[2018-01-11] MEDS: *HR* Heparin 5,000 UNIT/ML VIAL SQ SCH (05:45)
[2018-01-11 06:00] LABS: Reactive Lymphocytes Present (Not Present)
[2018-01-11 06:01] LABS: Toxic Granulation Present (Not Present)
[2018-01-11] MEDS ORDERED: levoFLOXacin 500 MG TABLET PO SCH (09:00)
[2018-01-11] MEDS ORDERED: Levofloxacin 500 MG/100 ML 500 MG/100 ML BAG IVPB SCH (09:00)
[2018-01-11] MEDS: Gabapentin 300 MG CAPSULE PO SCH (09:07)
[2018-01-11] MEDS: predniSONE 20 MG TABLET PO SCH (09:07)
[2018-01-11] MEDS: Aspirin 81 MG TAB.CHEW PO SCH (09:07)
[2018-01-11] MEDS: Diltiazem CD (24hr) 120 MG CAPSULE PO SCH (09:07)
[2018-01-11] MEDS: Loratadine 10 MG TABLET PO SCH (09:07)
[2018-01-11] MEDS: Insulin LISPRO 300 UNITS/3 ML VIAL SQ SCH ×4 (09:08→11:48)
[2018-01-11] MEDS: Nicotine 21 MG PATCH.TD24 TD SCH (09:08)
[2018-01-11] MEDS: *HR* HYDROcodone/Acet 5/325 mg TABLET PO PRN (09:21)
[2018-01-11] MEDS: Nystatin POWDER 30 GM BOTTLE TP SCH (09:27)
[2018-01-11] MEDS: Budesonide/Formoterol 160/4.5 MDI IH SCH (10:01)
[2018-01-11] MEDS ORDERED: Levofloxacin 250 MG/50 ML 250 MG/50 ML BAG IVPB ONE (10:16)
[2018-01-11 10:59] LABS: Mean Corpuscular HGB Conc 31.1 g/dL (31.6-35.5); Platelet Count 445 K/mcL (140-400)
[2018-01-11 11:00] LABS: Hematocrit 35.1 % (35.3-44.9); Hemoglobin 10.9 g/dL (11.5-15.4); Mean Corpuscular Hemoglobin 27.3 pg (28.0-33.3); Mean Corpuscular Volume 87.8 fL (83.0-100.0); Mean Platelet Volume 10.7 fL (9.4-12.4); Red Cell Distribution Width 17.2 % (11.5-14.5)
[2018-01-11 11:10] VITALS: BP 149/76
--- NOTE | 2018-01-11 11:47 | Discharge Summary ---
- NOTES TO OUTPATIENT PROVIDER Notes to Outpatient Provider: Follow up with PCP in 2-3 days after discharge. Recheck BMP and CBC at that time. Follow up with pulmonology for sleep study. Orders not resulted at time of discharge: Pending orders 01/09/18 01:53 Urinalysis reflex Microscopic [URIN] Routine Date of Encounter: 01/11/18 Time of Encounter: 11:44 - Discharge Diagnosis (1) COPD exacerbation Priority: Primary Status: Acute (2) CKD (chronic kidney disease) stage 3, GFR 30-59 ml/min Priority: Secondary Status: Chronic (3) Anxiety Priority: Secondary Status: Chronic (4) VITO (obstructive sleep apnea) Priority: Secondary Status: Chronic (5) Positive urine drug screen Priority: Secondary Status: Acute (6) Type 2 diabetes mellitus Priority: Secondary Status: Chronic Qualifiers: Diabetes mellitus residential insulin use: unspecified residential insulin use status Diabetes mellitus complication status: with unspecified complications Qualified Code(s): E11.8 - Type 2 diabetes mellitus with unspecified complications (7) Lower back pain Priority: Secondary Status: Acute Qualifiers: Chronicity: unspecified Back pain laterality: unspecified Sciatica presence: unspecified whether sciatica present Qualified Code(s): M54.5 - Low back pain (8) DVT prophylaxis Priority: Secondary Status: Acute Hospital course: Ms. Boyd is a 47 year old female admitted for acute exacerbation of COPD. Patient was admitted to general medical floor with telemetry. She was started on solumedrol, IV levaquin, and nebs. As respiratory status improved, she was weaned to prednisone and PO levaquin. She states today that she is 90% back to baseline respiratory status. She wants to go home. She has some lower back pain for which she takes norco. She has CKD which remained better than baseline this hospitalization. She was weaned to room air today. She will get prescription for outpatient sleep study so she can get new CPAP. She will follow up with PCP in 2-3 days after discharge. They can recheck BMP and CBC at that time. Patient has met maximum benefit of this hospitalization and will be discharged home in stable condition. Discharge discussed with: patient, nurse, other (Pharmacist) - Time Spent with Patient Total time spent providing and/or coordinating discharge services: Less than 30 minutes - Discharge Medications Prescriptions: HYDROcodone/Acet 5/325 mg [[place] 5-325 mg] 1 tab PO Q6HR PRN 2 Days #8 tablet PRN Reason: Severe Pain GuaiFENesin ER [Mucinex] 1,200 mg PO BID 5 Days #20 tbbp.12hr Levofloxacin [Levaquin] 750 mg PO DAILY 5 Days #5 tablet predniSONE [PredniSONE] See Taper PO DAILY 16 Days #40 tablet Home Medications: Oxygen 2 l NS QPM PRN 01/11/17 [History] Albuterol Neb [AccuNeb] 1 vial IH 6XD PRN #10 inhsol 01/25/17 [Rx] Atorvastatin Calcium [Lipitor] 80 mg PO HS #30 tab 01/25/17 [Rx] Budesonide/Formoterol 160/4.5 [Symbicort 160/4.5] 2 puff IH BIDRESP #1 inhaler 01/25/17 [Rx] Diltiazem CD (24hr) [Cardizem CD] 120 mg PO DAILY #60 cap.er.24h 01/25/17 [Rx] Nitroglycerin 0.4 mg SL Q5MIN PRN #60 tab.subl 01/25/17 [Rx] Insulin LISPRO [Humalog Kwikpen U-100] 30 unit SQ TIDAC 02/11/17 [History] Aspirin 81 mg PO DAILY #15 tab.chew 02/12/17 [Rx] Gabapentin [Neurontin] 300 mg PO TID #45 02/12/17 [Rx] Omeprazole [PriLOSEC] 20 mg PO DAILY #15 capsule. 02/12/17 [Rx] Insulin Degludec [Tresiba Flextouch U-100] 80 unit SQ HS 03/10/17 [History] Albuterol Sulfate [Albuterol Inhaler] 2 puff IH Q4H PRN 01/09/18 [History] DULoxetine [Cymbalta] 30 mg PO DAILY 01/09/18 [History] Lidocaine Patch [Lidoderm 5% patch] 2 patch TP Q24H PRN 01/09/18 [History] Lisinopril [Zestril] 10 mg PO DAILY 01/09/18 [History] Nystatin POWDER [Nystop] 1 appl TP BID 01/09/18 [History] Paroxetine [Paxil] 20 mg PO DAILY 01/09/18 [History] Polyethylene Glycol 3350 [MiraLAX Powder Bulk 17.9 Oz] 1 scoop PO DAILY [History] GuaiFENesin ER [Mucinex] 1,200 mg PO BID 5 Days #20 tbbp.12hr 01/11/18 [Rx] HYDROcodone/Acet 5/325 mg [[place] 5-325 mg] 1 tab PO Q6HR PRN 2 Days #8 tablet [Rx] Levofloxacin [Levaquin] 750 mg PO DAILY 5 Days #5 tablet 01/11/18 [Rx] Nicotine Patch [Nicoderm] 21 mg TD DAILY patch.td24 01/11/18 [Rx] predniSONE [PredniSONE] See Taper PO DAILY 16 Days #40 tablet 01/11/18 [Rx] Allergies/Adverse Reactions: 3 Allergy/AdvReac Type Severity Reaction Status Date / Time No Known Allergies Allergy Verified 01/09/18 10:21 Date of admission: 01/08/18 23:28 Primary care physician: PCP NONE Consults: 01/09/18 05:54 Consult to Nurse Navigator [CONS] Routine Comment: 01/09/18 11:46 Consult to Diabetes Education [CONS] Stat Comment: Reason for Consult: Diabetic Diet Education 01/09/18 12:36 Consult to Collection Team Lead [CONS] Routine Reason for SW Consult: Patient needs new home CPAP machine for VITO. 01/09/18 12:37 Consult to Respiratory Therapy [CONS] Stat Reason for Consult: COPD exacerbation Call Completed: No Discharging clinician: Grayson Shearer Anticipated date of discharge: 01/11/18 - Constitutional Vitals: Temp Pulse Resp BP Pulse Ox 97.5 F L 82 16 149/76 96 01/11/18 11:06 01/11/18 11:06 01/11/18 11:06 01/11/18 11:06 01/11/18 11:06 General appearance: Present: cooperative, A&O X 3, morbidly obese, pleasant, no acute distress, answers questions appropriately - Respiratory Respiratory exam: Absent: accessory muscle use, rales, rhonchi, wheezes Additional comments: Normal WOB, coarse breath sounds bilaterally - Cardiovascular Cardiovascular exam: Present: RRR, +S1, +S2. Absent: diastolic murmur, gallop, rubs, systolic murmur Additional comments: No BLE edema - GI/Abdominal GI/Abdominal exam: Present: normal bowel sounds, soft. Absent: distended, hepatomegaly, mass, splenomegaly, tenderness - Psychiatric Psychiatric exam: Present: normal affect, normal mood. Absent: agitated, anxious, depressed - Skin Skin exam: Present: dry, intact, warm. Absent: cyanosis, rash - Patient Status Disposition: Home, Self-Care Condition: Good Overall status at discharge: patient is progressing back to baseline - Discharge Instructions Instructions: Depression (DC), Generalized Anxiety Disorder (GEN), Anxiety (DC) [facility] [place] [Non-Partnered Physician] - 01/18/18 10:00 am (Please follow up as schedule...) NONE,PCP [Primary Care Provider] - Additional Instructions: Follow up with PCP in 2-3 days after discharge. Recheck BMP and CBC at that time. Follow up with pulmonology for sleep study. - Diet and Activity Activity: resume usual activities as tolerated Diet: diabetic diet, low fat, low cholesterol, low salt diet, other (Cardiac Diet, Renal Diet)
[2018-01-12] MEDS ORDERED: Levofloxacin 750 MG/150 ML 750 MG/150 ML BAG IVPB SCH (09:00)
== END 2018-01-11 13:58 | disposition home or self-care (01) ==
LOC: EMEROO 21:05 → 2ANU 21:05
PROVIDERS: ADMIT Internal Medicine Nephrology; ATTEND Internal Medicine Nephrology